=== PATIENT | female | born 1930 | race Caucasian/White ===

== ENCOUNTER 2017-02-19 15:28 | Inpatient (IN) | payer MEDICARE, BC ==
[2017-02-19 16:45] LABS: Bilirubin Negative (Negative); Blood, Urine Negative (Negative); Glucose, Urine (Dipstick) Negative (Negative); Ketone, Urine Negative (Negative); Nitrite Negative (Negative); Protein, Urine (Dipstick) Negative (Neg-Trace)
[2017-02-19 16:48] LABS: Bacteria/HPF None Seen HPF (None Seen); Hyaline Casts/LPF 0-3 HYALINE CAST LPF (0-3 Hyaline); RBC/HPF 0-3 HPF (0-3); Squamous Epithelial 0-3 HPF (0-3)
[2017-02-19 17:53] LABS: #Basophils 0.1 thou/uL (0.0-0.2); #Eosinphils 0.1 thou/uL (0.0-0.7); #Monocytes 0.5 thou/uL (0.11-0.59); #Neutrophils 4.7 thou/uL (1.40-6.50); %Basophils 0.8 % (0.0-1.0); %Eosinophils 1.5 % (0.0-10.0); %Lymphocytes 26.7 % (21.0-51.0); %Monocytes 7.4 % (0.0-10.0); Hematocrit 37.5 % (36.0-47.0); Mean Platelet Volume 8.6 fL (7.4-10.4); Red Blood Cell (RBC) Count 3.96 mill/uL (4.20-5.40); White Blood Cell (WBC) Count 7.3 thou/uL (4.8-10.8)
--- NOTE | 2017-02-19 18:10 | RAD ---
CHEST ONE VIEW 02/19/17 HISTORY: Near syncopal episode and weakness. Atrial fibrillation. COMPARISON: None. FINDINGS: Portable upright chest: Atherosclerosis of the aorta. Calcified AP window lymph node. Normal cardiac silhouette. The pulmonar y vessels and hilum are normal. Costophrenic angles are clear. No consolidation or masses. Chronic ch anges are presumed to be throughout the lung parenchyma. Bilateral apical pleural thickening. No pneu mothorax. Hiatal hernia is noted. Dorsal column stimulator is identified. IMPRESSION: No acute cardiopulmonary process. POS: [facility]
[2017-02-19 18:16] LABS: ALT (SGPT) 10 U/L (8-55); AST (SGOT) 15 U/L (5-34); Alkaline Phosphatase 65 U/L (40-150); Anion Gap 11 mmol/L (10-20); BUN (Urea Nitrogen) 6 mg/dL (9.8-20.1); Bilirubin, Total 0.3 mg/dL (0.2-1.2); CK (CPK) 72 U/L (29-168); Calc. Creatinine Clearance 0 mL/min (70-130); Calcium 8.7 mg/dL (7.8-10.44); Carbon Dioxide 25 mmol/L (23-31); Chloride 100 mmol/L (98-107); Estimated GFR-MDRD 85; Globulin 2.5 g/dL (2.4-3.5); Magnesium 1.8 mg/dL (1.6-2.6)
[2017-02-19 18:20] LABS: Troponin I Less than 0.010 ng/mL (< 0.028)
--- NOTE | 2017-02-19 18:22 | CT ---
CT BRAIN 02/19/17 PROVIDED CLINICAL HISTORY: Syncope. FINDINGS: No comparisons. The ventricular system appears normal in size and morphology. There is no evidence for intracranial h emorrhage or mass effect. The extracranial soft tissues and osseous structures demonstrate no acute a bnormality. IMPRESSION: No evidence for intracranial hemorrhage or mass effect. POS: [facility]
[2017-02-19] MEDS ORDERED: HYDROcodone/Acetaminophen 10/325 mg Tablet ONE (19:42)
[2017-02-19] MEDS ORDERED: Morphine IR Tab 15 MG TAB PO SCH (20:00)
[2017-02-19] MEDS ORDERED: HYDROcodone/Acetaminophen 10/325 mg Tablet PO SCH (23:59)
[2017-02-20 00:17] VITALS: BMI 24.6
[2017-02-20] MEDS ORDERED: Ondansetron HCl/PF 4 MG/2 ML Vial IVP PRN (00:38)
[2017-02-20] MEDS ORDERED: Acetaminophen 325 MG TAB PO PRN (00:38)
[2017-02-20] MEDS: Sodium Chloride 0.9% 1,000 ML IV SCH ×2 (01:56→17:52)
--- NOTE | 2017-02-20 03:34 | HP ---
REASON FOR ADMISSION: Syncope, TIA, new onset atrial fibrillation. HISTORY OF PRESENT ILLNESS: The patient gives history of standing in kitchen on Saturday. She was trying to take her pills, but suddenly got pale and fell backwards. This was witnessed by her . From then on, she has been feeling dizzy and sick. She also says that she had a similar episode two months back. She also mentions that she has been getting short of breath on minimal exertion at home. No prior cardiac workup. On arrival here, the patient was found to be in new onset atrial fibrillation, but was rate controlled. She normally ambulates with a rolling walker at home. She has chronic pain and follows up with Dr. Brink. She has had nearly six back surgeries. The patient seems to twitch her right eye with almost ptosis like, but opens it wide and also has flattening of left nasolabial fold. PAST MEDICAL AND SURGICAL HISTORY: History of chronic back pain with nearly 6 surgeries done. She has had a right foot surgery, bilateral hand surgery, both ankle surgery, left shoulder surgery, tonsillectomy, hysterectomy, internal stimulator for chronic pain. CURRENT MEDICATIONS: Takes morphine 30 mg p.o. 3 times daily, [place] 10/325 mg q.6 hourly p.r.n., Robaxin p.r.n., Reglan p.r.n. Takes a PPI, which she cannot remember for GERD. The patient goes to [facility]. PERSONAL HISTORY: Does not abuse alcohol or drugs. No history of smoking. No known drug allergies. FAMILY HISTORY: Mother of CHF and its complications in her 80s. Her father also of CHF in his 80s. She lives with her who is had recent CO and also has history of Crohn's disease. REVIEW OF SYSTEMS: The following complete review of systems was negative, unless otherwise mentioned in the HPI or below: Constitutional: Weight loss or gain, ability to conduct usual activities. Skin: Rash, itching. Eyes: Double vision, pain. ENT/Mouth: Nose bleeding, neck stiffness, pain, tenderness. Cardiovascular: Palpitations, dyspnea on exertion, orthopnea. Respiratory: Shortness of breath, wheezing, cough, hemoptysis, fever or night sweats. Gastrointestinal: Poor appetite, abdominal pain, heartburn, nausea, vomiting, constipation, or diarrhea. Genitourinary: Urgency, frequency, dysuria, nocturia. Musculoskeletal: Pain, swelling. Neurologic/Psychiatric: Anxiety, depression. Allergy/Immunologic: Skin rash, bleeding tendency. PHYSICAL EXAMINATION: GENERAL: The patient is an 86-year-old female, who is currently not in any acute distress. VITAL SIGNS: Blood pressure 146/80, pulse 90 per minute, respiratory rate 16 per minute, temperature 98.5 degrees Fahrenheit, saturating 95% on room air. NECK: Supple, no elevated JVD. HEENT: Eyes: Extraocular muscles are intact. Pupils are reacting to light. Oral cavity: Mucous membranes are moist. No exudates or congestion. CARDIOVASCULAR SYSTEM: S1, S2 heard. Irregular rhythm. RESPIRATORY SYSTEM: Air entry 1+ bilateral. No rales or rhonchi. ABDOMEN: Soft, bowel sounds heard. No tenderness, rigidity or guarding. EXTREMITIES: No peripheral edema or calf tenderness. VASCULAR SYSTEM: Peripheral pulses 1+ bilateral. No ischemic ulcerations or gangrene. CENTRAL NERVOUS SYSTEM: No gross focal deficits seen. The patient is alert, awake, oriented x3. PSYCHIATRIC: The patient's mood is euthymic. No hallucinations or delusions. LABORATORY AND X-RAY FINDINGS: Chest x-ray done shows no acute cardiopulmonary process. CT brain without contrast done showed no intracranial hemorrhage or mass effect. Sodium 132, potassium 4.0, BUN 6, creatinine 0.6, glucose 109. Liver enzymes within normal limits. One set of cardiac enzymes are negative. Albumin is 3.5. White count of 7, H&H are 12 and 37, platelet count is 184, MCV is 94 with 63% neutrophils. EKG done shows atrial fibrillation at 91 beats per minute. 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 We will continue her morphine as before to prevent withdrawal. She will be on full dose of aspirin along with a small dose of Lipitor and normal saline at 80 mL per hour. We will obtain orthostatic blood pressures along with MRI and complete stroke workup including ultrasound carotids and echo with 2D Doppler to rule out thrombus. We will also consult Neurology electronic transaction implementer, Dr. Bc Paul and Cardiology electronic transaction implementer, Dr. Kline. The patient is 86 years old and has had nearly 2 falls in the last 2 months and not sure if she would be a candidate for anticoagulation with new onset atrial fibrillation. It is pretty much rate controlled and we will place her on a small dose of Lopressor at 25 mg twice daily for now. Please note I have seen and examined patient on 02/19/2017. MTDD
[2017-02-20] MEDS: Morphine IR Tab 15 MG TAB PO SCH ×2 (04:04→15:34)
[2017-02-20 06:38] LABS: #Eosinphils 0.2 thou/uL (0.0-0.7); #Lymphocytes 1.9 thou/uL (1.20-3.40); #Monocytes 0.5 thou/uL (0.11-0.59); #Neutrophils 3.7 thou/uL (1.40-6.50); %Basophils 0.4 % (0.0-1.0); %Eosinophils 2.9 % (0.0-10.0); %Lymphocytes 30.5 % (21.0-51.0); %Monocytes 7.9 % (0.0-10.0); Hematocrit 36.1 % (36.0-47.0); Mean Platelet Volume 8.6 fL (7.4-10.4); Red Blood Cell (RBC) Count 3.86 mill/uL (4.20-5.40); White Blood Cell (WBC) Count 6.4 thou/uL (4.8-10.8)
[2017-02-20 06:58] LABS: Anion Gap 11 mmol/L (10-20); BUN (Urea Nitrogen) 5 mg/dL (9.8-20.1); Calc. Creatinine Clearance 79 mL/min (70-130); Calcium 8.8 mg/dL (7.8-10.44); Carbon Dioxide 27 mmol/L (23-31); Chloride 104 mmol/L (98-107); Cholesterol 210 mg/dl (< 200 Desired); Estimated GFR-MDRD Greater than 90; LDL Cholesterol, Calculated 141 mg/dL
[2017-02-20] MEDS: HYDROcodone/Acetaminophen 10/325 mg Tablet PO PRN ×3 (08:09→17:54)
[2017-02-20] MEDS: Metoprolol Tartrate 25 MG TAB PO SCH ×2 (08:11→20:53)
[2017-02-20] MEDS: Docusate 100 MG CAP PO SCH ×2 (08:11→20:52)
[2017-02-20] MEDS: Famotidine 20 MG TAB PO SCH ×2 (08:11→20:52)
--- NOTE | 2017-02-20 08:20 | ULT ---
BILATERAL CAROTID DUPLEX ULTRASOUND: HISTORY: TIA. TECHNIQUE: [place] scale ultrasound with color flow and spectral Doppler imaging of the extracranial carotid artery systems was performed bilaterally. FINDINGS: There is plaque formation on either side. The peak systolic velocity in the right ICA measures 155 cm/s with an end-diastolic velocity of 47 cm /s and a systolic ratio of 1.85. The peak systolic velocity in the left ICA measures 82 cm/s with an end-diastolic velocity of 14 cm/s and a systolic ration of 0.95. Flow in both vertebral arteries remains antegrade. IMPRESSION: Moderate (50-69%) stenosis involving the right internal carotid artery. POS: OFF
[2017-02-20] MEDS ORDERED: Loratadine 10 MG TAB PO PRN (08:45)
[2017-02-20] MEDS ORDERED: Chloraseptic Spray 180 ml Bottle PO PRN (08:45)
[2017-02-20] MEDS ORDERED: HYDROcodone/Acetaminophen 5/325 mg Tablet PO PRN (08:45)
[2017-02-20] MEDS ORDERED: hydrALAZINE 20 MG/ML VIAL SLOW IVP PRN (08:45)
[2017-02-20] MEDS ORDERED: Diabetic Tussin 200 MG/10 ML UDCUP PO PRN (08:45)
[2017-02-20] MEDS ORDERED: Mag-Al 1200 mg/1200 mg/30 ML UDCUP PO PRN (08:45)
[2017-02-20] MEDS ORDERED: Sodium Chloride 0.65% Nasal 44 ML BOT EA NARE PRN (08:45)
[2017-02-20] MEDS ORDERED: Eucerin (Mineral Oil/Petrolatum,White) 30 gm Jar TOP PRN (08:45)
[2017-02-20] MEDS ORDERED: Milk Of Magnesia 30 ML UDCUP PO PRN (08:45)
[2017-02-20] MEDS ORDERED: Artificial Tears 18 DROP/0.9 ML EA EYE PRN (08:45)
[2017-02-20] MEDS ORDERED: Temazepam 15 MG CAP PO PRN (08:45)
[2017-02-20] MEDS ORDERED: Aspirin 325 mg Enteric Coated Tablet PO SCH (09:00)
[2017-02-20] MEDS ORDERED: Enoxaparin Sodium 40 MG/0.4 ML SYRINGE SC SCH (09:00)
[2017-02-20] MEDS: Metoclopramide HCl 10 MG TAB PO PRN (10:31)
[2017-02-20] MEDS ORDERED: Iopamidol 370 76% 100 ML VIAL ONE (11:58)
--- NOTE | 2017-02-20 12:32 | PDOC.PN ---
- Subjective Encounter Start Date: 02/20/17 Encounter Start Time: 10:10 -: old records requested/rev Patient seen and examined. No new complaints. No overnight events - Objective Resuscitation Status: Resuscitation Status FULL:Full Resuscitation MAR Reviewed: Yes Vital Signs & Weight: Vital Signs (12 hours) Temp Pulse Resp BP BP BP Pulse Ox 02/20/17 11:58 98.8 F 82 20 145/70 H 94 L 02/20/17 08:00 98.3 F 100 20 153/76 H 94 L 02/20/17 03:14 97.6 F 86 16 133/69 98 02/20/17 02:12 150/82 H 137/70 154/70 H Weight Weight 167 lb 4.8 oz I&O: 02/19/17 02/20/17 02/21/17 06:59 06:59 06:59 Intake Total 577 Balance 577 Result Diagrams: 02/20/17 05:53 02/20/17 05:53 Radiology Reviewed by me: Yes (Carotid US, CT brain) EKG Reviewed by me: Yes (afib) Phys Exam - Physical Examination Constitutional: NAD HEENT: PERRLA, moist MMs, sclera anicteric Neck: no JVD, supple Respiratory: no wheezing, no rales, no rhonchi Cardiovascular: no significant murmur, irregular Gastrointestinal: soft, non-tender, no distention, positive bowel sounds Musculoskeletal: no edema, pulses present Neurological: non-focal, normal sensation, moves all 4 limbs Psychiatric: normal affect, A&O x 3 Skin: no rash, normal turgor Dx/Plan (1) Carotid stenosis, right Code(s): I65.21 - OCCLUSION AND STENOSIS OF RIGHT CAROTID ARTERY Status: Acute (2) New onset atrial fibrillation Code(s): I48.91 - UNSPECIFIED ATRIAL FIBRILLATION Status: Acute (3) Syncope Code(s): R55 - SYNCOPE AND COLLAPSE Status: Acute (4) TIA (transient ischemic attack) Status: Acute (5) Chronic low back pain Code(s): M54.5 - LOW BACK PAIN; G89.29 - OTHER CHRONIC PAIN Status: Chronic (6) GERD (gastroesophageal reflux disease) Code(s): K21.9 - GASTRO-ESOPHAGEAL REFLUX DISEASE WITHOUT ESOPHAGITIS Status: Chronic - Plan cont current plan of care, plan discussed w/ family * pt does not want to go for MRI * will get CT angio head and neck for carotid stenosis and TIA * today Echo * cardiology and neurology consulted * discussed with pt and about plan of care * medication reviewed as below * symptomatic treatment * continue IVF * rate controlled. Review of Systems - Review of Systems ENT: negative: Ear Pain, Ear Discharge, Nose Pain, Nose Discharge, Nose Congestion, Mouth Pain, Mouth Swelling, Throat Pain, Throat Swelling, Other Respiratory: negative: Cough, Dry, Shortness of Breath, Hemoptysis, SOB with Excertion, Pleuritic Pain, Sputum, Wheezing Cardiovascular: negative: chest pain, palpitations, orthopnea, paroxysmal nocturnal dyspnea, edema, light headedness, other Gastrointestinal: negative: Nausea, Vomiting, Abdominal Pain, Diarrhea, Constipation, Melena, Hematochezia, Other Genitourinary: negative: Dysuria, Frequency, Incontinence, Hematuria, Retention , Other Musculoskeletal: negative: Neck Pain, Shoulder Pain, Arm Pain, Back Pain, Hand Pain, Leg Pain, Foot Pain, Other Skin: negative: Rash, Lesions, Yared, Bruising, Other - Medications/Allergies Allergies/Adverse Reactions: Allergies Allergy/AdvReac Type Severity Reaction Status Date / Time No Known Drug Allergies Allergy Verified 02/19/17 20:30 Medications: Current Medications Acetaminophen (Tylenol) 650 mg PO Q4H PRN PRN Reason: Headache/Fever or Pain Hydrocodone Bitart/Acetaminophen ([place] 10/325) 1 tab PO Q4H PRN PRN Reason: Moderate Pain (4-6) Last Admin: 02/20/17 08:09 Dose: 1 tab Al Hydroxide/Mg Hydroxide (Maalox) 15 ml PO Q4H PRN PRN Reason: Heartburn or Indigestion Artificial Tears (Tears Naturale) 0 drop EA EYE PRN PRN PRN Reason: Dry Eyes Aspirin (Ecotrin) 325 mg PO DAILY [facility] Last Admin: 02/20/17 08:11 Dose: 325 mg Atorvastatin Calcium (Lipitor) 10 mg PO HS [facility] Docusate Sodium (Colace) 100 mg PO BID [facility] Last Admin: 02/20/17 08:11 Dose: 100 mg Enoxaparin Sodium (Lovenox) 40 mg SC 0900 [facility] Last Admin: 02/20/17 08:12 Dose: 40 mg Famotidine (Pepcid) 20 mg PO BID [facility] Last Admin: 02/20/17 08:11 Dose: 20 mg Guaifenesin (Robitussin Sf) 200 mg PO Q4H PRN PRN Reason: Cough Hydralazine HCl (Apresoline) 10 mg SLOW IVP Q4H PRN PRN Reason: Systolic BP > 180 Sodium Chloride (Normal Saline 0.9%) 1,000 mls @ 80 mls/hr IV .[id number] [facility] Last Admin: 02/20/17 01:56 Dose: 1,000 mls Influenza Virus Vaccine (Fluzone High-Dose 2016- Syr) 0.5 ml IM .ONCE ONE Stop: 02/21/17 09:01 Last Admin: 02/20/17 10:31 Dose: 0.5 ml Loratadine (Claritin) 10 mg PO DAILYPRN PRN PRN Reason: Sinus Symptoms Magnesium Hydroxide (Milk Of Magnesium) 30 ml PO DAILYPRN PRN PRN Reason: Constipation Metoclopramide HCl (Reglan) 10 mg PO TID PRN PRN Reason: nausea Last Admin: 02/20/17 10:31 Dose: 10 mg Metoprolol Tartrate (Lopressor) 25 mg PO BID [facility] Last Admin: 02/20/17 08:11 Dose: 25 mg Mineral Oil/White Petrolatum (Eucerin Cream) 0 gm TOP BIDPRN PRN PRN Reason: Dry Skin Ondansetron HCl (Zofran) 4 mg IVP Q6H PRN PRN Reason: Nausea/Vomiting Phenol (Chloraseptic [place] 180 Ml Bot) 0 ml PO PRN PRN PRN Reason: Sore Throat Pneumococcal Polyvalent Vaccine (Pneumovax 23) 0.5 ml IM .ONCE ONE Stop: 02/21/17 09:01 Last Admin: 02/20/17 10:34 Dose: 0.5 ml Sodium Chloride (Flush - Normal Saline) 10 ml IVF Q12HR [facility] Last Admin: 02/20/17 08:12 Dose: Not Given Sodium Chloride (Flush - Normal Saline) 10 ml IVF PRN PRN PRN Reason: Saline Flush Sodium Chloride ([place] Nasal [place] 0.65%) 0 ml EA NARE QIDPRN PRN PRN Reason: Nasal Congestion Temazepam (Restoril) 15 mg PO HSPRN PRN PRN Reason: Insomnia
--- NOTE | 2017-02-20 15:15 | CT ---
CT ANGIO OF THE HEAD WITH AND WITHOUT CONTRAST: Technique: Multiple axial tomograms were obtained through the head both pre and post IV contrast. Pos t contrast images were obtained with dynamic arterial phase enhancement following an angio protocol w ith multiplanar reconstruction and 3D post processing. History: Carotid stenosis. FINDINGS: Noncontrast CT scan of head shows no evidence of mass, hemorrhage, or infarct. Mild mucosal thickenin g in the sphenoid air cells. Paranasal sinuses otherwise clear. CT angio of the head shows patent intracranial internal carotid arteries. Mild atherosclerotic calcif ications seen in the carotid portions of both internal carotid arteries, however, no stenosis. Anteri or cerebral arteries and middle cerebral arteries appear unremarkable. No evidence of stenosis or occ lusion. Basilar artery is patent. Posterior cerebrals appear unremarkable. Dural venous sinuses appea r patent. IMPRESSION: Unremarkable CT cerebral angio. CT ANGIO NECK Technique: Multiple axial tomograms were obtained through the neck with arterial phase enhancement fo llowin angio protocol with multiplanar reconstruction and 3D post processing. History: Carotid stenosis. FINDINGS: Carotid doppler study 02-20-17 described hemodynamically significant stenosis in the right internal c arotid artery. No evidence of stenosis at the origin of the arch vessels. The right common carotid artery is unremarkable. There is calcified plaque at the right carotid bulb and bifurcation extending into the proximal right internal carotid artery. There is focal stenosis above the bulb which does show evidence of approxim ately 50% diameter stenosis according to NASCET criteria. The right ICA above this stenosis is unrema rkable. Left common carotid is unremarkable although mildly tortuous. There is calcified plaque in the left bulb and proximal left ICA. This results in mild stenosis of th e proximal left ICA. The degree of stenosis is estimated in the 30-40% range by NASCET criteria. Vertebral arteries are patent and unremarkable. No soft tissue abnormality identified. IMPRESSION: 1. Moderate stenosis in the proximal right ICA and mild to moderate stenosis in the proximal left ICA . The right ICA stenosis is hemodynamically significant as described above. POS: [facility]
--- NOTE | 2017-02-20 15:31 | CON ---
DATE OF CONSULTATION: 02/20/2017 REASON FOR CONSULTATION: New onset A. fib and questionable TIA. HISTORY OF PRESENT ILLNESS: Ms. Rosas is a pleasant 86-year-old woman with no previous history o f underlying coronary disease. She recently presented with syncope. She has had 2 total episodes in the last couple of weeks. There were no predisposing symptoms. There was no warning. No chest omar n or pressure. No shortness of breath. No other ameliorating or exacerbating factors. She did have left-sided facial weakness and was concerned for CVA versus Herrera's palsy. PAST MEDICAL HISTORY: Chronic back pain and longer takes injections, right foot surgery, hand surger y, ankle surgery, shoulder surgery, tonsillectomy and hysterectomy. MEDICATIONS: Include [place], Robaxin, Reglan, PPI, morphine. SOCIAL HISTORY: No current alcohol or tobacco use. FAMILY HISTORY: Negative for CAD. REVIEW OF SYSTEMS: Ten point review of systems reviewed and as above, otherwise negative. PHYSICAL EXAMINATION: VITAL SIGNS: Blood pressure 145/70, pulse 82, temperature 98.8. GENERAL: Patient is a pleasant male/female who is in no acute distress. The patient appears his/her stated age. NEUROLOGIC: The patient is alert and oriented times 3 with no focal neurologic deficits. HEENT: Sclerae without icterus. Mouth has moist mucous membranes with normal pallor. NECK: No JVD. Carotid upstroke brisk. No bruits bilaterally. LUNGS: Clear to auscultation with unlabored respirations. BACK: No scoliosis or kyphosis. CARDIAC: Irregularly irregular with normal S1 and S2. No S3 or S4 noted. No significant rubs, murm urs, thrills, or gallops noted throughout the precordium. PMI is not displaced. There is no paraste rnal heave. ABDOMEN: Soft, nontender, nondistended. No peritoneal signs present. No hepatosplenomegaly. No ab normal striae. EXTREMITIES: 2+ femoral and 2+ dorsalis pedis pulses. No cyanosis, clubbing, or edema. SKIN: No gross abnormalities. PERTINENT LABORATORY DATA: Hemoglobin is 11.8, creatinine is 0.62. EKG shows atrial fibrillation with nonspecific ST-T wave changes. IMPRESSION: 1. Atrial fibrillation. 2. ? transient ischemic attack versus Herrera's palsy. RECOMMENDATIONS: Ms. Rosas does have new onset A. fib. She has syncopal episode. She may have paroxysmal atrial fibrillation and upon conversion had a bradycardic episode. At this point, her tel emetry monitoring has been stable. Her syncope may have also been due to recent TIA. At this point, given new onset A. fib and CHADS-VASc score greater than 2, would recommend novel oral anticoagulati on therapy. I did discuss this in full detail including the risks and benefits. She has agreed to p roceed with Eliquis 5 mg 1 p.o. b.i.d. Echo with Doppler will also be reviewed. Disposition from ne urology on TIA versus Herrera's palsy or CVA is also warranted.
[2017-02-20] MEDS: Morphine ER 30 MG TAB PO SCH ×2 (15:35→23:53)
[2017-02-20] MEDS ORDERED: Enoxaparin Sodium 80 MG/0.8 ML SYRINGE SC SCH (21:00)
[2017-02-20] MEDS ORDERED: Atorvastatin Calcium 10 MG TAB PO SCH (21:00)
--- NOTE | 2017-02-20 21:38 | CON ---
DATE OF CONSULTATION: 02/20/2017 REFERRING PROVIDER: Georgia Rodrigues M.D. REASON FOR CONSULTATION: Dizziness. HISTORY OF PRESENT ILLNESS: Ms. Rosas is a pleasant 86-year-old female who has been co nsidered for evaluation of dizziness. The patient reports that she was in the kitchen and was taking her medication after she took the medication she suddenly became very pale and passed out and fell t o the ground. Her witnessed the event who noticed that she was very pale and was unresponsiv e for less than one minute, there were no convulsions noted. No tongue biting or loss of bladder con trol noted. She had no postictal confusion. She reports that she had similar episode couple months ago while she was in bathroom, during that time as well she had became pale and passed out. She stat es that she has been having dizziness when she stands up out of the chair and feels like that she was going to pass out. She denies any headache, chest pain, palpitation, vision changes, numbness, ting ling or weakness. She denies any prior history of seizure disorder. PAST MEDICAL HISTORY: Significant for hypertension, new onset atrial fibrillation, chronic back pain . PAST SURGICAL HISTORY: Significant for lumbar spine surgery x6, right foot surgery, bilateral hand s urgery, bilateral ankle surgery, left shoulder surgery, tonsillectomy, hysterectomy, pain stimulator placement. CURRENT MEDICATIONS: Please review MAR. ALLERGIES: No known drug allergies. FAMILY HISTORY: Noncontributory. SOCIAL HISTORY: She denies smoking, alcohol use, or illicit drug use. REVIEW OF SYSTEMS: As mentioned in the HPI, otherwise negative. PHYSICAL EXAMINATION: VITAL SIGNS: Blood pressure of 142/67, pulse of 88, temperature of 98.3, respirations of 18, O2 sats of 93% on room air. GENERAL: Well-developed, well-nourished female in no apparent distress. RESPIRATORY: Clear to auscultation bilaterally. CARDIOVASCULAR: Irregular rate and rhythm. NEUROLOGIC: Mental status: The patient is awake, alert, oriented x3. Speech and language: Fluent speech. Cranial nerves: Pupils are 3 mm and reactive. Visual sanders are intact. Extraocular muscl es are intact. No nystagmus is noted. Face is symmetric. Tongue and uvula are midline. Motor exam showed normal tone and bulk with 5/5 strength in both upper and lower extremities. Sensory: Sensat ion is intact and symmetric. Deep tendon reflexes 2+ reflexes in both upper and lower extremities. Babinski: Plantar responses flexion bilaterally. Coordination intact to [id number] tapping bilaterally. LABORATORY DATA: Reviewed, which included CBC, CMP, lipid profile, and urinalysis, which is signific ant for hemoglobin of 11.8 and hematocrit of 36.1. Sodium of 132, total cholesterol of 210, LDL of 1 41, HDL of 56, and triglycerides of 63. Urinalysis showed 7-10 wbc and small leukocyte esterase. IMAGING STUDIES: CT scan of the head without contrast was reviewed, which showed no acute intracrani al abnormality. CT angiogram of the head and neck were reviewed, which showed 50% stenosis involving the right ICA. IMPRESSION: 1. Syncope. 2. New onset atrial fibrillation. 3. Right internal carotid artery stenosis. PLAN: Ms. Rosas is a pleasant 86-year-old female who presented with the episode of syn cope. She is found to have new onset atrial fibrillation, recent event is likely secondary to underl cherise cardiac cause. She had a CT angiogram of the neck done, which showed moderate hemodynamically s ignificant stenosis that on the right ICA, which is at 50%, this is best managed medically. At this time, I will recommend continuing her on aspirin 325 mg daily for secondary stroke prevention. Thank you for the consultation.
[2017-02-21] MEDS: Sodium Chloride 0.9% 1,000 ML IV SCH ×2 (01:57→05:55)
[2017-02-21 03:49] VITALS: TEMP 98.1
--- NOTE | 2017-02-21 06:36 | PRG ---
DATE OF SERVICE: 02/21/2017 Ms. Rosas is doing well, no current complaints of chest pain, pressure, dizziness, lightheadednes s, or syncope. PHYSICAL EXAMINATION: VITAL SIGNS: Blood pressure 125/75, pulse 75, temperature 98.1. LUNGS: Clear to auscultation. CARDIAC: Irregularly irregular. ABDOMEN: Soft, nontender, nondistended. EXTREMITIES: No edema. IMPRESSION: 1. Atrial fibrillation. 2.? Transient ischemic attack. RECOMMENDATIONS: I have added Eliquis 5 mg 1 p.o. t.i.d. I have also discontinue Enoxaparin. Would continue metoprolol 25 mg 1 p.o. b.i.d. Her rate appears to be well controlled. Plan is to follow up with Ms. Rosas in the next 1-2 weeks.
[2017-02-21 07:48] VITALS: BP 159/74
[2017-02-21] MEDS: Famotidine 20 MG TAB PO SCH (08:13)
[2017-02-21] MEDS: Docusate 100 MG CAP PO SCH (08:13)
[2017-02-21] MEDS: Morphine ER 30 MG TAB PO SCH (08:13)
[2017-02-21] MEDS: Metoprolol Tartrate 25 MG TAB PO SCH (08:13)
[2017-02-21] MEDS ORDERED: FLU VACC TS2017-18 (>65YR) 0.5 ML SYRINGE IM ONE (09:00)
[2017-02-21] MEDS ORDERED: Apixaban 5 MG TAB PO SCH (09:00)
[2017-02-21] MEDS: Metoclopramide HCl 10 MG TAB PO PRN (09:49)
--- NOTE | 2017-02-21 10:56 | DIS ---
DATE OF ADMISSION: 02/19/2017 DATE OF DISCHARGE: 02/21/2017 PRIMARY CARE PHYSICIAN: Dr. Alissa Murdock. DISCHARGE DISPOSITION: Home. PRIMARY DISCHARGE DIAGNOSES: 1. Syncope. 2. Transient ischemic attack. 3. New onset atrial fibrillation. 4. Moderate right carotid stenosis. 5. Moderate mitral and tricuspid regurgitation. SECONDARY DISCHARGE DIAGNOSES: Gastroesophageal reflux disease and chronic low back pain. PRIMARY PROCEDURE/OPERATION: None. RADIOLOGICAL INVESTIGATION: CT brain on admission showed no acute intracranial process. Chest x-ray showed no acute cardiopulmonary process. Echocardiography showed moderate mitral and tricuspid regurgitation. Carotid Doppler showed right-sided carotid stenosis. CT angiography, head and neck, consistent with moderate stenosis of right internal carotid artery as well as mild stenosis on the left internal carotid artery. SIGNIFICANT LABORATORY DATA: WBC 6.4, hemoglobin 11.8, platelets 181. Sodium 138, potassium 3.9, BUN 5, creatinine 0.62, calcium 8.8. LFTs normal. Cardiac enzymes negative. LDL 141. DISCHARGE MEDICATIONS: Eliquis 5 mg p.o. b.i.d., aspirin 81 mg p.o. daily, Lipitor 10 mg p.o. at bedtime, [place] one or two tablets q.4 hourly p.r.n., Reglan 10 mg t.i.d. p.r.n., metoprolol 50 mg p.o. b.i.d., MS Contin 30 mg p.o. q.8 hourly, omeprazole 20 mg p.o. daily. CONTRAINDICATIONS: None. CODE STATUS: FULL CODE. INPATIENT CONSULTANTS: Dr. Beverly Yancey was consulted and he recommended to treat carotid stenosis medically. Dr. Kline was consulted, who recommended to start anticoagulation and outpatient followup. TEST RESULTS PENDING ON DISCHARGE: None. ALLERGIES: No known drug allergy. DISCHARGE PLAN: Post hospital, the patient will follow up with primary care physician, Dr. Kline, and neurologist as instructed. HOSPITAL COURSE: An 86-year-old female, who was admitted by Dr. Rodrigues. Please see his H and P for further details. The patient had an episode of syncope as well as TIA and that is why she was admitted on the stroke floor. Initial CT brain was negative. Chest x-ray was normal. After admission, we did a neuro check and stroke workup. Echocardiography showed moderate mitral and tricuspid regurgitation. This patient also had new onset atrial fibrillation and her rate was under control with metoprolol. Cardiology was consulted and they recommended anticoagulation. We started and Eliquis therapy. We discussed the risk and benefit of Eliquis therapy and patient agreed to continue on Eliquis therapy. As a part of stroke workup, we did carotid Doppler study, which showed carotid stenosis and subsequently we found that the CT angiography also showed moderate stenosis on the right and [id number] stenosis on the left. Neurology recommended to continue medical therapy for her carotid stenosis. Patient medically remained stable. All consultants cleared her for discharge. PHYSICAL EXAMINATION: The patient is seen and examined at bedside today. VITAL SIGNS: Currently, temperature 98.1, pulse 87 and irregular, respiratory rate 20, saturation 92%, blood pressure 159/74, weight 167 pounds. GENERAL: The patient is currently alert, awake, in no acute distress. HEAD: Normocephalic, atraumatic. LUNGS: Clear to auscultation without any rhonchi. CARDIAC: S1, S2 irregular, soft systolic murmur noted, no gallop, no rub. ABDOMEN: Soft and benign without any tenderness. EXTREMITIES: No edema. NEUROLOGIC: Nonfocal examination. While in hospital, physical therapy recommended SNF referral, but when I spoke with the patient today, she did not wanted to go to nursing home home rather she wanted to go home. At this point, the patient is medically stable for discharge. While in hospital, her urine culture also came back negative. All new medication prescriptions sent to her pharmacy. Total time spent on discharge day more than 30 minutes MTDD
--- NOTE | 2017-02-21 12:21 | PDOC.PN ---
- Subjective Encounter Start Date: 02/21/17 Encounter Start Time: 07:05 Patient seen and examined. No new complaints. No overnight events - Objective Resuscitation Status: Resuscitation Status FULL:Full Resuscitation MAR Reviewed: Yes Vital Signs & Weight: Vital Signs (12 hours) Temp Pulse Resp BP BP Pulse Ox 02/21/17 07:48 98.1 F 87 20 159/74 H 92 L 02/21/17 03:43 98.1 F 79 20 125/75 96 Weight Weight 167 lb 4.8 oz I&O: 02/20/17 02/21/17 02/22/17 06:59 06:59 06:59 Intake Total 577 1653 Balance 577 1653 Result Diagrams: 02/20/17 05:53 02/20/17 05:53 EKG Reviewed by me: Yes (afib) Phys Exam - Physical Examination Constitutional: NAD HEENT: moist MMs, sclera anicteric Neck: no JVD, supple Respiratory: no wheezing, no rales, no rhonchi Cardiovascular: no significant murmur, irregular Gastrointestinal: soft, non-tender, no distention, positive bowel sounds Musculoskeletal: no edema, pulses present Neurological: non-focal, normal sensation, moves all 4 limbs Psychiatric: normal affect, A&O x 3 Skin: no rash, normal turgor Dx/Plan (1) Carotid stenosis, right Code(s): I65.21 - OCCLUSION AND STENOSIS OF RIGHT CAROTID ARTERY Status: Acute (2) New onset atrial fibrillation Code(s): I48.91 - UNSPECIFIED ATRIAL FIBRILLATION Status: Acute (3) Syncope Code(s): R55 - SYNCOPE AND COLLAPSE Status: Acute (4) TIA (transient ischemic attack) Status: Acute (5) Chronic low back pain Code(s): M54.5 - LOW BACK PAIN; G89.29 - OTHER CHRONIC PAIN Status: Chronic (6) GERD (gastroesophageal reflux disease) Code(s): K21.9 - GASTRO-ESOPHAGEAL REFLUX DISEASE WITHOUT ESOPHAGITIS Status: Chronic - Plan cont current plan of care * medication reviewed as below * symptomatic treatment * see discharge summery * medically stable for discharge.. Review of Systems - Review of Systems ENT: negative: Ear Pain, Ear Discharge, Nose Pain, Nose Discharge, Nose Congestion, Mouth Pain, Mouth Swelling, Throat Pain, Throat Swelling, Other Respiratory: negative: Cough, Dry, Shortness of Breath, Hemoptysis, SOB with Excertion, Pleuritic Pain, Sputum, Wheezing Cardiovascular: negative: chest pain, palpitations, orthopnea, paroxysmal nocturnal dyspnea, edema, light headedness, other Gastrointestinal: negative: Nausea, Vomiting, Abdominal Pain, Diarrhea, Constipation, Melena, Hematochezia, Other Genitourinary: negative: Dysuria, Frequency, Incontinence, Hematuria, Retention , Other Musculoskeletal: negative: Neck Pain, Shoulder Pain, Arm Pain, Back Pain, Hand Pain, Leg Pain, Foot Pain, Other - Medications/Allergies Allergies/Adverse Reactions: Allergies Allergy/AdvReac Type Severity Reaction Status Date / Time No Known Drug Allergies Allergy Verified 02/19/17 20:30
[2017-02-21] MEDS ORDERED: Metoprolol Tartrate 50 MG TAB PO SCH (21:00)
== END 2017-02-21 11:39 | disposition home or self-care (01) | DRG 69 ==
LOC: ERS 15:28 → 2SE 17:25
PROVIDERS: ADMIT Internal Medicine; ATTEND Internal Medicine
DX: G45.9 Transient cerebral ischemic attack, unspecified (principal); I08.1 Rheumatic disorders of both mitral and tricuspid valves; I48.91 Unspecified atrial fibrillation; G51.0 Bell's palsy; I10 Essential (primary) hypertension; F32.9 Major depressive disorder, single episode, unspecified; I65.23 Occlusion and stenosis of bilateral carotid arteries; G89.29 Other chronic pain; K21.9 Gastro-esophageal reflux disease without esophagitis; Z91.81 History of falling; Z79.891 Long term (current) use of opiate analgesic
CPT/HCPCS: 36415; 70450; 70496; 70498; 71010; 80048; 80053; 80061; 81003; 81015; 82553; 83735; 84484; 85025; 86850; 86900; 86901; 87086; 90471; 90682; 90732; 93005; 93306; 93880; A4216; G0008; G0009; G8978-GP-CJ; G8979-GP-CH; G8987-GO-CL; G8988-GO-CJ; G8996-GN-CI; G8997-GN-CI; J1650; J2405; Q2036

== ENCOUNTER 2017-03-06 13:03 | Emergency (ER) | payer MEDICARE, BC ==
[2017-03-06 14:24] LABS: Bilirubin Negative (Negative); Blood, Urine Negative (Negative); Clarity CLEAR (Clear); Glucose, Urine (Dipstick) Negative (Negative); Leukocyte Negative (Negative); Nitrite Negative (Negative); Protein, Urine (Dipstick) Negative (Neg-Trace); Specific Gravity, Urine 1.008 (1.002-1.036); pH, Urine 6.5 (5.0-9.0)
[2017-03-06 14:46] LABS: #Eosinphils 0.1 thou/uL (0.0-0.7); #Lymphocytes 1.8 thou/uL (1.20-3.40); #Monocytes 0.5 thou/uL (0.11-0.59); %Basophils 0.6 % (0.0-1.0); %Lymphocytes 21.4 % (21.0-51.0); %Neutrophils 71.1 % (42.0-75.0); Hemoglobin 12.7 g/dL (12.0-16.0); Mean Corpuscular HGB CONC 31.5 g/dL (32.0-36.0); Mean Corpuscular Hemoglobin 30.3 pg (27.0-31.0); Mean Corpuscular Volume 96.2 fl (81.0-99.0); Mean Platelet Volume 8.5 fL (7.4-10.4); Platelet Count 207 thou/uL (130-400); RBC Distribution Width 12.3 % (11.5-14.5); Red Blood Cell (RBC) Count 4.19 mill/uL (4.20-5.40); White Blood Cell (WBC) Count 8.4 thou/uL (4.8-10.8)
[2017-03-06 14:53] LABS: INR-International Normal Ratio 1.4; PTT 34.8 SEC (22.9-36.1)
--- NOTE | 2017-03-06 15:05 | RAD ---
PORTABLE CHEST ONE VIEW: Date: 03-06-17 Time: 2:55 p.m. History: Dyspnea. Dizziness. Weakness. FINDINGS: Comparison is made with exam of 02-19-17. The heart size is borderline. The aorta is tortuous. There is evidence of old granulomatous disease. The lungs are expanded without confluent areas of consolidation, pneumothorax, celestina pulmonary edema or pleural effusions. Dorsal column stimulator leads are again seen. A hiatal hernia is present. IMPRESSION: Stable exam. No acute process. POS: [facility]
[2017-03-06 15:09] LABS: ALT (SGPT) 7 U/L (8-55); AST (SGOT) 14 U/L (5-34); Albumin 3.6 g/dL (3.4-4.8); Alkaline Phosphatase 107 U/L (40-150); Anion Gap 15 mmol/L (10-20); BUN (Urea Nitrogen) 11 mg/dL (9.8-20.1); Bilirubin, Total 0.4 mg/dL (0.2-1.2); Calc. Creatinine Clearance 0 mL/min (70-130); Calcium 8.8 mg/dL (7.8-10.44); Carbon Dioxide 21 mmol/L (23-31); Chloride 105 mmol/L (98-107); Estimated GFR-MDRD 90; Globulin 2.3 g/dL (2.4-3.5); Glucose 110 mg/dL (83-110); Potassium 4.6 mmol/L (3.5-5.1); Protein, Total 5.9 g/dL (6.0-8.3); Sodium 136 mmol/L (136-145)
[2017-03-06 15:13] LABS: CKMB 0.8 ng/mL (0-6.6); Troponin I Less than 0.010 ng/mL (< 0.028)
--- NOTE | 2017-03-06 17:24 | CT ---
CT OF BRAIN PERFORMED WITHOUT CONTRAST ENHANCEMENT: 03/06/17 HISTORY: Altered mental status. COMPARISON: 02/19/17 study. Ventricular and cisternal system is within normal limits. There is no signs of intracerebral hemorrha ge or extra-axial fluid collections. The mastoid air cells and visualized sinuses are clear. IMPRESSION: No acute intracranial abnormalities. POS: [facility]
[2017-03-06] MEDS ORDERED: Morphine ER 30 MG TAB PO SCH (18:15)
--- NOTE | 2017-03-30 21:50 | EKG ---
Test Reason : DIZZINESS WEAKNESS Blood Pressure : / mmHG Vent. Rate : 073 BPM Atrial Rate : 357 BPM P-R Int : 000 ms QRS Dur : 074 ms QT Int : 376 ms P-R-T Axes : 000 015 041 degrees QTc Int : 414 ms Atrial fibrillation Abnormal ECG Confirmed by TYSON JIMENEZ ([id number]), acquisition editor CARRIE MARKS ([id number]) on 03/30/2017 9:49:51 PM Referred By: Confirmed By:TYSON JIMENEZ
== END 2017-03-06 19:58 | disposition home or self-care (01) ==
LOC: ERS 13:03
DX: R53.1 Weakness (principal); F32.9 Major depressive disorder, single episode, unspecified; Z79.899 Other long term (current) drug therapy; Z79.82 Long term (current) use of aspirin
CPT/HCPCS: 36415; 70450; 71045; 80053; 81003; 82553; 84484; 85025; 85610; 85730; 87804; 93005; J7620

== ENCOUNTER 2017-05-16 14:42 | Emergency (ER) | payer MEDICARE, BC ==
[2017-05-16 15:12] LABS: #Basophils 0.1 thou/uL (0.0-0.2); #Lymphocytes 1.6 thou/uL (1.20-3.40); #Monocytes 0.5 thou/uL (0.11-0.59); %Basophils 0.9 % (0.0-1.0); %Eosinophils 0.6 % (0.0-10.0); %Lymphocytes 19.2 % (21.0-51.0); %Monocytes 5.8 % (0.0-10.0); %Neutrophils 73.5 % (42.0-75.0); Hemoglobin 13.3 g/dL (12.0-16.0); Mean Corpuscular HGB CONC 32.8 g/dL (32.0-36.0); Mean Corpuscular Hemoglobin 30.3 pg (27.0-31.0); Mean Corpuscular Volume 92.4 fl (81.0-99.0); Mean Platelet Volume 9.2 fL (7.4-10.4); Platelet Count 231 thou/uL (130-400); RBC Distribution Width 12.7 % (11.5-14.5); Red Blood Cell (RBC) Count 4.39 mill/uL (4.20-5.40); White Blood Cell (WBC) Count 8.2 thou/uL (4.8-10.8)
[2017-05-16 15:24] LABS: Actual Bicarbonate (HCO3a) 21.1 mEq/L (22-26); Base Excess (BEa) -1.6 mEq/L (0 (+/-) 2.5); CO2 Tension 29.8 mmHg (35.0-45.0); Hematocrit-ABG 39.2 % (36.0-47.0); Hemoglobin (Hb) 12.6 g/dL (12.0-16.0); O2 Tension (PaO2) 78.8 mmHg (80.0-100.0); pH, Arterial 7.47 (7.35-7.45)
[2017-05-16 15:25] LABS: Analyzer IN Cardio ER; Calcium, Ionized 1.2 mmol/L (1.12-1.30); Puncture Site RRA
[2017-05-16 15:33] LABS: ALT (SGPT) Less than 7 U/L (8-55); AST (SGOT) 16 U/L (5-34); Albumin 4.1 g/dL (3.4-4.8); Alkaline Phosphatase 73 U/L (40-150); Anion Gap 16 mmol/L (10-20); BUN (Urea Nitrogen) 11 mg/dL (9.8-20.1); Bilirubin, Total 0.5 mg/dL (0.2-1.2); CK (CPK) 31 U/L (29-168); Calc. Creatinine Clearance 0 mL/min (70-130); Calcium 9.5 mg/dL (7.8-10.44); Carbon Dioxide 21 mmol/L (23-31); Chloride 104 mmol/L (98-107); Estimated GFR-MDRD 85; Globulin 2.6 g/dL (2.4-3.5); Glucose 125 mg/dL (83-110); Potassium 4.6 mmol/L (3.5-5.1); Protein, Total 6.7 g/dL (6.0-8.3); Sodium 136 mmol/L (136-145)
[2017-05-16 15:38] LABS: CKMB 1.2 ng/mL (0-6.6); Troponin I Less than 0.010 ng/mL (< 0.028)
[2017-05-16 15:49] LABS: Bilirubin Negative (Negative); Blood, Urine Negative (Negative); Clarity CLEAR (Clear); Glucose, Urine (Dipstick) Negative (Negative); Leukocyte Small (Negative); Nitrite Negative (Negative); Protein, Urine (Dipstick) Negative (Neg-Trace); Specific Gravity, Urine 1.007 (1.002-1.036); pH, Urine 7.5 (5.0-9.0)
[2017-05-16 15:50] LABS: Bacteria/HPF None Seen HPF (None Seen); Hyaline Casts/LPF 0-3 HYALINE CAST LPF (0-3 Hyaline); RBC/HPF 0-3 HPF (0-3); Squamous Epithelial 0-3 HPF (0-3); WBC/HPF 0-3 HPF (0-3)
--- NOTE | 2017-05-16 16:10 | RAD ---
UPRIGHT PORTABLE CHEST ONE VIEW 05/16/17 HISTORY: 86-year-old female with history of dyspnea and shortness of breath. COMPARISON: 03/06/17. Atherosclerosis and old granulomatous disease. Dorsal column stimulator leads overlie the lower thora cic spine. Small hiatal hernia. Minimal biapical pleural thickening. No confluent pneumonia, pleural effusion or other acute process. IMPRESSION: Old granulomatous disease. Minimal stable chronic changes. Hiatal hernia. No significant new process. POS: [facility]
[2017-05-16] MEDS ORDERED: Furosemide 20 MG/2 ML VIAL ONE (18:35)
--- NOTE | 2017-06-08 20:41 | EKG ---
Test Reason : SHORTNESS OF BREATH Blood Pressure : / mmHG Vent. Rate : 102 BPM Atrial Rate : 044 BPM P-R Int : 000 ms QRS Dur : 064 ms QT Int : 356 ms P-R-T Axes : 000 001 -50 degrees QTc Int : 463 ms Atrial fibrillation with rapid ventricular response Septal infarct , age undetermined Abnormal ECG Confirmed by DREAD RAE ([id number]), health editor CARRIE MARKS ([id number]) on 06/08/2017 8:41:06 PM Referred By: Confirmed By:DREAD RAE
== END 2017-05-16 18:14 | disposition home or self-care (01) ==
LOC: ERS 14:42
DX: R06.00 Dyspnea, unspecified (principal); F32.9 Major depressive disorder, single episode, unspecified; Z79.82 Long term (current) use of aspirin; Z79.899 Other long term (current) drug therapy; Z79.01 Long term (current) use of anticoagulants
CPT/HCPCS: 71045; 80053; 81003; 81015; 82553; 82805; 83880; 84484; 85025; 93005; 94760; 96374; J1940

== ENCOUNTER 2017-06-12 14:00 | Outpatient (CLI) | payer MEDICARE, BC ==
[~2017-06-12 14:00] MED LIST: ISOVUE-370 76%-LOCM 1 ML ONE
[2017-06-12 15:13] LABS: Estimated GFR-MDRD - POC Greater than 90
--- NOTE | 2017-06-12 15:52 | CT ---
CTA CHEST WITH CONTRAST: Date: 06/12/17 COMPARISON: CT abdomen/pelvis 08/05/09. HISTORY: Shortness of breath for weeks and atrial fibrillation. TECHNIQUE: Multiple contiguous axial images were obtained in a CTA of the chest with contrast per pulmonary embo lism protocol. 3D oblique MIP reformats and direct coronal reformats were performed. FINDINGS: The pulmonary arteries are well opacified without filling defects to suggest pulmonary emboli. The he art is normal in size without focal cardiac abnormality. No hilar or mediastinal lymphadenopathy seen . There are calcified hilar and mediastinal lymph nodes. There is a moderate hiatal hernia. A calcified granuloma is seen in the lingula. No suspicious pulmonary nodule is seen. No pneumothorax or pleural effusions are seen. There is a 5.5 cm cyst in the left kidney. There are calcifications in the left kidney which were not seen on the prior CT and may represent either vascular calcifications or nonobstructing renal calcif ications measuring up to 4 mm in size. The other visualized subdiaphragmatic structures are unremark able. The chest wall soft tissues are unremarkable. IMPRESSION: 1. No evidence of pulmonary thromboembolism. 2. Hiatal hernia. 3. Left renal cyst. 4. Calcifications in the left kidney may represent vascular calcifications or nonobstructing lef t renal calcifications. POS: [facility]
== END 2017-06-12 14:01 | disposition home or self-care (01) ==
LOC: CT 14:00
PROVIDERS: ATTEND Internal Medicine Pulmonary Disease
DX: I26.99 Other pulmonary embolism without acute cor pulmonale (principal); K44.9 Diaphragmatic hernia without obstruction or gangrene; N28.1 Cyst of kidney, acquired; N28.89 Other specified disorders of kidney and ureter
CPT/HCPCS: 71275; 82565

== ENCOUNTER 2017-10-31 10:42 | Observation (INO) | payer MEDICARE, BC ==
[2017-10-31 12:32] LABS: Bilirubin Negative (Negative); Blood, Urine Trace (Negative); Clarity CLEAR (Clear); Glucose, Urine (Dipstick) Negative (Negative); Leukocyte Negative (Negative); Nitrite Negative (Negative); Protein, Urine (Dipstick) Negative (Neg-Trace); Specific Gravity, Urine 1.004 (1.002-1.036); Urobilinogen 0.2 mg/dL (0.2-1.0)
[2017-10-31 12:34] LABS: Bacteria/HPF None Seen HPF (None Seen); Hyaline Casts/LPF 0-3 HYALINE CAST LPF (0-3 Hyaline); RBC/HPF 0-3 HPF (0-3); Squamous Epithelial 0-3 HPF (0-3); WBC/HPF 0-3 HPF (0-3)
[2017-10-31 12:44] LABS: ALT (SGPT) 7 U/L (8-55); AST (SGOT) 23 U/L (5-34); Albumin 3.5 g/dL (3.4-4.8); Alkaline Phosphatase 95 U/L (40-150); Anion Gap 13 mmol/L (10-20); BUN (Urea Nitrogen) 8 mg/dL (9.8-20.1); Bilirubin, Total 0.6 mg/dL (0.2-1.2); Calc. Creatinine Clearance 0 mL/min (70-130); Calcium 8.7 mg/dL (7.8-10.44); Carbon Dioxide 19 mmol/L (23-31); Chloride 103 mmol/L (98-107); Estimated GFR-MDRD 77; Globulin 3.4 g/dL (2.4-3.5); Glucose 120 mg/dL (83-110); Lipase Less than 4 U/L (8-78); Potassium 5.3 mmol/L (3.5-5.1); Protein, Total 6.9 g/dL (6.0-8.3); Sodium 130 mmol/L (136-145)
--- NOTE | 2017-10-31 12:52 | RAD ---
PORTABLE CHEST ONE VIEW: Date: 10-30-17 Time: 12:29 p.m. History: Weakness. Dyspnea. FINDINGS: Comparison is made with exam of 05-16-17. The heart size is normal. The aorta is tortuous. There is evidence of old granulomatous disease. The lungs are well expanded without focal areas of consolidation, pneumothoraces, or pleural effusions. IMPRESSION: No acute process. POS: [facility]
[2017-10-31] MEDS ORDERED: Acetaminophen 500 MG TAB ONE (13:22)
[2017-10-31 13:49] LABS: Troponin I Less than 0.010 ng/mL (< 0.028)
--- NOTE | 2017-10-31 15:06 | HP ---
DATE OF ADMISSION: 10/31/2017 PRIMARY CARE PHYSICIAN: Dr. Alissa Murdock. REASON FOR ADMISSION: Chest discomfort, generalized weakness, hyponatremia. HISTORY OF PRESENT ILLNESS: An 87-year-old female who is a very poor historian who came to emergency room with multiple complaints. She was reporting to emergency room physician about chest discomfort , but she denied chest discomfort to me. She was reporting to me that she was having epigastric disc omfort as well as chronic low back pain. The patient took her morphine and methocarbamol before comi ng to the emergency room. The patient was also having weakness and she denies any fall. She denies any palpitations. She denies any shortness of breath. She denies any constipation, diarrhea, melena or hematochezia. The patient is taking all her previous medication. The patient reports that she i s supposed to see Dr. John and they are going to order an echocardiography, but today she was not feeling good and that is why family member brought her to emergency room for evaluation. The patien t reports that her appetite is reduced and she is feeling on and off shortness of breath. She denies any every day basis orthopnea, PND or pedal edema. She denies any fever or chills. She denies any UTI symptoms. She denies any constipation, diarrhea, melena or hematochezia. She has a history of a trial fibrillation and she is on chronic anticoagulation with Xarelto. When I saw this patient in the emergency room, she reported that she is ready to go home, but her fam sanjuanita member wanted to keep her in hospital to rule out cardiac etiology. ALLERGIES: No known drug allergy. CURRENT HOME MEDICATIONS: Morphine sulfate 30 mg q.8 hourly p.r.n., aspirin 325 mg p.o. daily, Lasix 40 mg daily, methocarbamol 750 mg daily, omeprazole 20 mg daily, Reglan 5 mg daily, gabapentin 300 m g p.o. daily, Xarelto 20 mg p.o. daily. REVIEW OF SYSTEMS: The following complete review of systems was negative, unless otherwise mentioned in the HPI or below: Constitutional: Weight loss or gain, ability to conduct usual activities. Sk in: Rash, itching. Eyes: Double vision, pain. ENT/Mouth: Nose bleeding, neck stiffness, pain, te nderness. Cardiovascular: Palpitations, dyspnea on exertion, orthopnea. Respiratory: Shortness of breath, wheezing, cough, hemoptysis, fever or night sweats. Gastrointestinal: Poor appetite, abdom inal pain, heartburn, nausea, vomiting, constipation, or diarrhea. Genitourinary: Urgency, frequenc y, dysuria, nocturia. Musculoskeletal: Pain, swelling. Neurologic/Psychiatric: Anxiety, depressio n. Allergy/Immunologic: Skin rash, bleeding tendency. Please see my HPI for pertinent positive and negative. All other review of systems reviewed and negative except as mentioned in the HPI. PAST MEDICAL HISTORY: Chronic low back pain, paroxysmal atrial fibrillation, gastroesophageal reflux disease, moderate mitral regurgitation, moderate tricuspid regurgitation, history of carotid stenosi s on the right side. PAST SURGICAL HISTORY: Back surgery x6, right foot surgery, bilateral hand surgery due to rheumatoid arthritis, left and right ankle surgery, left shoulder surgery x2, the patient has screws and plate to the right ankle, appendicectomy, hysterectomy, tonsillectomy, internal spinal cord stimulator. PAST PSYCHIATRIC HISTORY: Anxiety and depression. SOCIAL HISTORY: The patient lives at home. She is able to walk with a walker. No history of tobacc o, alcohol or illicit drug abuse. FAMILY HISTORY: Mother of congestive heart failure in her 80s. Father of congestive heart failure in his 80s. Her had PA and Crohn's disease. EMERGENCY ROOM COURSE: The patient is given aspirin 162 mg, Tylenol 1 g and IV fluid. PHYSICAL EXAMINATION: VITAL SIGNS: On arrival, blood pressure 177/95, pulse 92, irregular, respiratory rate 18, temperatur e 98.0, saturation 99% on room air, weight 68 kilograms. GENERAL: The patient is currently alert, awake, in no obvious acute distress. HEAD: Normocephalic, atraumatic. EYES: Pupils round, reactive to light. Extraocular muscle intact. ENT: Poor dentition. Oropharynx within normal limits. Moist mucous membranes. No oral lesion, no pharyngeal erythema, no exudate. NECK: Supple, no JVD, no thyromegaly, no carotid bruit. LUNGS: Air entry reduced both basally. No wheeze, no rhonchi. CARDIAC: S1, S2 irregular. Systolic murmur present at lower left sternal border as well as at apex. ABDOMEN: Soft, bowel sounds present, nontender, nondistended. No organomegaly, no mass, no suprapub ic tenderness. BACK: Unremarkable. No CVA tenderness. EXTREMITIES: Upper extremities, passive movement of all joints are normal. Lower extremities, no ed kathleen. Good distal pulsation. No calf tenderness. SKIN: No skin rash. HEMATOLOGICAL: No lymphadenopathy. PSYCHIATRIC: Normal affect. NEUROLOGIC: The patient is currently alert, awake, in no obvious acute distress. SIGNIFICANT LABORATORY DATA: EKG showing atrial fibrillation with controlled ventricular response, n onspecific ST-T changes. Chest x-ray based on my review, no acute cardiopulmonary process. BMP, sod ium 130, potassium 5.3, chloride 103, carbon dioxide 19, anion gap 13, BUN 8, creatinine 0.72, glucos e 120, calcium 8.7, lactic acid 1.4. LFT, AST 23, ALT 7, alkaline phosphatase 95, albumin 3.5. BNP 141.9. CK-MB 2.0. Troponin I less than 0.010. TSH 1.47. IMAGING: CBC is not ordered. We are going to order CBC and review later. ASSESSMENT AND PLAN: 1. Chest discomfort, rule out acute coronary syndrome. We will do serial cardiac enzymes x3. We wi ll obtain echocardiography. Currently, the patient does not have any chest pain, probably related wi th underlying atrial fibrillation. 2. Atrial fibrillation with controlled ventricular response. The patient's rate is under control. We will continue with metoprolol tartrate 50 mg p.o. b.i.d. and anticoagulation with Xarelto 20 mg p. o. daily. 3. Hyponatremia and hyperkalemia. The patient is given IV fluid in the emergency room, most likely related with her reduced protein intake. We will repeat BMP tomorrow. The patient is already given IV fluid in the emergency room. 4. History of moderate mitral regurgitation and moderate tricuspid regurgitation. We will obtain ec hocardiography and verify current status. The patient currently appears euvolemic without any eviden ce of congestive heart failure. 5. Right carotid stenosis based on 2016 study. The patient does have moderate carotid sten osis on the right side. She needs to follow up with the cardiovascular surgeon as an outpatient rica osman. 6. Gastroesophageal reflux disease. We will continue Protonix 40 mg p.o. daily. 7. Chronic low back pain. We will continue morphine sulfate 30 mg q.8 hourly. 8. Chronic anticoagulation. We will continue Xarelto 20 mg p.o. daily. 9. Deep venous thrombosis prophylaxis not needed because we are expecting discharge in 24 hours. 10. Gastrointestinal prophylaxis, Protonix 40 mg p.o. daily. 11. Generalized weakness. We will evaluate with physical therapy while in hospital. Disposition plan based on clinical course, likely within 24 hours. Plan of care discussed with the p yas's family member at bedside in the emergency room. CODE STATUS: This patient is full code. The patient's is surrogate decision maker.
[2017-10-31 15:10] LABS: #Eosinphils 0.1 thou/uL (0.0-0.7); #Lymphocytes 1.9 thou/uL (1.20-3.40); #Monocytes 0.5 thou/uL (0.11-0.59); #Neutrophils 6.2 thou/uL (1.40-6.50); %Basophils 0.5 % (0.0-1.0); %Eosinophils 0.6 % (0.0-10.0); %Lymphocytes 22.2 % (21.0-51.0); %Monocytes 5.2 % (0.0-10.0); %Neutrophils 71.5 % (42.0-75.0); Hemoglobin 13.3 g/dL (12.0-16.0); Mean Corpuscular HGB CONC 33.3 g/dL (32.0-36.0); Mean Corpuscular Hemoglobin 29.1 pg (27.0-31.0); Mean Corpuscular Volume 87.4 fL (78.0-98.0); Mean Platelet Volume 9.6 fL (7.4-10.4); Platelet Count 226 thou/uL (130-400); RBC Distribution Width 12.7 % (11.5-14.5); Red Blood Cell (RBC) Count 4.56 mill/uL (4.20-5.40); White Blood Cell (WBC) Count 8.6 thou/uL (4.8-10.8)
[2017-10-31] MEDS ORDERED: Loperamide HCl 2 MG CAP PO PRN (15:48)
[2017-10-31] MEDS ORDERED: Chloraseptic Spray 180 ml Bottle PO PRN (15:48)
[2017-10-31] MEDS ORDERED: Eucerin (Mineral Oil/Petrolatum,White) 30 gm Jar TOP PRN (15:48)
[2017-10-31] MEDS ORDERED: Ondansetron ODT 4 MG TAB PO PRN (15:48)
[2017-10-31] MEDS ORDERED: HYDROcodone/Acetaminophen 10/325 mg Tablet PO PRN (15:48)
[2017-10-31] MEDS ORDERED: Acetaminophen 325 MG TAB PO PRN (15:48)
[2017-10-31] MEDS ORDERED: Milk Of Magnesia 30 ML UDCUP PO PRN (15:48)
[2017-10-31] MEDS ORDERED: Sodium Chloride 0.65% Nasal 44 ML BOT EA NARE PRN (15:48)
[2017-10-31] MEDS ORDERED: Loratadine 10 MG TAB PO PRN (15:48)
[2017-10-31] MEDS ORDERED: Zolpidem Tartrate 5 MG TAB PO PRN (15:48)
[2017-10-31] MEDS ORDERED: Artificial Tear Sol 15 ML BOT EA EYE PRN (15:48)
[2017-10-31] MEDS ORDERED: Senokot 8.6 MG TAB PO PRN (15:48)
[2017-10-31] MEDS ORDERED: Ondansetron HCl/PF 4 MG/2 ML Vial IVP PRN (15:48)
[2017-10-31] MEDS ORDERED: Bisacodyl 10 MG SUPP PR PRN (15:48)
[2017-10-31] MEDS ORDERED: hydrALAZINE 20 MG/ML VIAL SLOW IVP PRN (15:48)
[2017-10-31] MEDS ORDERED: Nitroglycerin 0.4 MG TAB (25 Tab Bottle) SL PRN (15:48)
[2017-10-31] MEDS ORDERED: Diabetic Tussin 200 MG/10 ML UDCUP PO PRN (15:48)
[2017-10-31] MEDS ORDERED: Mag-Al 1200 mg/1200 mg/30 ML UDCUP PO PRN (15:48)
[2017-10-31 16:20] VITALS: BMI 23.5
[2017-10-31 17:42] LABS: Troponin I Less than 0.010 ng/mL (< 0.028)
[2017-10-31] MEDS ORDERED: Lorazepam 1 MG TAB PO SCH (17:45)
[2017-10-31 19:59] LABS: Troponin I Less than 0.010 ng/mL (< 0.028)
[2017-10-31] MEDS: Morphine ER 30 MG TAB PO SCH (20:53)
[2017-10-31] MEDS ORDERED: Gabapentin 300 MG CAP PO SCH (23:45)
[2017-11-01 01:52] LABS: Platelet Count 211 thou/uL (130-400)
[2017-11-01 02:03] LABS: Calc. Creatinine Clearance 70 mL/min (70-130); Estimated GFR-MDRD 88
[2017-11-01] MEDS ORDERED: Rivaroxaban 10 MG TAB PO SCH (06:00)
[2017-11-01 06:08] LABS: #Basophils 0.1 thou/uL (0.0-0.2); #Eosinphils 0.1 thou/uL (0.0-0.7); #Lymphocytes 2.3 thou/uL (1.20-3.40); #Monocytes 0.6 thou/uL (0.11-0.59); #Neutrophils 3.7 thou/uL (1.40-6.50); %Basophils 0.8 % (0.0-1.0); %Eosinophils 1.8 % (0.0-10.0); %Lymphocytes 34.2 % (21.0-51.0); %Monocytes 8.6 % (0.0-10.0); %Neutrophils 54.7 % (42.0-75.0); Mean Corpuscular HGB CONC 34.6 g/dL (32.0-36.0); Mean Corpuscular Volume 86.7 fL (78.0-98.0); Mean Platelet Volume 8.4 fL (7.4-10.4); RBC Distribution Width 12.7 % (11.5-14.5); Red Blood Cell (RBC) Count 3.98 mill/uL (4.20-5.40); White Blood Cell (WBC) Count 6.9 thou/uL (4.8-10.8)
[2017-11-01 06:27] LABS: Anion Gap 11 mmol/L (10-20); BUN (Urea Nitrogen) 6 mg/dL (9.8-20.1); Calcium 8.5 mg/dL (7.8-10.44); Carbon Dioxide 21 mmol/L (23-31); Chloride 107 mmol/L (98-107); Cholesterol 229 mg/dl (< 200 Desired); Glucose 98 mg/dL (83-110); HDL Cholesterol 57 mg/dL (>60 Neg Risk); LDL Cholesterol, Calculated 159 mg/dL; Potassium 3.2 mmol/L (3.5-5.1); Sodium 136 mmol/L (136-145); Triglycerides 67 mg/dL (Less than 150)
[2017-11-01] MEDS ORDERED: Furosemide 40 MG TAB PO SCH (07:30)
[2017-11-01] MEDS: Morphine ER 30 MG TAB PO SCH (08:45)
[2017-11-01] MEDS ORDERED: Methocarbamol 500 MG TAB PO SCH (09:00)
[2017-11-01 09:55] VITALS: TEMP 97.9
--- NOTE | 2017-11-01 10:31 | DIS ---
DATE OF ADMISSION: 10/31/2017 DATE OF DISCHARGE: 11/01/2017 PRIMARY CARE PHYSICIAN: Dr. Alissa Murdock. DISCHARGE DISPOSITION: Home. PRIMARY DISCHARGE DIAGNOSES: Chest pain, ruled out acute coronary syndrome; hyperkalemia, resolved; dyslipidemia; hyponatremia, corrected; generalized weakness, resolved. SECONDARY DISCHARGE DIAGNOSES: Right carotid stenosis, chronic low back pain, gastroesophageal reflu x disease, moderate mitral regurgitation and moderate tricuspid regurgitation. PRIMARY PROCEDURE/OPERATION: None. RADIOLOGICAL INVESTIGATION: Chest x-ray was normal. SIGNIFICANT LABORATORY DATA: WBC is 6.9, hemoglobin 12.0, platelet 211. Sodium 136, potassium 3.2, BUN 6, creatinine 0.64, calcium 8.5. Cardiac enzymes negative x3. Lactic acid 1.4, TSH 1.47, LDL 15 9. Urinalysis unremarkable. DISCHARGE MEDICATIONS: Morphine sulfate extended release 30 mg q.8 hourly p.r.n., aspirin 325 mg p.o . daily, Lasix 40 mg p.o. daily, gabapentin 300 mg p.o. at bedtime, Reglan 5 mg p.o. daily p.r.n., om eprazole 20 mg p.o. daily, Xarelto 20 mg p.o. daily, metoprolol 50 mg twice daily, Lipitor 20 mg p.o. at bedtime. CONTRAINDICATIONS: None. CODE STATUS: FULL CODE. INPATIENT CONSULTANTS: None. ALLERGIES: No known drug allergy. DISCHARGE PLAN: Post hospital, patient will follow up with primary care physician. Patient already has appointment with Dr. John as an outpatient basis. HOSPITAL COURSE: An 87-year-old female who was admitted by me. Please see my HPI for further detail s. The patient expressed complaint of chest pain to ER physician, but she declined that complaint to me when we took history from her. She was feeling generalized weak. She was having multiple vague complaints. She was evaluated in the emergency room and her EKG showed atrial fibrillation. She has history of atrial fibrillation and she was on metoprolol as well as with Xarelto for chronic anticoa gulation, which we continued while in hospital. During this admission, routine blood tests showed in itially hyponatremia, hyperkalemia which was resolved the next day. Patient was observed on telemetr y floor and she remained in atrial fibrillation, but rate was under control. Her LDL was significant ly elevated and that is why we started Lipitor therapy. Rest of medications will continue as per pre vious. She will follow up with primary care physician as well as primary demonstrator [employer]. During this admission, we did echocardiography, but official report is pending. The patient is seen and examined at bedside today. PHYSICAL EXAMINATION: VITAL SIGNS: Currently, temperature 97.9, pulse 84 irregular, respiratory rate 16, saturation 98% on room air, blood pressure 136/69, weight 154 pounds. GENERAL: The patient is currently alert, awake, no obvious acute distress. HEAD: Normocephalic, atraumatic. EYES: Pupils round, reactive to light. Extraocular muscle intact. ENT: Oropharynx within normal limits. LUNGS: Clear to auscultation without any rhonchi or rales. CARDIAC: S1, S2 irregular. No systolic murmur noted at apex and left parasternal border. No gallop , no rub. ABDOMEN: Soft and benign without any tenderness. EXTREMITIES: No edema. NEUROLOGIC: Nonfocal examination. Overall, patient is medically stable for discharge today.
--- NOTE | 2017-11-01 11:10 | PDOC.PN ---
- Subjective Encounter Start Date: 11/01/17 Encounter Start Time: 09:00 -: old records requested/rev Patient seen and examined. No new complaints. No overnight events - Objective Resuscitation Status: Resuscitation Status FULL:Full Resuscitation MAR Reviewed: Yes Vital Signs & Weight: Vital Signs (12 hours) Temp Pulse Resp BP BP Pulse Ox 11/01/17 07:30 97.9 F 84 16 136/69 98 11/01/17 04:51 97.7 F 81 14 118/67 98 11/01/17 00:08 103 H 14 140/83 97 Weight Weight 154 lb 14.4 oz I&O: 10/31/17 11/01/17 11/02/17 06:59 06:59 06:59 Intake Total 50 Output Total 400 Balance -350 Result Diagrams: 11/01/17 01:38 11/01/17 01:38 Radiology Reviewed by me: Yes EKG Reviewed by me: Yes Phys Exam - Physical Examination Constitutional: NAD HEENT: PERRLA, moist MMs, sclera anicteric Neck: no JVD, supple Respiratory: no wheezing, no rales, no rhonchi Cardiovascular: irregular sm+ Gastrointestinal: soft, non-tender, no distention, positive bowel sounds Musculoskeletal: no edema, pulses present Neurological: non-focal, normal sensation, moves all 4 limbs Psychiatric: normal affect, A&O x 3 Skin: no rash, normal turgor Dx/Plan (1) Chest pain Code(s): R07.9 - CHEST PAIN, UNSPECIFIED Status: Resolved (2) Hyperkalemia Code(s): E87.5 - HYPERKALEMIA Status: Resolved (3) Hyponatremia Code(s): E87.1 - HYPO-OSMOLALITY AND HYPONATREMIA Status: Resolved (4) Weakness generalized Code(s): R53.1 - WEAKNESS Status: Resolved (5) Carotid stenosis, right Code(s): I65.21 - OCCLUSION AND STENOSIS OF RIGHT CAROTID ARTERY Status: Chronic (6) Chronic low back pain Code(s): M54.5 - LOW BACK PAIN; G89.29 - OTHER CHRONIC PAIN Status: Chronic (7) GERD (gastroesophageal reflux disease) Code(s): K21.9 - GASTRO-ESOPHAGEAL REFLUX DISEASE WITHOUT ESOPHAGITIS Status: Chronic (8) Moderate mitral regurgitation Code(s): I34.0 - NONRHEUMATIC MITRAL (VALVE) INSUFFICIENCY Status: Chronic (9) Moderate tricuspid regurgitation Code(s): I07.1 - RHEUMATIC TRICUSPID INSUFFICIENCY Status: Chronic (10) Atrial fibrillation Code(s): I48.91 - UNSPECIFIED ATRIAL FIBRILLATION Status: Acute Qualifiers: Atrial fibrillation type: chronic Qualified Code(s): I48.2 - Chronic atrial fibrillation - Plan cont current plan of care * continue metoprolol and xarelto * outpt follow up with cardiology * add lipitor for dyslipidemia * medication reviewed as below * symptomatic treatment. * echo pending * acs ruled out Review of Systems - Review of Systems Eyes: negative: Pain, Vision Change, Conjunctivae Inflammation, Eyelid Inflammation, Redness, Other ENT: negative: Ear Pain, Ear Discharge, Nose Pain, Nose Discharge, Nose Congestion, Mouth Pain, Mouth Swelling, Throat Pain, Throat Swelling, Other Respiratory: negative: Cough, Dry, Shortness of Breath, Hemoptysis, SOB with Excertion, Pleuritic Pain, Sputum, Wheezing Cardiovascular: negative: chest pain, palpitations, orthopnea, paroxysmal nocturnal dyspnea, edema, light headedness, other Gastrointestinal: negative: Nausea, Vomiting, Abdominal Pain, Diarrhea, Constipation, Melena, Hematochezia, Other Genitourinary: negative: Dysuria, Frequency, Incontinence, Hematuria, Retention , Other Musculoskeletal: negative: Neck Pain, Shoulder Pain, Arm Pain, Back Pain, Hand Pain, Leg Pain, Foot Pain, Other Skin: negative: Rash, Lesions, Yared, Bruising, Other - Medications/Allergies Allergies/Adverse Reactions: Allergies Allergy/AdvReac Type Severity Reaction Status Date / Time No Known Drug Allergies Allergy Verified 10/31/17 16:00 Medications: Current Medications Acetaminophen (Tylenol) 650 mg PO Q4H PRN PRN Reason: Headache/Fever or Pain Hydrocodone Bitart/Acetaminophen ([place] 10/325) 1 tab PO Q4H PRN PRN Reason: Moderate Pain (4-6) Last Admin: 11/01/17 03:09 Dose: 1 tab Al Hydroxide/Mg Hydroxide (Maalox) 30 ml PO Q6H PRN PRN Reason: Heartburn or Indigestion Artificial Tears (Tears Renewed 15ml Bottle) 0 drop EA EYE PRN PRN PRN Reason: Dry Eyes Aspirin (Aspirin Chewable) 81 mg PO DAILY [facility] Last Admin: 11/01/17 08:43 Dose: 81 mg Atorvastatin Calcium (Lipitor) 20 mg PO HS [facility] Bisacodyl (Dulcolax) 10 mg LA Q24H PRN PRN Reason: Constipation Furosemide (Lasix) 40 mg PO DAILY[facility] Last Admin: 11/01/17 08:43 Dose: 40 mg Gabapentin (Neurontin) 300 mg PO HS [facility] Guaifenesin (Robitussin Sf) 200 mg PO Q4H PRN PRN Reason: Cough Hydralazine HCl (Apresoline) 10 mg SLOW IVP Q4H PRN PRN Reason: Systolic BP > 180 Loperamide HCl (Imodium) 2 mg PO PRN PRN PRN Reason: Diarrhea/Loose Stools Loratadine (Claritin) 10 mg PO DAILYPRN PRN PRN Reason: Sinus Symptoms Magnesium Hydroxide (Milk Of Magnesium) 30 ml PO DAILYPRN PRN PRN Reason: Constipation Methocarbamol (Robaxin) 750 mg PO DAILY [facility] Last Admin: 11/01/17 08:44 Dose: 750 mg Mineral Oil/White Petrolatum (Eucerin Cream) 0 gm TOP BIDPRN PRN PRN Reason: Dry Skin Morphine Sulfate (Ms Contin) 30 mg PO Q12HR [facility] Last Admin: 11/01/17 08:45 Dose: 30 mg Nitroglycerin (Nitrostat) 0.4 mg SL Q5MIN PRN PRN Reason: Chest Pain Ondansetron HCl (Zofran Odt) 4 mg PO Q6H PRN PRN Reason: Nausea/Vomiting Ondansetron HCl (Zofran) 4 mg IVP Q6H PRN PRN Reason: Nausea/Vomiting Pantoprazole Sodium (Protonix) 40 mg PO DAILY [facility] Last Admin: 11/01/17 08:45 Dose: 40 mg Phenol (Chloraseptic [place] 180 Ml Bot) 0 ml PO PRN PRN PRN Reason: Sore Throat Rivaroxaban (Xarelto) 20 mg PO 0600 [facility] Last Admin: 11/01/17 05:52 Dose: 20 mg Senna (Senokot) 2 tab PO HSPRN PRN PRN Reason: Constipation Sodium Chloride ([place] Nasal [place] 0.65%) 0 ml EA NARE QIDPRN PRN PRN Reason: Nasal Congestion Sodium Chloride (Flush - Normal Saline) 10 ml IVF Q12HR [facility] Last Admin: 11/01/17 08:46 Dose: 10 ml Sodium Chloride (Flush - Normal Saline) 10 ml IVF PRN PRN PRN Reason: Saline Flush Zolpidem Tartrate (Ambien) 5 mg PO HSPRN PRN PRN Reason: Insomnia
[2017-11-01 12:09] VITALS: BP 138/69
[2017-11-01] MEDS ORDERED: Gabapentin 300 MG CAP PO SCH (21:00)
[2017-11-01] MEDS ORDERED: Atorvastatin Calcium 20 MG TAB PO SCH (21:00)
--- NOTE | 2017-11-02 20:22 | EKG ---
Test Reason : ER Blood Pressure : / mmHG Vent. Rate : 095 BPM Atrial Rate : 090 BPM P-R Int : 000 ms QRS Dur : 076 ms QT Int : 340 ms P-R-T Axes : 000 -03 257 degrees QTc Int : 427 ms Atrial fibrillation with premature ventricular or aberrantly conducted complexes Low voltage QRS Nonspecific ST and T wave abnormality Abnormal ECG Confirmed by SALOME RIDLEY M.D. ([id number]), video editor CARRIE MARKS ([id number]) on 11/02/2017 8:21:50 PM Referred By: Confirmed By:SALOME RIDLEY M.D.
== END 2017-11-01 12:59 | disposition home or self-care (01) ==
LOC: ERS 10:42 → 2NO 13:31
PROVIDERS: ADMIT Internal Medicine; ATTEND Internal Medicine
DX: R07.89 Other chest pain (principal); G89.29 Other chronic pain; M54.5 Low back pain; K21.9 Gastro-esophageal reflux disease without esophagitis; F41.8 Other specified anxiety disorders; E87.1 Hypo-osmolality and hyponatremia; E87.5 Hyperkalemia; I65.21 Occlusion and stenosis of right carotid artery; I34.0 Nonrheumatic mitral (valve) insufficiency; I07.1 Rheumatic tricuspid insufficiency; I48.2 Chronic atrial fibrillation; Z79.01 Long term (current) use of anticoagulants; Z79.82 Long term (current) use of aspirin; Z79.891 Long term (current) use of opiate analgesic; Z79.899 Other long term (current) drug therapy
CPT/HCPCS: 51701; 71045; 80048; 80061; 82553; 83605; 83690; 83880; 84484 ×2; 85025; 93005; 93306; 96360; 97139; 99285; G0378 ×2; G8978; G8979; G8980; 36415; 36416; 80053; 81003; 81015; 84443; A4216; A4353

== ENCOUNTER 2018-01-24 07:32 | Emergency (ER) | payer MEDICARE, BC ==
[2018-01-24 08:39] LABS: #Lymphocytes 0.9 thou/uL (1.20-3.40); #Monocytes 1.7 thou/uL (0.11-0.59); #Neutrophils 11.8 thou/uL (1.40-6.50); %Basophils 0.3 % (0.0-1.0); %Eosinophils 0.2 % (0.0-10.0); %Lymphocytes 5.9 % (21.0-51.0); %Neutrophils 81.6 % (42.0-75.0); Hemoglobin 11.9 g/dL (12.0-16.0); Mean Corpuscular HGB CONC 32.2 g/dL (32.0-36.0); Mean Corpuscular Hemoglobin 28.2 pg (27.0-31.0); Mean Corpuscular Volume 87.4 fL (78.0-98.0); Mean Platelet Volume 9.2 fL (7.4-10.4); Platelet Count 232 thou/uL (130-400); RBC Distribution Width 12.8 % (11.5-14.5); Red Blood Cell (RBC) Count 4.24 mill/uL (4.20-5.40); White Blood Cell (WBC) Count 14.5 thou/uL (4.8-10.8)
[2018-01-24 09:00] LABS: ALT (SGPT) 8 U/L (8-55); AST (SGOT) 14 U/L (5-34); Albumin 3.3 g/dL (3.4-4.8); Alkaline Phosphatase 113 U/L (40-150); Anion Gap 13 mmol/L (10-20); BUN (Urea Nitrogen) 9 mg/dL (9.8-20.1); Bilirubin, Total 1.3 mg/dL (0.2-1.2); Calc. Creatinine Clearance 0 mL/min (70-130); Calcium 8.6 mg/dL (7.8-10.44); Carbon Dioxide 26 mmol/L (23-31); Chloride 97 mmol/L (98-107); Estimated GFR-MDRD 79; Globulin 2.7 g/dL (2.4-3.5); Glucose 156 mg/dL (83-110); Potassium 3.9 mmol/L (3.5-5.1); Sodium 132 mmol/L (136-145)
[2018-01-24 09:06] LABS: Bilirubin Negative (Negative); Blood, Urine Negative (Negative); Clarity CLOUDY (Clear); Glucose, Urine (Dipstick) Negative (Negative); Leukocyte Negative (Negative); Nitrite Negative (Negative); Protein, Urine (Dipstick) Negative (Neg-Trace); Specific Gravity, Urine 1.012 (1.002-1.036)
--- NOTE | 2018-01-24 09:52 | RAD ---
FRONTAL VIEW CHEST: COMPARISON: 10/31/2017. INDICATION: Fall. FINDINGS: There is accentuation of the cardiomediastinal silhouette. Minimal patchy densities are seen at each lung base without lobar consolidation, significant effusion, or discrete pneumothorax. Stable calci fic density overlies the mediastinum. Subtle contour deformity is seen posterolaterally involving th e left 7th rib, age indeterminate. IMPRESSION: Subtle contour deformity of the left 7th rib posterolaterally, age indeterminate. Recommend clinical correlation. Minimal bibasilar patchy densities could be on the basis of volume loss. POS: [facility]
== END 2018-01-24 15:38 ==
LOC: ERS 07:32
DX: T14.8XXA Other injury of unspecified body region, initial encounter (principal); R53.81 Other malaise; Z74.2 Need for assistance at home and no other household member able to render care; Z79.899 Other long term (current) drug therapy; Z79.01 Long term (current) use of anticoagulants; Z79.82 Long term (current) use of aspirin; W19.XXXA Unspecified fall, initial encounter
CPT/HCPCS: 36415; 51701; 71045; 80053; 81003; 85025; 93005; A4353

== ENCOUNTER 2018-02-10 10:10 | Inpatient (IN) | payer MEDICARE, BC ==
[2018-02-10 10:59] LABS: Bilirubin Negative (Negative); Blood, Urine Negative (Negative); Glucose, Urine (Dipstick) Negative (Negative); Leukocyte Negative (Negative); Nitrite Negative (Negative); Protein, Urine (Dipstick) Negative (Neg-Trace); Specific Gravity, Urine 1.015 (1.005-1.030)
[2018-02-10 11:04] LABS: Clarity CLEAR (Clear)
[2018-02-10 11:35] LABS: #Neutrophils 9.4 thou/uL (1.40-6.50); %Basophils 0.2 % (0.0-1.0); %Eosinophils 0.4 % (0.0-10.0); %Lymphocytes 8.5 % (21.0-51.0); %Monocytes 8.6 % (0.0-10.0); %Neutrophils 82.3 % (42.0-75.0); Hemoglobin 9.5 g/dL (12.0-16.0); Mean Corpuscular HGB CONC 31.2 g/dL (32.0-36.0); Mean Corpuscular Hemoglobin 27.3 pg (27.0-31.0); Mean Corpuscular Volume 87.7 fL (78.0-98.0); Mean Platelet Volume 7.6 fL (7.4-10.4); Platelet Count 554 thou/uL (130-400); RBC Distribution Width 12.7 % (11.5-14.5); Red Blood Cell (RBC) Count 3.49 mill/uL (4.20-5.40); White Blood Cell (WBC) Count 11.4 thou/uL (4.8-10.8)
[2018-02-10] MEDS ORDERED: Diltiazem HCl 125 MG, Admixture Fee 1 EACH in Sodium Chloride 0.9% 100 ML IVPB SCH (11:45)
[2018-02-10 12:03] LABS: ALT (SGPT) Less than 7 U/L (8-55); AST (SGOT) 10 U/L (5-34); Albumin 2.9 g/dL (3.4-4.8); Alkaline Phosphatase 98 U/L (40-150); Anion Gap 14 mmol/L (10-20); BUN (Urea Nitrogen) 7 mg/dL (9.8-20.1); Bilirubin, Total 0.5 mg/dL (0.2-1.2); Calc. Creatinine Clearance 0 mL/min (70-130); Calcium 8.8 mg/dL (7.8-10.44); Carbon Dioxide 27 mmol/L (23-31); Chloride 95 mmol/L (98-107); Estimated GFR-MDRD Greater than 90; Glucose 144 mg/dL (83-110); Potassium 4.7 mmol/L (3.5-5.1); Protein, Total 5.9 g/dL (6.0-8.3); Sodium 131 mmol/L (136-145)
--- NOTE | 2018-02-10 12:04 | CT ---
NONCONTRAST HEAD CT: Date: 02/10/18 HISTORY: Weakness. Left facial droop. Symptoms x1 week. COMPARISON: 03/06/17. FINDINGS: No parenchymal hemorrhage. No extra-axial hematoma. No midline shift. Basilar cisterns are patent. Br ain volume, age-appropriate. Cortical kim-white matter differentiation preserved. Ventricles and sul ci are patent and symmetric. Subtle hypodensity involving the right posterior frontal cortex subcortical white matter. Better inte rrogation with MRI may be beneficial. Calvarium is intact. Adequate aeration of the sinuses and mastoid air cells. Cavernous carotid athero sclerosis. IMPRESSION: 1. No evidence of intraparenchymal hemorrhage. 2. Hypodensity in the right frontal subcortical white matter. Better interrogation with MRI is recom mended. POS: [facility]
--- NOTE | 2018-02-10 12:11 | RAD ---
FRONTAL RADIOGRAPH CHEST PORTABLE UPRIGHT: DATE: 02/10/2018. COMPARISON: 10/31/2017. HISTORY: Generalized weakness for over 1 week. FINDINGS: No pneumothorax seen. There is new hazy increased density in the left lung base suggesting partial c onsolidation/collapse of the left lower lobe and probable small left pleural effusion. There are dorsal column stimulating leads overlying the lower thoracic spine. Calcified nodes are noted in the left hilar region. IMPRESSION: New hazy pleural and parenchymal opacity in the left lung base. This may signify infectious pneumoni tis/aspiration. Followup imaging following treatment to document resolution advised. POS: [facility]
[2018-02-10 13:58] LABS: Troponin I Less than 0.010 ng/mL (< 0.028)
[2018-02-10] MEDS ORDERED: Diltiazem 125 MG in Sodium Chloride 0.9% 100 ML IVPB SCH (15:11)
[2018-02-10] MEDS ORDERED: Calcium Carbonate 500 MG ChewTAB PO PRN (15:11)
[2018-02-10] MEDS ORDERED: Bisacodyl 10 MG SUPP PR PRN (15:11)
[2018-02-10] MEDS ORDERED: Eucerin (Mineral Oil/Petrolatum,White) 30 gm Jar TOP PRN (15:11)
[2018-02-10] MEDS ORDERED: Loperamide HCl 2 MG CAP PO PRN (15:11)
[2018-02-10] MEDS ORDERED: Ondansetron ODT 4 MG TAB PO PRN (15:11)
[2018-02-10] MEDS ORDERED: Artificial Tear Sol 15 ML BOT EA EYE PRN (15:11)
[2018-02-10] MEDS ORDERED: Diabetic Tussin 200 MG/10 ML UDCUP PO PRN (15:11)
[2018-02-10] MEDS ORDERED: Senokot S 8.6-50 MG TAB PO PRN (15:11)
[2018-02-10] MEDS ORDERED: Cepastat Lozenges 1 LOZ PO PRN (15:11)
[2018-02-10] MEDS ORDERED: Acetaminophen 325 MG TAB PO PRN (15:11)
[2018-02-10] MEDS ORDERED: Zolpidem Tartrate 5 MG TAB PO PRN (15:11)
[2018-02-10] MEDS ORDERED: Sodium Chloride 0.65% Nasal 44 ML BOT EA NARE PRN (15:11)
[2018-02-10] MEDS ORDERED: Ondansetron PF 4 MG/2 ML Vial IVP PRN (15:11)
[2018-02-10] MEDS ORDERED: Labetalol HCl 100 MG/20 ML VIAL SLOW IVP PRN (15:11)
[2018-02-10 15:14] VITALS: BMI 23.6
--- NOTE | 2018-02-10 15:20 | HP ---
PRIMARY CARE PHYSICIAN: Alissa Murdock MD REASON FOR ADMISSION: Atrial fibrillation with RVR. HISTORY OF PRESENT ILLNESS: An 87-year-old female who recently came to emergency room on January 28, 2018 with generalized weakness. From the emergency room, the patient was discharged to inpatient rehab facility. Subsequently, the patient was discharged to home about a week ago. She stayed to rehab for one week. At home , she was feeling weak. She was feeling palpitation, mild dizziness and that is why the family member brought her to emergency room for evaluation. As per report, family member gives history that Dr. De La Fuente at rehab suspected stroke as the patient was having confusion and word-finding difficulty. The patient also had one episode of hematochezia, which she attributes due to hemorrhoid. She has underlying history of atrial fibrillation and she is on chronic anticoagulation with Xarelto. In the emergency room today, the patient had CT of brain, which showed hypodensity in right frontal subcortical white matter. Her chest x-ray was showing new hazy pleural parenchymal opacity at left lung base, though the patient denies any cough, nausea, vomiting, chest pain, shortness of breath. In the emergency room, routine blood test showed mild leukocytosis and mild hyponatremia. This patient already has chronic pain stimulator. At this point, we are going to keep this patient in hospital for atrial fibrillation with RVR and her generalized weakness. REVIEW OF SYSTEMS: CONSTITUTIONAL: Negative for weight loss or gain, ability to conduct usual activities. SKIN: Negative for rash, itching. EYES: Negative for double vision, pain. ENT/MOUTH: Negative for nose bleeding, neck stiffness, pain, tenderness. CARDIOVASCULAR: Negative for palpitations, dyspnea on exertion, orthopnea. RESPIRATORY: Negative for shortness of breath, wheezing, cough, hemoptysis, fever or night sweats. GASTROINTESTINAL: Negative for poor appetite, abdominal pain, heartburn, nausea , vomiting, constipation, or diarrhea. GENITOURINARY: Negative for urgency, frequency, dysuria, nocturia. MUSCULOSKELETAL: Negative for pain, swelling. NEUROLOGIC/PSYCHIATRIC: Negative for anxiety, depression. ALLERGY/IMMUNOLOGIC: Negative for skin rash, bleeding tendency. Please see my HPI for pertinent positives and negative. All other review of systems reviewed and negative except as mentioned in HPI. ALLERGIES: NO KNOWN DRUG ALLERGY. CURRENT HOME MEDICATIONS: 1. Morphine sulfate 30 mg q.8 hourly p.r.n. 2. Aspirin 81 mg daily. 3. Lasix 40 mg daily. 4. Methocarbamol 750 mg daily. 5. Reglan 5 mg daily. 6. Gabapentin 300 mg daily. 7. Xarelto 20 mg daily. 8. [place] 10 one tablet q.6 hourly p.r.n. PAST MEDICAL HISTORY: 1. Chronic atrial fibrillation. 2. Chronic low back pain. 3. Gastroesophageal reflux disease. 4. Moderate mitral and tricuspid regurgitation. 5. History of carotid stenosis on the right side. PAST SURGICAL HISTORY: Back surgery x6, right foot surgery, bilateral hand surgery due to rheumatoid arthritis, left and right ankle surgery, left shoulder surgery x2. The patient also has screws and plates in her right ankle, appendicectomy, hysterectomy, tonsillectomy, and internal spinal cord pain stimulator. PAST PSYCHIATRIC HISTORY: Anxiety and depression. SOCIAL HISTORY: The patient lives at home currently. She recently released from rehab. She is able to walk with a walker. No history of tobacco, alcohol, or illicit drug abuse. FAMILY HISTORY: Mother from congestive heart failure in her 80s. Father from congestive heart failure in his 80s. Her had SD and Crohn disease. EMERGENCY ROOM COURSE: The patient is started on Cardizem drip. PHYSICAL EXAMINATION: VITAL SIGNS: On arrival, blood pressure 133/87, pulse 113 and irregular, respiratory rate 20, temperature 98.7, saturation 99% on room air. Weight 65.7 kg. GENERAL: The patient is currently alert and awake. No obvious acute distress. Hard of hearing. HEENT: Head; normocephalic. The patient does have left-sided facial droop. Eyes; pupils round, reactive to light. Extraocular muscle intact. Conjunctivae are pale. ENT; pale mucous membranes. No oral lesion. No pharyngeal erythema. No exudate. NECK: Supple. No JVD. No thyromegaly. No carotid bruit. LUNGS: Clear to auscultation without any rhonchi or rales, though air entry reduced at bases. CARDIAC: S1 and S2. Irregularly irregular. Systolic murmur present parasternally and apex. No gallop. No rub. ABDOMEN: Soft. Bowel sounds present. Nontender. Nondistended. No organomegaly. No mass. No suprapubic tenderness. RECTAL: Done in the emergency room showing hemorrhoids with brown stool. BACK: Unremarkable. No CVA tenderness. EXTREMITIES: Upper extremities; passive movement of all joints are normal. Lower extremities; trace lower extremity edema noted. Good distal pulsation. SKIN: No skin rash. Pale. HEMATOLOGIC: No lymphadenopathy. PSYCHIATRIC: Normal affect. NEUROLOGIC: The patient is alert, oriented x3. No focal sensory deficit. The patient does have left-sided facial droop. SIGNIFICANT LABORATORY DATA: EKG showing atrial fibrillation with RVR, nonspecific ST-T changes. CT of brain showing hypodensity in the right frontal subcortical white matter. Chest x-ray based on my review, no acute cardiopulmonary process other than haziness on the left lung base. CBC; WBC 11.4, hemoglobin 9.5, platelets 554. BMP; sodium 131, potassium 4.7, chloride 95, carbon dioxide 27, anion gap 14, BUN 7, creatinine 0.61, glucose 144, calcium 8.8. LFTs; AST 10, ALT less than 7, alkaline phosphatase 98, albumin 2.9. BNP 353.1. Urinalysis normal. ASSESSMENT AND PLAN: Impression: 1. Generalized weakness, multifactorial. 2. Atrial fibrillation with rapid ventricular response in view of chronic atrial fibrillation. CONTINUE CARDIZEM DRIP, CARDIOLOGY CONSULT 3. Anemia, normocytic, normochromic. We will check ferritin level and if ferritin low, then we will transfuse iron. 4. Chronic diastolic heart failure. The patient had most recent echocardiography in October 2017. The patient will be given Lasix 20 mg IV b.i.d. 5. Chronic pain disorder with chronic low back pain. The patient is taking morphine sulfate p.r.n. basis. She has a dorsal spine pain stimulator. Continue gabapentin 300 mg p.o. at bedtime. 6. Chronic anticoagulation. Continue Xarelto 20 mg p.o. daily. 7. Suspected subacute stroke. We will consult Neurology for evaluation. This patient cannot have MRI because of pain stimulator. 8. Dyslipidemia. We will continue Lipitor 20 mg p.o. at bedtime. 9. History of moderate mitral regurgitation and tricuspid regurgitation, stable. 10. Anxiety and depression, stable without any medicine. 11. Deep venous thrombosis prophylaxis. The patient is already on Xarelto therapy. 12. Gastrointestinal prophylaxis, Pepcid 20 mg p.o. b.i.d. CODE STATUS: The patient is full code. DISPOSITION PLAN: Based on clinical course, plan of care discussed with the patient and family member at bedside. Job ID: [id number] MTDD
[2018-02-10] MEDS ORDERED: Furosemide 20 MG/2 ML VIAL SLOW IVP SCH (15:30)
[2018-02-10 16:48] LABS: Troponin I Less than 0.010 ng/mL (< 0.028)
[2018-02-10] MEDS: HYDROcodone/Acetaminophen 5/325 mg Tablet PO PRN (17:34)
[2018-02-10] MEDS ORDERED: Metoprolol Tartrate 50 MG TAB PO SCH (18:45)
--- NOTE | 2018-02-10 18:56 | CON ---
DATE OF CONSULTATION: REASON FOR CONSULTATION: Confusion and atrial fibrillation. HISTORY OF PRESENT ILLNESS: Ms. Marimar Rosas is a pleasant 87-year-old woman, who is a patient of Dr. Nolberto John. She was last seen and evaluated in June of 2017. She has a previous history of persistent atrial fibrillation. She has been on Eliquis 5 mg p.o. b.i.d., although compliance has been a concern. She re-presented with mental status changes. There is concern for recurrent stroke. She has no current complaints except for weakness. No chest pain or pressure noted. She is currently rate controlled. She is on IV Cardizem at 5 mg/hour. PAST MEDICAL HISTORY: Atrial fibrillation, acid reflux, carotid stenosis. HOME MEDICATIONS: Include; 1. Xarelto. 2. Gabapentin. 3. Methocarbamol. 4. Reglan. 5. Aspirin. 6. Lasix. 7. Morphine. 8. [place]. ALLERGIES: NONE. PAST SURGICAL HISTORY: Back surgery, foot surgery, hand surgery, shoulder surgery, and ankle surgery. SOCIAL HISTORY: No current tobacco, tobacco, or alcohol use. She is recently released from rehab. REVIEW OF SYSTEMS: Ten-point review of systems is reviewed and is negative. PHYSICAL EXAMINATION: GENERAL: The patient is a pleasant female who is in no acute distress. The patient appears their stated age. VITAL SIGNS: Blood pressure 133/74, pulse 105, temperature 98.1. NEUROLOGIC: The patient is alert and oriented x3 with no focal neurologic deficits. HEENT: Sclerae without icterus. Mouth has moist mucous membranes with normal pallor. NECK: No JVD. Carotid upstroke brisk. No bruits bilaterally. LUNGS: Clear to auscultation with unlabored respirations. BACK: No scoliosis or kyphosis. CARDIAC: Irregularly irregular. ABDOMEN: Soft, nontender, nondistended. No peritoneal signs present. No hepatosplenomegaly. No abnormal striae. EXTREMITIES: 2+ femoral and 2+ dorsalis pedis pulses. No cyanosis, clubbing, or edema. SKIN: No gross abnormalities. PERTINENT LABORATORY DATA: Hemoglobin 9.5, creatinine 0.61, BNP 353. Last echo dated 02/20/2017 with LVEF 50% to 55%. IMPRESSION: 1. Atrial fibrillation. 2. Mental status changes. 3. ? stroke. RECOMMENDATIONS: At this point, we will continue IV Cardizem at 5 mg/hour. We will try supplemental p.o. Cardizem. She has not been on medication for rate control in the office. We will add Cardizem at 30 mg one p.o. q.6 hours. There is a question of compliance as far as anticoagulation therapy versus confusion on properly taking the medication. CT scan of the brain dated 02/10/2018 did suggest hypodensity in the right frontal subcortical white matter and MRI recommended. Job ID: [id number]
[2018-02-10 19:55] LABS: Troponin I Less than 0.010 ng/mL (< 0.028)
[2018-02-10] MEDS: Famotidine 20 MG TAB PO SCH (20:31)
[2018-02-10] MEDS: Gabapentin 300 MG CAP PO SCH (20:31)
[2018-02-10] MEDS: Atorvastatin Calcium 20 MG TAB PO SCH (20:31)
[2018-02-10] MEDS: Morphine ER 30 MG TAB PO PRN (20:32)
[2018-02-11 05:42] LABS: #Eosinphils 0.1 thou/uL (0.0-0.7); #Lymphocytes 1.6 thou/uL (1.20-3.40); #Neutrophils 7.7 thou/uL (1.40-6.50); %Basophils 0.3 % (0.0-1.0); %Eosinophils 0.7 % (0.0-10.0); %Lymphocytes 15.1 % (21.0-51.0); %Monocytes 9.5 % (0.0-10.0); %Neutrophils 74.4 % (42.0-75.0); Mean Corpuscular HGB CONC 32.6 g/dL (32.0-36.0); Mean Corpuscular Hemoglobin 28.3 pg (27.0-31.0); Mean Corpuscular Volume 86.7 fL (78.0-98.0); Mean Platelet Volume 7.9 fL (7.4-10.4); Platelet Count 617 thou/uL (130-400); RBC Distribution Width 12.9 % (11.5-14.5); Red Blood Cell (RBC) Count 3.18 mill/uL (4.20-5.40); White Blood Cell (WBC) Count 10.3 thou/uL (4.8-10.8)
[2018-02-11 06:09] LABS: Anion Gap 13 mmol/L (10-20); BUN (Urea Nitrogen) 8 mg/dL (9.8-20.1); Calc. Creatinine Clearance 74 mL/min (70-130); Calcium 8.4 mg/dL (7.8-10.44); Carbon Dioxide 27 mmol/L (23-31); Cardiac Risk 3.4 (Less than 4.5); Chloride 95 mmol/L (98-107); Cholesterol 130 mg/dl (< 200 Desired); Estimated GFR-MDRD Greater than 90; Glucose 113 mg/dL (83-110); HDL Cholesterol 38 mg/dL (>60 Neg Risk); LDL Cholesterol, Calculated 81 mg/dL; Potassium 3.9 mmol/L (3.5-5.1); Sodium 131 mmol/L (136-145); Triglycerides 55 mg/dL (Less than 150)
[2018-02-11] MEDS: Furosemide 20 MG/2 ML VIAL SLOW IVP SCH ×2 (06:19→14:18)
[2018-02-11 06:21] LABS: Ferritin 612.83 ng/mL (10-291); Thyroid Stimulating Hormone 1.7782 uIU/mL (0.35-4.94)
[2018-02-11] MEDS: Rivaroxaban 10 MG TAB PO SCH (09:41)
[2018-02-11] MEDS: Famotidine 20 MG TAB PO SCH ×2 (09:41→21:17)
[2018-02-11] MEDS: Metoprolol Tartrate 50 MG TAB PO SCH ×2 (09:41→21:17)
[2018-02-11] MEDS ORDERED: Metoclopramide HCl 10 MG TAB PO SCH (10:00)
--- NOTE | 2018-02-11 11:21 | PDOC.PN ---
- Subjective Encounter Start Date: 02/11/18 Encounter Start Time: 07:20 -: old records requested/rev rate controlled with cardizem drip no new problem Patient seen and examined. No new complaints. No overnight events - Objective Resuscitation Status - Order Detail: 02/10/18 13:20 Resuscitation Status Routine Resuscitation Status: FULL: Full Resuscitation MAR Reviewed: Yes Vital Signs & Weight: Vital Signs (12 hours) Temp Pulse Resp BP Pulse Ox 02/11/18 07:55 98.0 F 68 16 115/63 92 L 02/11/18 03:56 98.6 F 73 20 107/61 96 02/11/18 00:00 97.8 F 82 20 118/57 L 97 Weight Weight 155 lb 4 oz I&O: 02/10/18 02/11/18 02/12/18 06:59 06:59 06:59 Output Total 1200 Balance -1200 Result Diagrams: 02/11/18 04:28 02/11/18 04:28 EKG Reviewed by me: Yes (afib) Phys Exam - Physical Examination Constitutional: NAD HEENT: PERRLA, moist MMs, sclera anicteric Neck: no JVD, supple Respiratory: no wheezing, no rales, no rhonchi Cardiovascular: irregular SM+ Gastrointestinal: soft, non-tender, no distention, positive bowel sounds Musculoskeletal: no edema, pulses present Neurological: non-focal, moves all 4 limbs Lymphatic: no nodes Psychiatric: normal affect Skin: no rash, normal turgor Dx/Plan (1) Weakness generalized Code(s): R53.1 - WEAKNESS Status: Acute (2) Atrial fibrillation Code(s): I48.91 - UNSPECIFIED ATRIAL FIBRILLATION Status: Acute Qualifiers: Atrial fibrillation type: paroxysmal Qualified Code(s): I48.0 - Paroxysmal atrial fibrillation Comment: with RVR, controlled rate (3) Carotid stenosis, right Code(s): I65.21 - OCCLUSION AND STENOSIS OF RIGHT CAROTID ARTERY Status: Chronic (4) Chronic low back pain Code(s): M54.5 - LOW BACK PAIN; G89.29 - OTHER CHRONIC PAIN Status: Chronic (5) GERD (gastroesophageal reflux disease) Code(s): K21.9 - GASTRO-ESOPHAGEAL REFLUX DISEASE WITHOUT ESOPHAGITIS Status: Chronic Qualifiers: Esophagitis presence: without esophagitis Qualified Code(s): K21.9 - Gastro -esophageal reflux disease without esophagitis (6) Moderate mitral regurgitation Code(s): I34.0 - NONRHEUMATIC MITRAL (VALVE) INSUFFICIENCY Status: Chronic (7) Moderate tricuspid regurgitation Code(s): I07.1 - RHEUMATIC TRICUSPID INSUFFICIENCY Status: Chronic - Plan cont current plan of care * continue cardizem cd * continue metoprolol * medication reviewed as below * symptomatic treatment * cardiology and neurology on case. * continue lasix Review of Systems - Review of Systems ENT: negative: Ear Pain, Ear Discharge, Nose Pain, Nose Discharge, Nose Congestion, Mouth Pain, Mouth Swelling, Throat Pain, Throat Swelling, Other Respiratory: negative: Cough, Dry, Shortness of Breath, Hemoptysis, SOB with Excertion, Pleuritic Pain, Sputum, Wheezing Cardiovascular: negative: chest pain, palpitations, orthopnea, paroxysmal nocturnal dyspnea, edema, light headedness, other Gastrointestinal: negative: Nausea, Vomiting, Abdominal Pain, Diarrhea, Constipation, Melena, Hematochezia, Other Genitourinary: negative: Dysuria, Frequency, Incontinence, Hematuria, Retention , Other Musculoskeletal: negative: Neck Pain, Shoulder Pain, Arm Pain, Back Pain, Hand Pain, Leg Pain, Foot Pain, Other Skin: negative: Rash, Lesions, Yared, Bruising, Other - Medications/Allergies Allergies/Adverse Reactions: Allergies Allergy/AdvReac Type Severity Reaction Status Date / Time No Known Drug Allergies Allergy Verified 10/31/17 16:00 Medications: Current Medications Acetaminophen (Tylenol) 650 mg PO Q4H PRN PRN Reason: Headache/Fever/Mild Pain (1-3) Hydrocodone Bitart/Acetaminophen ([place] 5/325) 1 tab PO Q4H PRN PRN Reason: Moderate Pain (4-6) Last Admin: 02/10/18 17:34 Dose: 1 tab Artificial Tears (Tears Renewed 15ml Bottle) 2 drop EA EYE PRN PRN PRN Reason: Dry Eyes Aspirin (Aspirin Chewable) 81 mg PO 1000 [facility] Stop: 02/11/18 12:00 Aspirin (Aspirin Chewable) 81 mg PO DAILY [facility] Atorvastatin Calcium (Lipitor) 20 mg PO HS [facility] Last Admin: 02/10/18 20:31 Dose: 20 mg Bisacodyl (Dulcolax) 10 mg [place] DAILYPRN PRN PRN Reason: Constipation Calcium Carbonate (Tums) 1,000 mg PO Q4H PRN PRN Reason: Heartburn or Indigestion Diltiazem HCl (Cardizem Cd) 180 mg PO DAILY [facility] Diltiazem HCl (Cardizem Cd) 180 mg PO 1000 [facility] Stop: 02/11/18 12:00 Last Admin: 02/11/18 10:53 Dose: 180 mg Famotidine (Pepcid) 20 mg PO BID [facility] Last Admin: 02/11/18 09:41 Dose: 20 mg Furosemide (Lasix) 20 mg SLOW IVP 0600,1400 [facility] Last Admin: 02/11/18 06:19 Dose: 20 mg Gabapentin (Neurontin) 300 mg PO HS [facility] Last Admin: 02/10/18 20:31 Dose: 300 mg Guaifenesin (Robitussin Sf) 200 mg PO Q4H PRN PRN Reason: Cough Labetalol HCl (Normodyne) 10 mg SLOW IVP Q4H PRN PRN Reason: SBP > 180 and HR >/= 70 Loperamide HCl (Imodium) 2 mg PO PRN PRN PRN Reason: Diarrhea/Loose Stools Methocarbamol (Robaxin) 500 mg PO Q8HR [facility] Metoclopramide HCl (Reglan) 5 mg PO DAILY [facility] Metoclopramide HCl (Reglan) 5 mg PO 1000 [facility] Stop: 02/11/18 12:00 Last Admin: 02/11/18 10:53 Dose: 5 mg Metoprolol Tartrate (Lopressor) 50 mg PO BID [facility] Last Admin: 02/11/18 09:41 Dose: 50 mg Mineral Oil/White Petrolatum (Eucerin Cream) 0 gm TOP BIDPRN PRN PRN Reason: Dry Skin Morphine Sulfate (Ms Contin) 30 mg PO Q8H PRN PRN Reason: Severe Pain (7-10) Last Admin: 02/10/18 20:32 Dose: 30 mg Ondansetron HCl (Zofran Odt) 4 mg PO Q6H PRN PRN Reason: Nausea/Vomiting Ondansetron HCl (Zofran) 4 mg IVP Q6H PRN PRN Reason: Nausea/Vomiting Potassium Chloride (Klor-Con 10) 10 meq PO DAILY [facility] Rivaroxaban (Xarelto) 20 mg PO DAILY [facility] Last Admin: 02/11/18 09:41 Dose: 20 mg Senna/Docusate Sodium (Senokot S) 2 tab PO BID PRN PRN Reason: Constipation Sodium Chloride ([place] Nasal [place] 0.65%) 0 ml EA NARE QIDPRN PRN PRN Reason: Nasal Congestion Sodium Chloride (Flush - Normal Saline) 10 ml IVF Q12HR [facility] Last Admin: 02/11/18 09:44 Dose: Not Given Sodium Chloride (Flush - Normal Saline) 10 ml IVF PRN PRN PRN Reason: Saline Flush Throat Lozenges (Cepastat Lozenges) 1 jose a PO Q2H PRN PRN Reason: Sore Throat Zolpidem Tartrate (Ambien) 5 mg PO HSPRN PRN PRN Reason: Insomnia
[2018-02-11] MEDS: Methocarbamol 500 MG TAB PO SCH ×2 (14:18→21:17)
[2018-02-11] MEDS: Morphine ER 30 MG TAB PO PRN (15:22)
[2018-02-11] MEDS: Atorvastatin Calcium 20 MG TAB PO SCH (21:17)
[2018-02-11] MEDS: Gabapentin 300 MG CAP PO SCH (21:17)
[2018-02-11] MEDS: Morphine ER 30 MG TAB PO SCH (23:06)
[2018-02-12] MEDS: Methocarbamol 500 MG TAB PO SCH (06:30)
[2018-02-12] MEDS: Morphine ER 30 MG TAB PO SCH ×3 (06:30→20:47)
[2018-02-12] MEDS: Furosemide 20 MG/2 ML VIAL SLOW IVP SCH ×2 (06:30→14:39)
[2018-02-12] MEDS ORDERED: Methocarbamol 500 MG TAB PO PRN (08:43)
[2018-02-12] MEDS: Metoprolol Tartrate 50 MG TAB PO SCH (09:02)
[2018-02-12] MEDS: Famotidine 20 MG TAB PO SCH ×2 (09:02→20:48)
[2018-02-12] MEDS: Metoclopramide HCl 10 MG TAB PO SCH (09:02)
[2018-02-12] MEDS: Rivaroxaban 10 MG TAB PO SCH (09:02)
[2018-02-12] MEDS: Potassium Chloride 10 MEQ TAB PO SCH (09:02)
--- NOTE | 2018-02-12 09:17 | DIS ---
DATE OF ADMISSION: 02/10/2018 DATE OF DISCHARGE: 02/12/2018 PRIMARY CARE PHYSICIAN: Alissa Murdock MD. DISCHARGE DISPOSITION: Home. PRIMARY DISCHARGE DIAGNOSES: 1. Atrial fibrillation with rapid ventricular response, resolved. 2. Generalized weakness, improved. SECONDARY DISCHARGE DIAGNOSES: 1. Paroxysmal atrial fibrillation. 2. Right carotid stenosis. 3. Chronic low back pain. 4. Chronic pain disorder. 5. Gastroesophageal reflux disease. 6. Anemia, normocytic normochromic. 7. Chronic diastolic heart failure stage C. PRIMARY PROCEDURE/OPERATION: None. RADIOLOGICAL INVESTIGATION: CT brain showed hypodensity in right frontal subcortical white matter. Chest x-ray showed no acute cardiopulmonary process. LABORATORY DATA: Significant labs; WBC 10.3, hemoglobin 9.0, platelets 617. Sodium 131, potassium 3.9, chloride 95, BUN 8, creatinine 0.61, calcium 8.4. Cardiac enzymes negative x3. BNP 353.1, LDL 81. Urinalysis unremarkable. DISCHARGE MEDICATIONS: 1. Aspirin 81 mg p.o. daily. 2. Lipitor 20 mg p.o. at bedtime. 3. Cardizem CD 180 mg p.o. daily. 4. Metoprolol 50 mg p.o. b.i.d. 5. Xarelto 20 mg daily. 6. Potassium chloride 10 mEq p.o. daily. 7. Omeprazole 20 mg p.o. daily. 8. Reglan 5 mg p.o. daily p.r.n. 9. Gabapentin 300 mg p.o. at bedtime. 10. Lasix 40 mg p.o. daily. 11. Morphine sulfate extended release 30 mg p.o. q.8 hourly. CONTRAINDICATION: None. CODE STATUS: Full code. INPATIENT FORWARDER OPERATOR: Dr. Kline and Dr. John were following while in hospital. TEST RESULTS PENDING ON DISCHARGE: None. DISCHARGE PLAN: Posthospital, the patient will follow up with primary care physician in one week. HOSPITAL COURSE: An 87-year-old female, who has underlying history of paroxysmal atrial fibrillation. She was recently released from rehab as she was at home, and she was experiencing generalized weakness, palpitation. She was found with atrial fibrillation with RVR in the emergency room. She was treated with Cardizem drip. Cardiology was consulted. She was not taking any metoprolol medication, and during this admission, we started metoprolol and Cardizem CD p.o. 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 This patient was started on aspirin, and we also started Lipitor therapy. She is up to her baseline. She is on chronic pain medication. At this point, today her heart rate is under control. She is hemodynamically stable. The patient is back to her baseline level. She will be able to go home today. I have seen and examined the patient bedside today. REVIEW OF SYSTEMS: All review of systems reviewed with her is negative. PHYSICAL EXAMINATION: VITAL SIGNS: Currently, temperature 98.1, pulse 66, respiratory rate 22, saturation 94% on room air, blood pressure 118/58, weight 155 pounds. GENERAL: The patient is currently alert, awake. No obvious acute distress. HEENT: Head; normocephalic, atraumatic. Eyes; pupils round and reactive to light. Extraocular muscles intact. ENT, oropharynx within normal limits. Moist mucous membranes. No oral lesion. No pharyngeal erythema. No exudate. NECK: Supple. No JVD. No thyromegaly. No carotid bruit. LUNGS: Clear to auscultation without any rhonchi or rales. CARDIAC: S1, S2 irregular. No murmur. No gallop. No rub. ABDOMEN: Soft, benign. EXTREMITIES: No edema. NEUROLOGIC: Nonfocal examination. Overall, the patient is medically stable for discharge today. Job ID: [id number] MTDD
--- NOTE | 2018-02-12 10:38 | PDOC.PN ---
- Subjective Encounter Start Date: 02/12/18 Encounter Start Time: 10:36 Patient seen and examined. No new complaints. No overnight events pt is medically stable, family not comfortable to take care at home - Objective Resuscitation Status - Order Detail: 02/10/18 13:20 Resuscitation Status Routine Resuscitation Status: FULL: Full Resuscitation MAR Reviewed: Yes Vital Signs & Weight: Vital Signs (12 hours) Temp Pulse Pulse Resp BP BP Pulse Ox 02/12/18 08:10 76 102/56 L 02/12/18 08:00 97.7 F 72 18 118/64 02/12/18 04:00 98.1 F 66 22 H 118/58 L 94 L 02/12/18 00:00 97.7 F 67 18 106/56 L 93 L Weight Weight 155 lb 4 oz I&O: 02/11/18 02/12/18 02/13/18 06:59 06:59 06:59 Intake Total 360 Output Total 1200 Balance -1200 360 Result Diagrams: 02/11/18 04:28 02/11/18 04:28 EKG Reviewed by me: Yes Phys Exam - Physical Examination Constitutional: NAD HEENT: PERRLA, moist MMs, sclera anicteric Neck: no JVD, supple Respiratory: no wheezing, no rales, no rhonchi Cardiovascular: no significant murmur, irregular Gastrointestinal: soft, non-tender, no distention, positive bowel sounds Musculoskeletal: no edema, pulses present Neurological: non-focal, normal sensation, moves all 4 limbs Psychiatric: normal affect, A&O x 3 Skin: no rash, normal turgor Dx/Plan (1) Weakness generalized Code(s): R53.1 - WEAKNESS Status: Acute (2) Atrial fibrillation Code(s): I48.91 - UNSPECIFIED ATRIAL FIBRILLATION Status: Acute Qualifiers: Atrial fibrillation type: paroxysmal Qualified Code(s): I48.0 - Paroxysmal atrial fibrillation Comment: with RVR, controlled rate (3) Carotid stenosis, right Code(s): I65.21 - OCCLUSION AND STENOSIS OF RIGHT CAROTID ARTERY Status: Chronic (4) Chronic low back pain Code(s): M54.5 - LOW BACK PAIN; G89.29 - OTHER CHRONIC PAIN Status: Chronic (5) GERD (gastroesophageal reflux disease) Code(s): K21.9 - GASTRO-ESOPHAGEAL REFLUX DISEASE WITHOUT ESOPHAGITIS Status: Chronic Qualifiers: Esophagitis presence: without esophagitis Qualified Code(s): K21.9 - Gastro -esophageal reflux disease without esophagitis (6) Moderate mitral regurgitation Code(s): I34.0 - NONRHEUMATIC MITRAL (VALVE) INSUFFICIENCY Status: Chronic (7) Moderate tricuspid regurgitation Code(s): I07.1 - RHEUMATIC TRICUSPID INSUFFICIENCY Status: Chronic - Plan cont current plan of care, social services director * medication reviewed as below * symptomatic treatment * will dc metoprolol * rn case management for discharge plan. Review of Systems - Review of Systems ENT: negative: Ear Pain, Ear Discharge, Nose Pain, Nose Discharge, Nose Congestion, Mouth Pain, Mouth Swelling, Throat Pain, Throat Swelling, Other Respiratory: negative: Cough, Dry, Shortness of Breath, Hemoptysis, SOB with Excertion, Pleuritic Pain, Sputum, Wheezing Cardiovascular: negative: chest pain, palpitations, orthopnea, paroxysmal nocturnal dyspnea, edema, light headedness, other Gastrointestinal: negative: Nausea, Vomiting, Abdominal Pain, Diarrhea, Constipation, Melena, Hematochezia, Other Genitourinary: negative: Dysuria, Frequency, Incontinence, Hematuria, Retention , Other Musculoskeletal: negative: Neck Pain, Shoulder Pain, Arm Pain, Back Pain, Hand Pain, Leg Pain, Foot Pain, Other - Medications/Allergies Allergies/Adverse Reactions: Allergies Allergy/AdvReac Type Severity Reaction Status Date / Time No Known Drug Allergies Allergy Verified 10/31/17 16:00 Medications: Current Medications Acetaminophen (Tylenol) 650 mg PO Q4H PRN PRN Reason: Headache/Fever/Mild Pain (1-3) Hydrocodone Bitart/Acetaminophen ([employer] 5/325) 1 tab PO Q4H PRN PRN Reason: Moderate Pain (4-6) Last Admin: 02/10/18 17:34 Dose: 1 tab Artificial Tears (Tears Renewed 15ml Bottle) 2 drop EA EYE PRN PRN PRN Reason: Dry Eyes Aspirin (Aspirin Chewable) 81 mg PO DAILY [facility] Last Admin: 02/12/18 09:01 Dose: 81 mg Atorvastatin Calcium (Lipitor) 20 mg PO HS [facility] Last Admin: 02/11/18 21:17 Dose: 20 mg Bisacodyl (Dulcolax) 10 mg [place] DAILYPRN PRN PRN Reason: Constipation Calcium Carbonate (Tums) 1,000 mg PO Q4H PRN PRN Reason: Heartburn or Indigestion Diltiazem HCl (Cardizem Cd) 180 mg PO DAILY [facility] Last Admin: 02/12/18 09:02 Dose: 180 mg Famotidine (Pepcid) 20 mg PO BID [facility] Last Admin: 02/12/18 09:02 Dose: 20 mg Furosemide (Lasix) 20 mg SLOW IVP 0600,1400 [facility] Last Admin: 02/12/18 06:30 Dose: 20 mg Gabapentin (Neurontin) 300 mg PO HS [facility] Last Admin: 02/11/18 21:17 Dose: 300 mg Guaifenesin (Robitussin Sf) 200 mg PO Q4H PRN PRN Reason: Cough Labetalol HCl (Normodyne) 10 mg SLOW IVP Q4H PRN PRN Reason: SBP > 180 and HR >/= 70 Loperamide HCl (Imodium) 2 mg PO PRN PRN PRN Reason: Diarrhea/Loose Stools Methocarbamol (Robaxin) 500 mg PO Q8H PRN PRN Reason: Muscle Spasm Metoclopramide HCl (Reglan) 5 mg PO DAILY [facility] Last Admin: 02/12/18 09:02 Dose: 5 mg Mineral Oil/White Petrolatum (Eucerin Cream) 0 gm TOP BIDPRN PRN PRN Reason: Dry Skin Morphine Sulfate (Ms Contin) 30 mg PO Q8HR [facility] Last Admin: 02/12/18 06:30 Dose: 30 mg Ondansetron HCl (Zofran Odt) 4 mg PO Q6H PRN PRN Reason: Nausea/Vomiting Ondansetron HCl (Zofran) 4 mg IVP Q6H PRN PRN Reason: Nausea/Vomiting Potassium Chloride (Klor-Con 10) 10 meq PO DAILY [facility] Last Admin: 02/12/18 09:02 Dose: 10 meq Rivaroxaban (Xarelto) 20 mg PO DAILY [facility] Last Admin: 02/12/18 09:02 Dose: 20 mg Senna/Docusate Sodium (Senokot S) 2 tab PO BID PRN PRN Reason: Constipation Sodium Chloride ([place] Nasal [place] 0.65%) 0 ml EA NARE QIDPRN PRN PRN Reason: Nasal Congestion Sodium Chloride (Flush - Normal Saline) 10 ml IVF Q12HR [facility] Last Admin: 12/12/18 09:03 Dose: 10 ml Sodium Chloride (Flush - Normal Saline) 10 ml IVF PRN PRN PRN Reason: Saline Flush Throat Lozenges (Cepastat Lozenges) 1 jose a PO Q2H PRN PRN Reason: Sore Throat Zolpidem Tartrate (Ambien) 5 mg PO HSPRN PRN PRN Reason: Insomnia
--- NOTE | 2018-02-12 15:28 | EKG ---
Test Reason : Blood Pressure : / mmHG Vent. Rate : 114 BPM Atrial Rate : 153 BPM P-R Int : 000 ms QRS Dur : 068 ms QT Int : 278 ms P-R-T Axes : 000 050 206 degrees QTc Int : 383 ms Atrial fibrillation with rapid ventricular response with premature ventricular or aberrantly conducte d complexes Low voltage QRS Nonspecific ST and T wave abnormality , probably digitalis effect Abnormal ECG Confirmed by ANGELITA CANTU, DENTON ([id number]), writer editor CARRIE MARKS ([id number]) on 02/12/2018 3:28:34 PM Referred By: Confirmed By:DENTON GOLDSTEIN MD
[2018-02-12] MEDS: Atorvastatin Calcium 20 MG TAB PO SCH (20:48)
[2018-02-12] MEDS: Gabapentin 300 MG CAP PO SCH (20:48)
[2018-02-13] MEDS: Morphine ER 30 MG TAB PO SCH (05:41)
[2018-02-13 07:46] VITALS: BP 119/75; TEMP 97.4
[2018-02-13] MEDS: HYDROcodone/Acetaminophen 5/325 mg Tablet PO PRN (08:20)
[2018-02-13] MEDS: Metoclopramide HCl 10 MG TAB PO SCH (08:21)
[2018-02-13] MEDS: Rivaroxaban 10 MG TAB PO SCH (08:22)
[2018-02-13] MEDS: Potassium Chloride 10 MEQ TAB PO SCH (08:22)
[2018-02-13] MEDS: Famotidine 20 MG TAB PO SCH (08:22)
[2018-02-13] MEDS ORDERED: Furosemide 40 MG TAB PO SCH (09:00)
--- NOTE | 2018-02-13 10:55 | PDOC.PN ---
- Subjective Encounter Start Date: 02/13/18 Encounter Start Time: 07:00 -: old records requested/rev Patient seen and examined. No new complaints. No overnight events - Objective Resuscitation Status - Order Detail: 02/10/18 13:20 Resuscitation Status Routine Resuscitation Status: FULL: Full Resuscitation MAR Reviewed: Yes Vital Signs & Weight: Vital Signs (12 hours) Temp Pulse Resp BP Pulse Ox 02/13/18 08:20 92 L 02/13/18 07:45 97.4 F L 80 20 119/75 92 L 02/13/18 03:13 97.5 F L 66 18 117/61 92 L 02/12/18 23:35 97.6 F 65 16 119/63 92 L Weight Weight 155 lb 4 oz I&O: 02/12/18 02/13/18 02/14/18 06:59 06:59 06:59 Intake Total 860 Balance 860 Result Diagrams: 02/11/18 04:28 02/11/18 04:28 EKG Reviewed by me: Yes (afib) Phys Exam - Physical Examination Constitutional: NAD HEENT: PERRLA, moist MMs, sclera anicteric Neck: no JVD, supple Respiratory: no wheezing, no rales, no rhonchi Cardiovascular: no significant murmur, irregular Gastrointestinal: soft, non-tender, no distention, positive bowel sounds Musculoskeletal: no edema, pulses present Neurological: non-focal, normal sensation Lymphatic: no nodes Psychiatric: normal affect, A&O x 3 Skin: no rash, normal turgor Dx/Plan (1) Weakness generalized Code(s): R53.1 - WEAKNESS Status: Acute (2) Atrial fibrillation Code(s): I48.91 - UNSPECIFIED ATRIAL FIBRILLATION Status: Acute Qualifiers: Atrial fibrillation type: paroxysmal Qualified Code(s): I48.0 - Paroxysmal atrial fibrillation Comment: with RVR, controlled rate (3) Carotid stenosis, right Code(s): I65.21 - OCCLUSION AND STENOSIS OF RIGHT CAROTID ARTERY Status: Chronic (4) Chronic low back pain Code(s): M54.5 - LOW BACK PAIN; G89.29 - OTHER CHRONIC PAIN Status: Chronic (5) GERD (gastroesophageal reflux disease) Code(s): K21.9 - GASTRO-ESOPHAGEAL REFLUX DISEASE WITHOUT ESOPHAGITIS Status: Chronic Qualifiers: Esophagitis presence: without esophagitis Qualified Code(s): K21.9 - Gastro -esophageal reflux disease without esophagitis (6) Moderate mitral regurgitation Code(s): I34.0 - NONRHEUMATIC MITRAL (VALVE) INSUFFICIENCY Status: Chronic (7) Moderate tricuspid regurgitation Code(s): I07.1 - RHEUMATIC TRICUSPID INSUFFICIENCY Status: Chronic - Plan cont current plan of care, renal social worker * medication reviewed as below * symptomatic treatment * see my discharge summery from yesterday. Review of Systems - Review of Systems ENT: negative: Ear Pain, Ear Discharge, Nose Pain, Nose Discharge, Nose Congestion, Mouth Pain, Mouth Swelling, Throat Pain, Throat Swelling, Other Respiratory: negative: Cough, Dry, Shortness of Breath, Hemoptysis, SOB with Excertion, Pleuritic Pain, Sputum, Wheezing Cardiovascular: negative: chest pain, palpitations, orthopnea, paroxysmal nocturnal dyspnea, edema, light headedness, other Gastrointestinal: negative: Nausea, Vomiting, Abdominal Pain, Diarrhea, Constipation, Melena, Hematochezia, Other Genitourinary: negative: Dysuria, Frequency, Incontinence, Hematuria, Retention , Other Musculoskeletal: negative: Neck Pain, Shoulder Pain, Arm Pain, Back Pain, Hand Pain, Leg Pain, Foot Pain, Other - Medications/Allergies Allergies/Adverse Reactions: Allergies Allergy/AdvReac Type Severity Reaction Status Date / Time No Known Drug Allergies Allergy Verified 10/31/17 16:00
--- NOTE | 2018-02-13 13:51 | DIS ---
DATE OF ADMISSION: 02/10/2018 DATE OF DISCHARGE: 02/13/2018 ADDENDUM: PRIMARY CARE PHYSICIAN: Dr. Alissa Murdock. Please see my discharge summary dictated on February 12, 2018. The patient's family member was not comfortable to take care of her at home and that is why they requested placement with help of caseworker, [facility] [place]. Paperwork for discharge done. Discharge medication reconciliation done. The patient is medically stable for discharge. The patient is seen and examined at bedside today. Please see my progress note from today for further details. Job ID: [id number]
== END 2018-02-13 10:43 | DRG 309 ==
LOC: ERS 10:10 → 2SE 14:42
PROVIDERS: ADMIT Internal Medicine; ATTEND Internal Medicine
DX: I48.0 Paroxysmal atrial fibrillation (principal); E87.1 Hypo-osmolality and hyponatremia; I50.32 Chronic diastolic (congestive) heart failure; D72.829 Elevated white blood cell count, unspecified; M54.5 Low back pain; G89.29 Other chronic pain; K21.9 Gastro-esophageal reflux disease without esophagitis; I08.1 Rheumatic disorders of both mitral and tricuspid valves; F41.9 Anxiety disorder, unspecified; F32.9 Major depressive disorder, single episode, unspecified; D64.9 Anemia, unspecified; E78.5 Hyperlipidemia, unspecified; I65.21 Occlusion and stenosis of right carotid artery; Z79.82 Long term (current) use of aspirin; Z79.01 Long term (current) use of anticoagulants; Z86.73 Personal history of transient ischemic attack (TIA), and cerebral infarction without residual deficits; Z82.49 Family history of ischemic heart disease and other diseases of the circulatory system
CPT/HCPCS: 36415; 51701; 70450; 71045; 80048; 80053; 80061; 81003; 82274; 82728; 83880; 84443; 84484; 85025; 93005; 94760; 96365; 96366; G8978-GP-CM; G8979-GP-CK; G8996-GN-CJ; G8997-GN-CI; J1940; J7050

== ENCOUNTER 2018-02-21 09:57 | Outpatient (CLI) | payer MEDICARE, BC ==
--- NOTE | 2018-02-21 12:15 | RAD ---
PA AND LATERAL VIEWS CHEST: Date: 02/21/18 HISTORY: Dyspnea. FINDINGS/IMPRESSION: Comparison made with exam of 02/10/18. The heart is enlarged. The aorta is tortuous. Calcified nodes in the left hilar region are again seen . There is a small right and moderate left pleural effusion with left basilar consolidation. No pneum othoraces are seen. There are dorsal column stimulator leads in the lower thoracic spine. POS: OFF
== END 2018-02-21 09:58 | disposition home or self-care (01) ==
LOC: RAD 09:57
PROVIDERS: ATTEND Internal Medicine Pulmonary Disease
DX: R06.00 Dyspnea, unspecified (principal); I51.7 Cardiomegaly; Q25.46 Tortuous aortic arch; J90 Pleural effusion, not elsewhere classified; R91.8 Other nonspecific abnormal finding of lung field
CPT/HCPCS: 71046

== ENCOUNTER 2018-03-06 11:25 | Inpatient (IN) | payer MEDICARE, BC ==
[2018-03-06 12:00] LABS: #Lymphocytes 0.9 thou/uL (1.20-3.40); #Monocytes 1.4 thou/uL (0.11-0.59); #Neutrophils 12.9 thou/uL (1.40-6.50); %Basophils 0.2 % (0.0-1.0); %Eosinophils 0.1 % (0.0-10.0); %Lymphocytes 5.6 % (21.0-51.0); %Monocytes 9.2 % (0.0-10.0); %Neutrophils 84.9 % (42.0-75.0); Hemoglobin 9.7 g/dL (12.0-16.0); Mean Corpuscular HGB CONC 31.2 g/dL (32.0-36.0); Mean Corpuscular Volume 83.1 fL (78.0-98.0); Mean Platelet Volume 8.1 fL (7.4-10.4); Platelet Count 345 thou/uL (130-400); RBC Distribution Width 14.2 % (11.5-14.5); Red Blood Cell (RBC) Count 3.75 mill/uL (4.20-5.40); White Blood Cell (WBC) Count 15.1 thou/uL (4.8-10.8)
--- NOTE | 2018-03-06 12:09 | RAD ---
FRONTAL VIEW CHEST: Date: 03/06/18 COMPARISON: 2 view chest dated 02/21/18. INDICATION: Dyspnea. FINDINGS: There is a moderate left effusion with adjacent parenchymal density of the mid to inferior left lung. Right lung is grossly clear. Cardiac silhouette and pulmonary vasculature are prominent. Added densi ty of the mediastinum likely relates to calcified lymph nodes. IMPRESSION: 1. Moderate left effusion with adjacent atelectasis and/or pneumonia. 2. CHF. POS: [facility]
[2018-03-06 12:21] LABS: ALT (SGPT) Less than 7 U/L (8-55); AST (SGOT) 11 U/L (5-34); Alkaline Phosphatase 108 U/L (40-150); Anion Gap 15 mmol/L (10-20); BUN (Urea Nitrogen) 19 mg/dL (9.8-20.1); Bilirubin, Total 0.6 mg/dL (0.2-1.2); Calc. Creatinine Clearance 0 mL/min (70-130); Calcium 8.9 mg/dL (7.8-10.44); Carbon Dioxide 26 mmol/L (23-31); Chloride 92 mmol/L (98-107); Estimated GFR-MDRD 63; Globulin 3.4 g/dL (2.4-3.5); Glucose 154 mg/dL (83-110); Potassium 4.6 mmol/L (3.5-5.1); Protein, Total 6.4 g/dL (6.0-8.3); Sodium 128 mmol/L (136-145)
[2018-03-06 12:34] LABS: Actual Bicarbonate (HCO3a) 22.4 mEq/L (22-28); Base Excess (BEa) -1.3 mEq/L (-2.0 to +3.0); Calcium, Ionized 1.09 mmol/L (1.12-1.30); Carboxyhemoglobin (COHb) 1.3 gm% (0.0-3.0); Hemoglobin (Hb) 10.3 g/dL (12.0-16.0); pH, Arterial 7.44 (7.35-7.45)
[2018-03-06 12:36] LABS: Puncture Site L.B.
[2018-03-06] MEDS ORDERED: methylPREDNISolone Sod Succ/PF 125 MG/2 ML VIAL ONE (13:14)
[2018-03-06] MEDS ORDERED: Piperacillin/Tazobactam 4.5 GM VIAL ONE (13:14)
[2018-03-06] MEDS ORDERED: Water For Inject, Bacteriostat 30 ML ONE (13:14)
[2018-03-06] MEDS ORDERED: Acetaminophen 650 MG Suppository PR PRN (14:32)
[2018-03-06] MEDS ORDERED: Senokot S 8.6-50 MG TAB PO PRN (14:32)
[2018-03-06] MEDS ORDERED: Vancomycin HCl 1 GM in Premix Bag 1 BAG IVPB SCH (14:45)
--- NOTE | 2018-03-06 16:08 | HP ---
PRIMARY CARE PHYSICIAN: Harper Otero MD. CHIEF COMPLAINT: Respiratory distress. HISTORY OF PRESENT ILLNESS: Ms. Rosas is a pleasant 87-year-old lady who was seen at [facility] on March 06, 2018, following transfer from [facility]. The patient is unable to provide any significant history. The patient's was in the room as well, and he was unable to provide any significant history either. I tried calling the patient's daughter, but the call was not answered. Collateral history was obtained from review of medical records and discussion with emergency room physician. Ms. Rosas was hospitalized at [facility] from February 10 to of last year for atrial fibrillation with rapid ventricular response. She was subsequently transferred for chcf at [facility]. The patient's reports that about 2 or 3 days ago, there was concern about hematuria and blood in the stool. He reports that a test may have been sent from the [facility]. He does not know the result of the test. EMS was called earlier today to [facility] because the patient had cough and respiratory distress. Her oxygen saturation was reported in the 70s and 80s on a non-rebreather mask. The patient denied any chest pain. She tells me that she has pneumonia, but is unable to elaborate regarding complaints. REVIEW OF SYSTEMS: All other systems reviewed and found to be negative. PAST MEDICAL HISTORY: Chronic atrial fibrillation, chronic low back pain, gastroesophageal reflux disease, moderate mitral and tricuspid regurgitation, right carotid stenosis. PAST SURGICAL HISTORY: Back surgery x6, right foot surgery, bilateral hand surgery, left and right ankle surgery, left shoulder surgery x2, appendectomy, hysterectomy, tonsillectomy, and spinal cord pain stimulator. PSYCHIATRIC HISTORY: Anxiety and depression. SOCIAL HISTORY: The patient is currently at [facility] for chcf. She denies any history of tobacco use, alcohol use, or recreational drug use. FAMILY HISTORY: Mother from congestive heart failure in her 80s. Father from congestive heart failure in his 80s as well. ALLERGIES: NO KNOWN DRUG ALLERGIES. CURRENT MEDICATIONS: 1. Morphine 30 mg every 8 hours as needed. 2. Aspirin 325 mg daily. 3. Lasix 40 mg daily. 4. Methocarbamol 750 mg daily. 5. Metoclopramide 5 mg daily. 6. Gabapentin 300 mg daily. 7. Rivaroxaban 20 mg daily. 8. [place] p.r.n. CODE STATUS: I discussed her code status. She is full code. PHYSICAL EXAMINATION: GENERAL: On examination, Ms. Rosas is sleepy, but arousable, not in acute distress. VITAL SIGNS: Blood pressure is 101/52, pulse 69, respiratory rate 18, and oxygen saturation 98% on 2 L of oxygen. She is afebrile. EYES: No scleral icterus. No conjunctival pallor. ENT: Moist mucosal membranes. No oropharyngeal erythema or exudates. NECK: Supple, nontender, trachea is midline. RESPIRATORY: Accessory muscles of breathing are not active. Chest wall movements are symmetric bilaterally. Lung examination reveals left basal crackles. CARDIOVASCULAR: S1 and S2 are heard, irregular. Peripheral pulses palpable. No pericardial rub. ABDOMEN: Soft, nontender, no hepatomegaly, no splenomegaly. NEUROLOGIC: Cranial nerves 2 through 12 intact. Deep tendon reflexes 2+. SKIN: No rashes or subcutaneous nodules. MUSCULOSKELETAL: Power is 5/5 in all 4 extremities. LYMPHATIC: No cervical lymphadenopathy. PSYCHIATRIC: The patient appears tired, oriented to person only, not to place or time. LABORATORY DATA: Ms. Rosas's labs and investigations were reviewed. I reviewed her electrocardiogram, which shows atrial fibrillation. Electrocardiogram does have electrical artifact. I also reviewed her chest x-ray, which shows left pleural effusion as well as left lower lobe infiltrate. She has elevated white count of 15,100 of which 84.9% are neutrophils, normocytic anemia with hemoglobin of 9.7, last known hemoglobin 9.0 on February 11, 2018, normal platelet count. Decreased sodium of 128, normal potassium, normal creatinine. Decreased albumin of 3.0, otherwise unremarkable liver profile and normal lactic acid level of 1.7. Arterial blood gases show pH 7.44, pCO2 of 34, and pO2 of 76 on 2 L of oxygen. ASSESSMENT AND PLAN: Ms. Rosas is a pleasant 87-year-old lady, who was seen at [facility] on March 06, 2018. Her problem list includes: 1. Sepsis: Ms. Rosas has leukocytosis. She also had respiratory rate of 22 when she presented to the emergency room. She meets the criteria for sepsis, suspected source of infection in the lung. She will be admitted to the hospital for further management. She has already received antibiotics, which I will continue. 2. Pneumonia: She has left lower lobe pneumonia. She has received vancomycin and Zosyn, which I will continue. Her oxygenation has improved since coming to the emergency room. We will continue to monitor. 3. Atrial fibrillation: We will resume Xarelto once confirmed. We will also request stool occult blood test as well as urinalysis, given family's concern about probable recent hematuria or gastrointestinal bleed. 4. Chronic pain: We will continue the patient's home medications once clarified. 5. Gastroesophageal reflux disease: Appears to be stable. Many thanks for allowing me to participate in your patient's care. Please feel free to contact me with any questions or concerns. LEVEL OF RISK: High. LEVEL OF COMPLEXITY: High. Job ID: [id number]
[2018-03-06] MEDS: Piperacillin/Tazobactam 4.5 GM in Sodium Chloride 0.9% 100 ML IVPB SCH (21:22)
[2018-03-06 21:55] LABS: Bilirubin Negative (Negative); Blood, Urine Large (Negative); Clarity TURBID (Clear); Glucose, Urine (Dipstick) Negative (Negative); Leukocyte Small (Negative); Nitrite Negative (Negative); Protein, Urine (Dipstick) 30 mg/dL (Neg-Trace); Specific Gravity, Urine 1.009 (1.002-1.036); Urobilinogen 0.2 mg/dL (0.2-1.0)
[2018-03-06 21:57] LABS: Bacteria/HPF None Seen HPF (None Seen); Hyaline Casts/LPF 0-3 HYALINE CAST LPF (0-3 Hyaline); Pathc Cast-AUWi Flag 0.29 (0-2.49); Squamous Epithelial 0-3 HPF (0-3); WBC/HPF 0-3 HPF (0-3)
[2018-03-06 22:08] LABS: Crystals/HPF 2+ AMORPH URATES HPF (Negative)
[2018-03-07] MEDS: Piperacillin/Tazobactam 4.5 GM in Sodium Chloride 0.9% 100 ML IVPB SCH ×3 (05:27→22:16)
[2018-03-07 06:16] LABS: #Lymphocytes 0.5 thou/uL (1.20-3.40); #Monocytes 0.1 thou/uL (0.11-0.59); #Neutrophils 6.4 thou/uL (1.40-6.50); %Basophils 0.4 % (0.0-1.0); %Lymphocytes 6.8 % (21.0-51.0); %Monocytes 1.9 % (0.0-10.0); %Neutrophils 90.9 % (42.0-75.0); Hemoglobin 9.4 g/dL (12.0-16.0); Mean Corpuscular HGB CONC 31.8 g/dL (32.0-36.0); Mean Corpuscular Hemoglobin 26.4 pg (27.0-31.0); Mean Corpuscular Volume 82.9 fL (78.0-98.0); Mean Platelet Volume 8.1 fL (7.4-10.4); Platelet Count 329 thou/uL (130-400); RBC Distribution Width 14.2 % (11.5-14.5); Red Blood Cell (RBC) Count 3.54 mill/uL (4.20-5.40); White Blood Cell (WBC) Count 7.1 thou/uL (4.8-10.8)
[2018-03-07 06:35] LABS: Anion Gap 15 mmol/L (10-20); BUN (Urea Nitrogen) 16 mg/dL (9.8-20.1); Calc. Creatinine Clearance 71 mL/min (70-130); Calcium 8.6 mg/dL (7.8-10.44); Carbon Dioxide 22 mmol/L (23-31); Chloride 94 mmol/L (98-107); Estimated GFR-MDRD 78; Glucose 177 mg/dL (83-110); Potassium 4.1 mmol/L (3.5-5.1); Sodium 127 mmol/L (136-145)
[2018-03-07] MEDS: Acetaminophen 325 MG TAB PO PRN (07:43)
[2018-03-07] MEDS ORDERED: Senokot 8.6 MG TAB PO PRN (10:37)
[2018-03-07] MEDS: Ondansetron PF 4 MG/2 ML Vial SLOW IVP PRN ×2 (11:31→19:53)
--- NOTE | 2018-03-07 11:35 | PRG ---
DATE OF SERVICE: 03/07/2018 SUBJECTIVE: The patient is seen and examined at the bedside. She complains about abdominal pain. She had some nausea. She did not vomit. She had bowel movements yesterday, but she cannot eat anything because of the abdominal pain, which is continuous. OBJECTIVE: VITAL SIGNS: Blood pressure is 116/55, pulse is 93, temperature 97.6, respiration is 18, and O2 saturation is 92% on 2 L by nasal cannula. HEENT: Her head is atraumatic and normocephalic. She has facial droop. Her oral mucosa is slightly dry. NECK: Supple. LUNGS: Breath sounds diminished at the left base. Few crackles at the left base. No wheezing. HEART: S1 and S2, normal. No S3. No S4. ABDOMEN: Mildly distended. Tender to palpation all over. No guarding. No masses. EXTREMITIES: No clubbing or cyanosis. There is 1+ peripheral edema similar bilaterally on [id number], both lower extremities. NEUROLOGICAL: She follows my commands. She is able to answer my questions properly. She moves her all four extremities. LABORATORY DATA: Labs showed white count of 7.1, hemoglobin 9.4, hematocrit 29.4, platelet count 329,000. Sodium of 127, potassium 4.1, chloride 94, CO2 of 22, glucose 177, calcium 8.6. Microbiology: Occult blood on her stool is negative. Blood cultures no growth. Influenza type A and B, direct EIA, final negative. IMPRESSION: 1. Sepsis. Her leukocytosis is down. Cultures on her blood came back negative, preliminary. 2. She is treated as HCAP with vancomycin and Zosyn. 3. Abdominal pain of unclear etiology. 4. Atrial fibrillation with controlled ventricular rate. 5. Hematuria. Xarelto is on hold. Aspirin is on hold. We will obtain Urology consultation with Dr. Valle, who is education administrative assistant today. 6. Chronic pain. We will continue her on her morphine. 7. Hyponatremia, hypochloremia. We will give her some normal saline today 100 mL/h and hold her diuretic, and we will obtain CT of the chest and abdomen with and without contrast for further diagnostic workup. We will continue both antibiotics. Job ID: [id number]
[2018-03-07] MEDS ORDERED: Vancomycin HCl 1.25 GM in Sodium Chloride 0.9% 250 ML 250 ML IVPB SCH (13:00)
--- NOTE | 2018-03-07 14:53 | PQF ---
CHULA SERNA ZBIGNIEW A MD [id number] [facility] [id number] CLINICAL DOCUMENTATION IMPROVEMENT CLARIFICATION FORM: ICD-10 Updated PLEASE DO AN ADDENDUM TO THE PROGRESS NOTE WITH ANY DOCUMENTATION UPDATES OR ADDITIONS AND CARRY THROUGH TO DC SUMMARY. THANK YOU. DATE: ATTN : DR. Shena MACKEY Please exercise your independent, professional judgment in responding to the clarification form. Clinical indicators are provided on the bottom of this form for your review. Please check appropriate box(s): I (concur) with the Nursing Admission Skin Assessment findings as stated below. [ ] Pressure Ulcer: (Stage I: Erythema; Stage II: Partial thickness; Stage III : Full thickness; Stage IV: Necrosis to muscle/bone) [ ] Location: POA: [ ] Yes [ ] No[ ] Unable to determine Stage (I to IV): ____II___ (Left Right Bilateral N/A ) [ ] Location: POA: [ ] Yes [ ] No[ ] Unable to determine Stage (I to IV): ____II___ (Left Right Bilateral N/A ) [ ] Location: [facility] POA: [ ] Yes [ ] No[ ] Unable to determine Stage (I to IV): (Left Right Bilateral N/A__II___) [ ] No pressure ulcer diagnosis [ ] Other diagnosis [ ] Unable to determine In addition, please specify: Present on Admission (POA): [ X] Yes [ ] No [ ] Unable to determine For continuity of documentation, please document condition throughout progress notes and discharge summary. Thank You. CLINICAL INDICATORS - SIGNS / SYMPTOMS / LABS NURSING ADM SKIN ASSMT: STAGE II PRESSURE ULCER L HEEL, STAGE II PRESSURE ULCER R HEEL, STAGE II PRESSURE ULCER SACROCOCCYGEAL RISK FACTORS: ADVANCED AGE (87) SEPSIS TREATMENTS: WAFFLE MATTRESS TURN Q2 HRS FLOAT HEELS THANK YOU! Ashleigh (This form is maintained as a part of the permanent medical record) 2015 [employer]. All Rights Reserved Ashleigh Post RN, BSN [email or web address] Office: [phone] [facility] CLINICDeejay
[2018-03-07] MEDS: 1/2 NS w/KCL 20 mEq 1,000 ML IV SCH (15:29)
--- NOTE | 2018-03-07 15:41 | CT ---
CHEST CT WITH CONTRAST ABDOMEN CT WITH CONTRAST PELVIC CT WITH CONTRAST 03/07/18 COMPARISON: CT abdomen and pelvis 10/15/12, CT angiogram of the chest 06/12/17. HISTORY: Sepsis. Weakness. Pain. FINDINGS: CHEST CT: There is no mediastinal mass, lymphadenopathy or hematoma. Heart is enlarged. There is a small amount of pericardial fluid. The thoracic aorta and abdominal aorta have a normal caliber. No periaortic fa t stranding. There are bilateral moderate pleural effusions with adjacent lung parenchymal consolidat ion likely due to atelectasis. Pneumonia or aspiration cannot be excluded. There is fluid along the l eft major fissure. Patchy ground glass opacities in the left and right lung apex. Chronic changes in the left lung apex are noted. Trachea and central bronchi are patent. Stable calcified lymph node in the prevascular space. Note is made of a moderate hiatal hernia. ABDOMEN AND PELVIS CT: Unremarkable gallbladder bladder. Portal vein is patent. The liver, spleen, pancreas, and adrenal gla nds have appropriate enhancement. Note, there is significant pancreatic atrophy. There is symmetric e nhancement of the kidneys. There is an exophytic cyst emanating from the lower pole of the left kidne y measuring 6.0 x 5.6 cm with attenuation coefficient of 12.4 Hounsfield units. No evidence of left s ided obstructive uropathy. There is moderate to severe right sided obstructive uropathy with dilatati on of the right intrarenal collecting system, right pelvis, and dilatation of proximal right ureter. There are no obstructing calculi or masses appreciated. Retrograde IVP may be beneficial. There is no gastrohepatic, retrocrural or periportal lymphadenopathy. There is no mesenteric mass, ly mphadenopathy, free air, or free fluid. Gastric mucosa is unremarkable. Multiple normal caliber small bowel loops. Ileocecal junction is normal. There is a copious amount of fecal material throughout th e entire colon. No evidence of a distal obstructing mass. Correlate clinically for constipation. CT PELVIS: No mass, lymphadenopathy, free air or free fluid. Unremarkable urinary bladder. There are postsurgica l changes in the lumbar spine. Dorsal column stimulator is noted. IMPRESSION: 1. Moderate bilateral effusion with adjacent consolidation due to atelectasis, pneumonia, or asp iration. 2. Severe right sided hydronephrosis and proximal hydroureter without associated obstructing ure teral calculus. Retrograde IVP is recommended. 3. Copious fecal material throughout the entire colon. Correlate clinically for constipation. Results of the study discussed with Sita, patient's nurse, 03/07/18 at 2:48 p.m. Code MATT POS: DENISE
[2018-03-07] MEDS: Morphine ER 15 MG TAB PO SCH ×2 (16:06→22:16)
[2018-03-07] MEDS: Methocarbamol 500 MG TAB PO SCH ×2 (16:06→22:16)
[2018-03-07] MEDS ORDERED: Iopamidol 370 76% 100 ML VIAL ONE (17:02)
[2018-03-07] MEDS ORDERED: PROSTAT PO SCH (21:00)
[2018-03-07] MEDS: Gabapentin 300 MG CAP PO SCH (22:16)
[2018-03-07] MEDS: Oxybutynin 5 MG TAB PO SCH (22:16)
[2018-03-07] MEDS: Metoprolol Tartrate 50 MG TAB PO SCH (22:17)
--- NOTE | 2018-03-08 00:23 | CON ---
DATE OF CONSULTATION: 03/07/2018 HISTORY OF PRESENT ILLNESS: This is an 87-year-old female, who was transferred here from [facility] yesterday with pneumonia. I was asked to see her because of hematuria. On talking with the nurses, they stated that the urine has been discolored and she has been voiding in a diaper. Looking at her urinalysis, she has a 11 to 20 red cells, 2+ crystals, 0 to 3 white cells, no bacteria. Culture was not done. She did have cultures done of her stool and her blood, which have come back negative. She was felt to have a pneumonia based on her chest x-ray. She did end up having a CAT scan done today because she was complaining of abdominal pain and this does show a CAT scan. A right hydronephrotic kidney and that is fairly significant, renal pelvis dilatation that was mild and some caliectasis. The renal cortex is well maintained and it was actually contrast. Getting into the renal cortex, it looks like it maybe in the proximal ureter/UPJ region. Her creatinine is normal at 0.7, or the kidney looks normal apart from the cyst. She had a mildly elevated white count of 15.1 when she came in. Yesterday and today, it is 7.1. She is piperacillin/tazobactam and vancomycin for pneumonia. She is also on oxybutynin and this I believe the medicine she came in with. She takes chronic morphine for back pain. While talking with the nurse today, she says that she is unsure if she has actually had gross hematuria. She has seen one diaper that showed discolored urine and she is not sure about her abdominal pain that may just be back pain that she has been having. The patient really cannot give any history and there is no one here to help with her history. Reviewed her history and physical by Dr. Smith and it looks like he got most of it from prior charts, but she does have chronic atrial fib, chronic low back pain, reflux disease, some mitral tricuspid regurgitation, carotid stenosis. She has had back surgery six times. She has had right foot surgery. She has had hand surgery. She has had ankle surgery on both sides and left shoulder surgery twice, appendectomy, hysterectomy, tonsillectomy. She had a spinal cord stimulator in. ALLERGIES: SHE HAS NO KNOWN DRUG ALLERGIES. MEDICATIONS: Current medications were morphine, aspirin, Lasix, gabapentin, and [place] p.r.n. PHYSICAL EXAMINATION: GENERAL: On examination, she does not have flank tenderness. ABDOMEN: Soft and nontender on exam right now. There is no rebound. There is no guarding. IMPRESSION: Possible hematuria, which is microscopic most although I am going to have the nurse to do in- and out catheterization and get a urinalysis from that and we will see what that shows. She does have this right hydro, which my guess is probably not an acute process, but probably a chronic process and is probably non obstructive. I will look possibly doing a Lasix renal scan on her maybe on Saturday or Saturday. I do not know that will pruitt in at her age and with her mental status to be doing a retrograde on her at this time short of something changing clinically. Job ID: [id number]
[2018-03-08] MEDS: Piperacillin/Tazobactam 4.5 GM in Sodium Chloride 0.9% 100 ML IVPB SCH (06:02)
[2018-03-08] MEDS: Morphine ER 15 MG TAB PO SCH ×3 (06:02→21:26)
[2018-03-08] MEDS: Methocarbamol 500 MG TAB PO SCH ×3 (06:03→21:26)
[2018-03-08] MEDS ORDERED: Furosemide 20 MG TAB PO SCH (09:00)
[2018-03-08] MEDS: Metoprolol Tartrate 50 MG TAB PO SCH ×2 (09:41→21:27)
[2018-03-08] MEDS: Potassium Chloride 10 MEQ TAB PO SCH (09:41)
[2018-03-08] MEDS: Zinc Sulfate 220 MG CAP PO SCH (09:41)
[2018-03-08] MEDS: Polyethylene Glycol 3350 17 GM Packet PO SCH (09:42)
[2018-03-08] MEDS: Ondansetron PF 4 MG/2 ML Vial SLOW IVP PRN (09:43)
[2018-03-08] MEDS: 1/2 NS w/KCL 20 mEq 1,000 ML IV SCH (09:52)
[2018-03-08] MEDS ORDERED: Pantoprazole 40 MG VIAL IVP SCH (12:30)
--- NOTE | 2018-03-08 12:54 | PRG ---
DATE OF SERVICE: 03/08/2018 SUBJECTIVE: The patient is seen and examined at bedside. The patient had two family members present in the room during my visit. She still has some abdominal pain and some nausea, on and off. She was able to eat some breakfast today, but she vomited last night. OBJECTIVE: VITAL SIGNS: Blood pressure is 107/56, pulse is 99, temperature 97.7, respiratory rate is 20, O2 saturation is 94% on 2 L by nasal cannula. HEENT: Head is atraumatic and normocephalic. Pupils are responding to light properly. Sclerae nonicteric. Conjunctivae palish. Oral mucosa is moist. NECK: Supple. LUNGS: Breath sounds diminished significantly at both bases. HEART: S1 and S2, irregularly irregular. No S3. No S4. ABDOMEN: Soft, although tender on deeper palpation in the epigastric area on both sides and in the center. Bowel sounds are present. No organomegaly. EXTREMITIES: No clubbing, cyanosis, or edema. NEUROLOGICAL: She follows my commands. She moves her all four extremities. There is no any motor deficit. LABORATORY DATA: Fecal occult blood test is negative. Blood cultures negative x2. IMPRESSION: 1. Sepsis with improved leukocytosis and negative blood cultures so far. We will switch her to levofloxacin. 2. HCAP switched to levofloxacin today. 3. Bilateral pleural effusion, most likely congestive heart failure. We will stop IV fluids. Start her on IV Lasix 40 every 12 hours. We will get cardiology consult and echocardiogram. 4. Atrial fibrillation with controlled ventricular rate. Her antiplatelets were stopped because of the bleeding. Urology saw the patient. We are going to obtain a cathed urine specimen and check for hematuria. 5. Right hydronephrosis, suspected to be chronic, because her kidney function is still quite good. 6. Abdominal pain with some nausea and vomiting. I suspect that maybe she has PUD. I am going to start her on Protonix 40 mg IV piggyback every 24 hours. 7. Hyponatremia and hypochloremia. We will check her BMP this morning. 8. Anorexia, most likely related to her abdominal pain and nausea. PLAN: Plan is to switch her to IV levofloxacin. Start her on Protonix. Obtain echo, Cardiology consultation. Start IV Lasix. Stop IV fluids. Obtain urine specimen by catheterization and check for hematuria. Job ID: [id number]
[2018-03-08] MEDS ORDERED: Rivaroxaban 10 MG TAB PO SCH (13:00)
[2018-03-08] MEDS: Furosemide 40 MG/4 ML VIAL SLOW IVP SCH (13:34)
[2018-03-08 15:25] LABS: Vancomycin, Trough 9.3 ug/mL
[2018-03-08] MEDS ORDERED: Vancomycin HCl 1.25 GM in Sodium Chloride 0.9% 250 ML 250 ML IVPB SCH (16:00)
[2018-03-08] MEDS: Oxybutynin 5 MG TAB PO SCH (21:27)
[2018-03-08] MEDS: Gabapentin 300 MG CAP PO SCH (21:27)
--- NOTE | 2018-03-09 03:46 | CON ---
DATE OF CONSULTATION: 03/08/2018 INDICATION FOR CONSULTATION: An 87-year-old female who was admitted with pneumonia, confusion, hematuria, and has a history of atrial fibrillation. We are asked to see her due to the atrial fibrillation. She has chronic atrial fibrillation. She has been followed by Dr. John in the past. She has had no complaints. However, the lady is demented and very little history can be obtained from the patient. At this time, she is relatively comfortable. Her EKGs from the chart and from the monitor show that she is in atrial fibrillation, but the rate has been well controlled. I do not see any significant tachycardia associated with the atrial fibrillation. She denies any other cardiac complaints such as chest pain or any other significant abnormalities. She had cardiac enzymes obtained. Troponin I was normal. There is no indication of any ischemia on the EKGs and no indication the patient has suffered any myocardial infarction. Her BNP was only mildly elevated at 326, somehow with only mild congestive heart failure symptoms, which would not be unusual in someone of 87 years old who most likely has diastolic dysfunction or associated with the atrial fibrillation. She has no complaints at this time. PAST MEDICAL HISTORY: Significant for atrial fibrillation, dementia. She had a history of carotid artery stenosis in the past and gastroesophageal reflux disease. PAST SURGICAL HISTORY: She has had back surgery, foot surgery, hand surgery, shoulder surgery, and ankle surgery. SOCIAL HISTORY: She has no history of alcohol or tobacco abuse. REVIEW OF SYSTEMS: Not obtainable to any accuracy. ALLERGIES: NONE. PRESENT MEDICATIONS: Her medications prior to admission included; 1. Omeprazole. 2. MS Contin. 3. Xarelto. 4. Lasix. 5. Gabapentin. 6. Metoclopramide. 7. Robaxin. 8. Potassium. 9. Aspirin 81 mg a day. 10. Lipitor. 11. Diltiazem. 12. Lopressor. 13. DuoNebs. 14. Zofran. 15. P.r.n. medications. 16. Also, Lasix 20 mg a day. ALLERGIES: NONE. FAMILY HISTORY: Noncontributory. PHYSICAL EXAMINATION: GENERAL: Reveals an elderly female, who is at least alert, was arousable easily from sleep, and knows her name. She is complaining of being cold at this time, otherwise is unremarkable. She knows where she is. When asked why she came to the hospital, she said she want to make sure whether or not she had pneumonia, but otherwise has denied any significant shortness of breath or chest pain. VITAL SIGNS: Blood pressure 108/58. She is afebrile. Respiratory rate is 18, heart rate is anywhere between 97 to 114 with atrial fibrillation. HEENT: Reveals head to be normocephalic and atraumatic. I did not hear any significant bruits. There is no obvious JVD. CHEST: Her chest has occasional rhonchi. She has decreased inspiratory effort. I did not hear any wheezing. CARDIOVASCULAR: Reveals an irregularly irregular rhythm. I do not hear any significant murmurs. ABDOMEN: Soft and nontender. Positive bowel sounds are present. EXTREMITIES: No clubbing, cyanosis, or edema. NEUROLOGIC: The patient appears to be confused at least, but most likely this is just due to dementia. SKIN: Warm and dry. LABORATORY DATA: Noted for the normal cardiac enzymes and also sodium was 127, bicarb is 22, blood sugar was 177. WBC is 7.1, hemoglobin is 9.4, platelet count was 329,000. BNP was 324. Her cholesterol level last was done in February 2018 which showed LDL of 81. IMPRESSION: 1. Elderly female with most likely pneumonia. She will be continued on her medications with the antibiotics. 2. History of chronic atrial fibrillation. The rate is under reasonable control majority of the time. We will continue these medications also for her atrial fibrillation and she is on metoprolol for rate control. We will continue also Xarelto unless she has any problems with bleeding. 3. Dementia versus mental status changes. I have not seen this lady in the past and this may be her baseline. This will be dealt with by the primary care service. 4. Some history of hematuria. I believe, she has been already seen by the urologist. At this time, overall cardiac status appears to be relatively stable. Job ID: [id number]
[2018-03-09] MEDS: Furosemide 40 MG/4 ML VIAL SLOW IVP SCH ×2 (06:26→14:27)
[2018-03-09] MEDS: Methocarbamol 500 MG TAB PO SCH ×3 (06:26→20:00)
[2018-03-09] MEDS: Morphine ER 15 MG TAB PO SCH ×3 (06:29→21:45)
[2018-03-09] MEDS: Metoprolol Tartrate 50 MG TAB PO SCH (08:19)
[2018-03-09] MEDS: Zinc Sulfate 220 MG CAP PO SCH (08:19)
[2018-03-09] MEDS: Rivaroxaban 10 MG TAB PO SCH (08:19)
[2018-03-09] MEDS: Potassium Chloride 10 MEQ TAB PO SCH (08:19)
[2018-03-09] MEDS: Polyethylene Glycol 3350 17 GM Packet PO SCH (08:33)
[2018-03-09] MEDS ORDERED: Pantoprazole 40 MG VIAL IVP SCH (09:00)
--- NOTE | 2018-03-09 12:21 | PRG ---
DATE OF SERVICE: 03/09/2018 SUBJECTIVE: The patient is seen and examined at the bedside. She is feeling better. She ate breakfast. Her abdominal pain improved. OBJECTIVE: VITAL SIGNS: Blood pressure is 109/71, pulse is 90, respirations 18, O2 saturation is 93% on 2 L by nasal cannula, temperature is 97.7. HEENT: Head is atraumatic and normocephalic. Eyes are PERRLA. Sclerae are nonicteric. Oral mucosa is somewhat dry. NECK: Supple. LUNGS: Breath sounds diminished at both bases with some evidence of pleural effusion bilaterally and dullness on percussion in the lower parts of both lungs. HEART: S1 and S2. Irregularly irregular. No S3. No S4. ABDOMEN: Soft, nontender. Bowel sounds are present. No organomegaly. EXTREMITIES: No clubbing, cyanosis, or edema. NEUROLOGIC: She answers my questions quite properly, although there is some mental disturbance. She moves her all 4 extremities. There is no any motor deficits. LABORATORY DATA: None today. IMPRESSION: 1. Pneumonia, which is treated as healthcare associated, on levofloxacin to continue. 2. Sepsis with improved leukocytosis. Negative blood cultures. 3. Bilateral pleural effusion. The patient was seen by reservation sales agent, Dr. Tolentino, who thinks that her bilateral pleural effusion is related to her pneumonia. 4. Atrial fibrillation with controlled ventricular rate. 5. Right hydronephrosis, suspected to be chronic since her kidney function is quite good. We are not planning to do any heroic measures with her. 6. Abdominal pain with nausea and vomiting, resolved on Protonix. We will switch her to p.o. daily dose of 40 mg of Protonix. 7. Hyponatremia and hypochloremia. We will check BMP today, but I think it is related to her fluid overload and possible congestive heart failure. 8. Anorexia, improved. PLAN: Plan is to switch her to p.o. Protonix. Continue levofloxacin. Continue PT. Continue Lasix. Job ID: [id number]
[2018-03-09 13:45] LABS: Anion Gap 13 mmol/L (10-20); BUN (Urea Nitrogen) 9 mg/dL (9.8-20.1); Calc. Creatinine Clearance 70 mL/min (70-130); Calcium 8.3 mg/dL (7.8-10.44); Carbon Dioxide 29 mmol/L (23-31); Chloride 93 mmol/L (98-107); Estimated GFR-MDRD 77; Glucose 121 mg/dL (83-110); Potassium 3.8 mmol/L (3.5-5.1); Sodium 131 mmol/L (136-145)
--- NOTE | 2018-03-09 16:45 | PDOC.CTH ---
Cardiology Progress Note - Subjective The pt seen and examined. No overnight events. No cardiac complaints. She complains of dry month. She was instructed to cut down fluid intakes and have ice instead. - Objective Vital Signs Temp Pulse Pulse Pulse Resp BP BP 03/09/18 15:20 87 107 H 108/57 L 101/56 L 03/09/18 14:35 80 20 03/09/18 12:00 97.6 F 88 18 03/09/18 10:53 88 24 H 03/09/18 08:30 03/09/18 07:21 97.7 F 90 18 03/09/18 06:34 03/09/18 06:29 95 20 BP Pulse Ox 03/09/18 15:20 03/09/18 14:35 03/09/18 12:00 105/58 L 98 03/09/18 10:53 03/09/18 08:30 94 L 03/09/18 07:21 109/71 93 L 03/09/18 06:34 95 03/09/18 06:29 99 Admit Weight 173 lb 6.4 oz Weight 173 lb 6.4 oz 03/08/18 03/09/18 03/10/18 06:59 06:59 06:59 Intake Total 1871 1340 Output Total 1320 900 Balance 551 440 - Physical Examination General/Neuro: other: (comfused) Neck: no JVD present Lungs: other: (diminished at bases, Lt>Rt) Heart: other: (irregular) Abdomen: soft Extremities: other: (mild anasarca) - Telemetry Telemetry Rhythm: Afib 80s - Labs Result Diagrams: 03/07/18 05:25 03/09/18 13:13 Troponin/CKMB Troponin I Less than 0.010 ng/mL (< 0.028) 03/06/18 11:35 - Assessment/Plan 1. PNA - on IV abx; managed by pcp 2. Acute on Diastolic HF with large lt pleural effusion - Stable with Lasix 40mg IV BID and Metoprolol 50mg BID, which decrease to 25mg BID and start Lisinopril 10mg qd. 3. Afib - well controlled HR with Diltiazem and bblocker. On Xarelto. 4. HTN - stable 5. Dementia 6. Severe MR/TR - MAR reviewed * Echo on 03/09/2018 showed EF 50-55%, grade III diastolic dysfunction, severe MR, severe TR and large Lt pleural effusion. * Dr John's pt Pt. seen and eval. by me. I agree with the A/P by the [employer]. Chest decr. bases. irreg., No edema. Review of Systems - Review of Systems Constitutional: reports: no symptoms reported EENTM: reports: no symptoms reported Respiratory: reports: no symptoms reported Cardiac (ROS): reports: no symptoms reported ABD/GI: reports: no symptoms reported : reports: no symptoms reported Musculoskeletal: reports: no symptoms reported
[2018-03-09] MEDS: Metoprolol Tartrate 25 MG TAB PO SCH (20:00)
[2018-03-09] MEDS: Oxybutynin 5 MG TAB PO SCH (20:00)
[2018-03-09] MEDS: Gabapentin 300 MG CAP PO SCH (20:00)
[2018-03-10] MEDS: Furosemide 40 MG/4 ML VIAL SLOW IVP SCH ×2 (05:58→13:31)
[2018-03-10] MEDS: Methocarbamol 500 MG TAB PO SCH ×3 (06:04→21:13)
[2018-03-10] MEDS: Morphine ER 15 MG TAB PO SCH ×2 (06:04→13:31)
[2018-03-10] MEDS ORDERED: Lisinopril 10 MG TAB PO SCH (09:00)
[2018-03-10] MEDS: Rivaroxaban 10 MG TAB PO SCH (09:00)
[2018-03-10] MEDS: Potassium Chloride 10 MEQ TAB PO SCH (09:01)
[2018-03-10] MEDS: Metoprolol Tartrate 25 MG TAB PO SCH (09:01)
[2018-03-10] MEDS: traMADol HCl 50 MG TAB PO PRN (09:01)
[2018-03-10] MEDS: Polyethylene Glycol 3350 17 GM Packet PO SCH (09:03)
[2018-03-10] MEDS: Zinc Sulfate 220 MG CAP PO SCH (09:09)
--- NOTE | 2018-03-10 13:28 | PRG ---
DATE OF SERVICE: 03/10/2018 SUBJECTIVE: The patient was seen and examined at bedside. The nurse noticed that she started having some rash kind of generalized all over her body, which is a non-itching. OBJECTIVE: VITAL SIGNS: Blood pressure is 113/53, pulse is 98, respiratory rate 20, O2 saturation is 100% on 3 L by nasal cannula, temperature is 97.7, maximal temperature is 98.1. HEENT: Her head is atraumatic and normocephalic. Sclerae are nonicteric. Oral mucosa is moist. NECK: Supple. LUNGS: Breath sounds somewhat diminished at both bases and few crackles bilaterally. HEART: S1 and S2, irregularly irregular. No S3. No S4. ABDOMEN: Soft, nontender, and nondistended. EXTREMITIES: No clubbing, cyanosis, or edema. NEUROLOGIC: She is alert and oriented x3. There is no any motor deficits. I do not see any cranial nerve problems. LABORATORY DATA: No labs today. IMPRESSION: 1. Pneumonia, treated as healthcare associated pneumonia, on levofloxacin, to continue. 2. Sepsis with improved leukocytosis. Negative blood cultures. 3. Bilateral pleural effusion secondary to congestive heart failure. The patient had echocardiogram done, which showed ejection fraction of the left ventricle estimated at 50% to 55%. Restrictive filling pattern. Mildly enlarged right ventricle cavity. Left atrium moderately dilated. Right atrium moderately enlarged. Severe mitral regurgitation. Severe tricuspid regurgitation, large left pleural effusion, atrial fibrillation with controlled ventricular rate. 4. Right hydronephrosis, most likely chronic. We are not planning to do anything about this. 5. Abdominal pain with nausea and vomiting, resolved on PPI. The patient is started eating much better. 6. Hyponatremia and hypochloremia, improved, most likely related to congestive heart failure. 7. Anorexia, improved. PLAN: Plan is to continue diuresis. Continue Protonix p.o. Continue levofloxacin. Continue PT. Obtain BMP. Job ID: [id number]
[2018-03-10] MEDS: Oxybutynin 5 MG TAB PO SCH (21:13)
[2018-03-10] MEDS: Acetaminophen 325 MG TAB PO PRN (21:13)
[2018-03-10] MEDS: Gabapentin 300 MG CAP PO SCH (21:13)
[2018-03-11 05:46] LABS: #Basophils 0.1 thou/uL (0.0-0.2); #Eosinphils 0.3 thou/uL (0.0-0.7); #Lymphocytes 1.1 thou/uL (1.20-3.40); #Monocytes 0.5 thou/uL (0.11-0.59); #Neutrophils 5.8 thou/uL (1.40-6.50); %Lymphocytes 13.9 % (21.0-51.0); %Neutrophils 75.1 % (42.0-75.0); Hemoglobin 9.4 g/dL (12.0-16.0); Mean Corpuscular HGB CONC 31.6 g/dL (32.0-36.0); Mean Corpuscular Volume 82.3 fL (78.0-98.0); Mean Platelet Volume 7.9 fL (7.4-10.4); Platelet Count 392 thou/uL (130-400); RBC Distribution Width 14.2 % (11.5-14.5); Red Blood Cell (RBC) Count 3.63 mill/uL (4.20-5.40); White Blood Cell (WBC) Count 7.8 thou/uL (4.8-10.8)
[2018-03-11 06:09] LABS: Anion Gap 11 mmol/L (10-20); BUN (Urea Nitrogen) 9 mg/dL (9.8-20.1); Calc. Creatinine Clearance 61 mL/min (70-130); Calcium 8.1 mg/dL (7.8-10.44); Carbon Dioxide 28 mmol/L (23-31); Chloride 92 mmol/L (98-107); Estimated GFR-MDRD 68; Glucose 123 mg/dL (83-110); Potassium 3.4 mmol/L (3.5-5.1); Sodium 128 mmol/L (136-145)
[2018-03-11] MEDS: Methocarbamol 500 MG TAB PO SCH ×3 (06:39→21:16)
[2018-03-11] MEDS ORDERED: Rivaroxaban 10 MG TAB ONE (08:27)
[2018-03-11] MEDS: Potassium Chloride 10 MEQ TAB PO SCH (09:13)
[2018-03-11] MEDS: Polyethylene Glycol 3350 17 GM Packet PO SCH (09:15)
[2018-03-11] MEDS: Rivaroxaban 10 MG TAB PO SCH (09:15)
[2018-03-11] MEDS: traMADol HCl 50 MG TAB PO PRN ×2 (09:19→21:23)
[2018-03-11] MEDS: Zinc Sulfate 220 MG CAP PO SCH (09:19)
[2018-03-11] MEDS ORDERED: HYDROcodone/Acetaminophen 10/325 mg Tablet PO SCH (16:30)
--- NOTE | 2018-03-11 21:12 | PDOC.PN ---
- Subjective Encounter Start Date: 03/11/18 Encounter Start Time: 18:00 Diffuse rash present overlying torso. First noted 03/10. Non pruritic. At the time of my evaluation, patient is confused and agitated, unable to provide history. - Objective Resuscitation Status - Order Detail: 03/06/18 14:32 Resuscitation Status Routine Resuscitation Status: FULL: Full Resuscitation Discussed with: patient and Vital Signs & Weight: Vital Signs (12 hours) Temp Pulse Resp BP Pulse Ox 03/11/18 18:58 104 H 22 H 03/11/18 15:24 97.6 F 19 95/50 L 97 03/11/18 14:27 110 H 18 03/11/18 11:33 97.9 F 98 14 96/52 L 100 03/11/18 10:54 100 18 Weight Admit Weight 173 lb 6.4 oz Weight 168 lb 6.4 oz I&O: 03/10/18 03/11/18 03/12/18 06:59 06:59 06:59 Intake Total 1560 680 820 Output Total 1200 850 550 Balance 360 -170 270 Result Diagrams: 03/11/18 05:09 03/11/18 05:09 Phys Exam - Physical Examination Elderly, frail, agitated HEENT: oral pharynx no lesions Neck: supple, full ROM Fair aeration Cardiovascular: irregular Gastrointestinal: soft, non-tender Musculoskeletal: no edema Neurological: moves all 4 limbs Deviation from normal: Not oriented to time or place Deviation from normal: Macular rash torso diffusely Dx/Plan (1) Pneumonia Code(s): J18.9 - PNEUMONIA, UNSPECIFIED ORGANISM Status: Acute Comment: Blood cultures negative. New rash, consistent with drug rash, worried about levaquin or protonix as potential new meds. Changed abx to doxycycline (2) Severe mitral regurgitation Code(s): I34.0 - NONRHEUMATIC MITRAL (VALVE) INSUFFICIENCY Status: Chronic Comment: Significant comorbidity (3) Severe tricuspid regurgitation Code(s): I07.1 - RHEUMATIC TRICUSPID INSUFFICIENCY Status: Chronic (4) Hydronephrosis, right Code(s): N13.30 - UNSPECIFIED HYDRONEPHROSIS Status: Acute Comment: Likely chronic, no additional evaluation planned (5) Acute on chronic diastolic CHF (congestive heart failure) Code(s): I50.33 - ACUTE ON CHRONIC DIASTOLIC (CONGESTIVE) HEART FAILURE Status : Acute Comment: EF 50-55%. Patient unable to tolerate lisinopril --> developed hypotension. Unknown if rash also possibly related. (6) Dementia Code(s): F03.90 - UNSPECIFIED DEMENTIA WITHOUT BEHAVIORAL DISTURBANCE Status: Chronic (7) Atrial fibrillation Code(s): I48.91 - UNSPECIFIED ATRIAL FIBRILLATION Status: Chronic Qualifiers: Atrial fibrillation type: paroxysmal Qualified Code(s): I48.0 - Paroxysmal atrial fibrillation Comment: Continue xarelto. She has been on diltiazen and metoprolol on home med list, but presently not receiving due to hypotension (8) Hyponatremia Code(s): E87.1 - HYPO-OSMOLALITY AND HYPONATREMIA Status: Chronic (9) Recurrent left pleural effusion Code(s): J90 - PLEURAL EFFUSION, NOT ELSEWHERE CLASSIFIED Status: Acute - Plan * Patient is eating poorly. Stopped protonix to simplify medication list in setting of drug rash. Multiple medical comorbidities with guarded prognosis. Reviewed SW note this evening, may return to [facility] when stable enough to do so. I did not have opportunity to speak with her family today, and am unsure of their expectations. Medical record indicates previous providers spoke with family and full code status communicated.
[2018-03-11] MEDS: Oxybutynin 5 MG TAB PO SCH (21:16)
[2018-03-11] MEDS: Gabapentin 300 MG CAP PO SCH (21:16)
[2018-03-12] MEDS: Methocarbamol 500 MG TAB PO SCH ×3 (05:45→20:27)
[2018-03-12] MEDS: Zinc Sulfate 220 MG CAP PO SCH (08:02)
[2018-03-12] MEDS: Rivaroxaban 10 MG TAB PO SCH (08:02)
[2018-03-12] MEDS: Potassium Chloride 10 MEQ TAB PO SCH (08:03)
[2018-03-12] MEDS: Polyethylene Glycol 3350 17 GM Packet PO SCH (08:03)
[2018-03-12] MEDS: Doxycycline 100 MG CAP PO SCH ×2 (08:03→20:21)
[2018-03-12] MEDS: traMADol HCl 50 MG TAB PO PRN ×2 (08:53→20:26)
[2018-03-12] MEDS: Ondansetron PF 4 MG/2 ML Vial SLOW IVP PRN ×2 (12:13→17:47)
[2018-03-12] MEDS: diphenhydrAMINE 2% CREAM 28.4 GM TUBE TOP SCH ×2 (14:31→20:29)
--- NOTE | 2018-03-12 15:10 | PDOC.EVN ---
Event Note - Event Note Event Note: ACP note- Chart noted and reviewed on detail.First visit with pt. Care discussed w Pt and at bedside. Pt awake and alert and seems to comprehend the care and disease.keeps c/o back pain I discussed with them that she indeed has multiple co morbidities and clinically is doing poorly.Discussed resuscitation status and what it entails.Pt and very hard of hearing and things explained multiple times. At this time they understand the gravity of situation nd pt does not want to be Intubated or undergo CPR,resuscitation efforts if need arises. Confirmed DNI/DNR. Ordered entered in [place].RN updated. will consult palliative care team as well . Total time spent in discussion 20 minutes.
--- NOTE | 2018-03-12 15:12 | PDOC.PN ---
- Subjective Encounter Start Date: 03/12/18 Encounter Start Time: 15:11 Subjective: c/o back pain .feels poorly w poor appetite and weakness and SOB -: worsening rash - Objective Resuscitation Status - Order Detail: 03/12/18 11:09 Resuscitation Status Routine Resuscitation Status: DNAR: NO Resuscitation Discussed with: discussed w pt and in detail.see ACP note MAR Reviewed: Yes Vital Signs & Weight: Vital Signs (12 hours) Temp Pulse Resp BP Pulse Ox 03/12/18 14:58 102 H 20 96 03/12/18 11:26 97.9 F 117 H 17 140/73 99 03/12/18 10:57 104 H 16 96 03/12/18 07:55 97.9 F 87 20 149/72 H 96 03/12/18 07:51 97 03/12/18 07:50 74 16 97 03/12/18 04:00 97.7 F 113 H 20 97/59 L 97 Weight Admit Weight 173 lb 6.4 oz Weight 168 lb 8 oz I&O: 03/11/18 03/12/18 03/13/18 06:59 06:59 06:59 Intake Total 680 1060 Output Total 850 1300 Balance -170 -240 Result Diagrams: 03/11/18 05:09 03/11/18 05:09 Additional Labs: Microbiology 03/07/18 Unknown Stool Stool Occult Blood (MARYCHUY) - Final 03/07/18 17:18 Urine Straight Catheter Urine Culture - Final NO GROWTH AT 48 HOURS 03/06/18 13:08 Venous blood - Right Hand Blood Culture - Final NO GROWTH IN 5 DAYS 03/06/18 12:05 Nasal swab Influenza Types A,B Direct EIA - Final 03/06/18 11:35 Venous blood - Left Hand Blood Culture - Final NO GROWTH IN 5 DAYS Laboratory Tests 02/10/18 03/06/18 11:13 11:35 B-Natriuretic Peptide 353.1 H 326.4 H Phys Exam - Physical Examination ill apperaing,awake and alert HEENT: PERRLA, sclera anicteric dry raw mucosa Neck: no nodes, no JVD, supple, full ROM Respiratory: no wheezing, no rales, no rhonchi, clear to auscultation bilateral Cardiovascular: irregular Gastrointestinal: soft, non-tender, no distention, positive bowel sounds Musculoskeletal: pulses present, edema present Neurological: non-focal, normal sensation, moves all 4 limbs Psychiatric: normal affect, A&O x 3 Deviation from normal: truckal MP rash Dx/Plan (1) Acute on chronic diastolic CHF (congestive heart failure) Code(s): I50.33 - ACUTE ON CHRONIC DIASTOLIC (CONGESTIVE) HEART FAILURE Status : Acute Comment: EF 50-55%. Patient unable to tolerate lisinopril --> developed hypotension. Unknown if rash also possibly related. (2) Atrial fibrillation with RVR Code(s): I48.91 - UNSPECIFIED ATRIAL FIBRILLATION Status: Acute Comment: BB and CCB on hold due to Hypotension.on Xarelto (3) Hydronephrosis, right Code(s): N13.30 - UNSPECIFIED HYDRONEPHROSIS Status: Acute Comment: Likely chronic, no additional evaluation planned (4) Pneumonia Code(s): J18.9 - PNEUMONIA, UNSPECIFIED ORGANISM Status: Acute Comment: Blood cultures negative. New rash, consistent with drug rash, worried about levaquin or protonix as potential new meds. Changed abx to doxycycline (5) Recurrent left pleural effusion Code(s): J90 - PLEURAL EFFUSION, NOT ELSEWHERE CLASSIFIED Status: Acute (6) Allergic drug rash Code(s): L27.0 - GEN SKIN ERUPTION DUE TO DRUGS AND MEDS TAKEN INTERNALLY Status: Acute (7) Dementia Code(s): F03.90 - UNSPECIFIED DEMENTIA WITHOUT BEHAVIORAL DISTURBANCE Status: Chronic (8) Severe mitral regurgitation Code(s): I34.0 - NONRHEUMATIC MITRAL (VALVE) INSUFFICIENCY Status: Chronic Comment: Significant comorbidity (9) Severe tricuspid regurgitation Code(s): I07.1 - RHEUMATIC TRICUSPID INSUFFICIENCY Status: Chronic (10) Weakness generalized Code(s): R53.1 - WEAKNESS Status: Acute (11) Carotid stenosis, right Code(s): I65.21 - OCCLUSION AND STENOSIS OF RIGHT CAROTID ARTERY Status: Chronic (12) Chronic low back pain Code(s): M54.5 - LOW BACK PAIN; G89.29 - OTHER CHRONIC PAIN Status: Chronic (13) GERD (gastroesophageal reflux disease) Code(s): K21.9 - GASTRO-ESOPHAGEAL REFLUX DISEASE WITHOUT ESOPHAGITIS Status: Chronic Qualifiers: Esophagitis presence: without esophagitis Qualified Code(s): K21.9 - Gastro -esophageal reflux disease without esophagitis - Plan plan discussed w/ family, continue antibiotics, PT/OT, respiratory therapy, incentive spirometry, out of bed/ambulate, DVT proph w/SCDs restart low dose CCB as HR high and BP imrpoved.monitor. -: add prn PO and Top benadryl. -: restart diureiss gently if BP stable tomorrow. -: increase ambulation if possible -: overall very poor prognosis W multiple co morbidities & acute illnesses. * . Review of Systems - Review of Systems Constitutional: weakness, malaise Respiratory: Dry, SOB with Excertion Cardiovascular: negative: chest pain, palpitations, orthopnea, paroxysmal nocturnal dyspnea, edema, light headedness, other Gastrointestinal: Nausea. negative: Vomiting, Abdominal Pain, Diarrhea, Constipation, Melena, Hematochezia, Other Genitourinary: negative: Dysuria, Frequency, Incontinence, Hematuria, Retention , Other Musculoskeletal: Back Pain. negative: Neck Pain, Shoulder Pain, Arm Pain, Hand Pain, Leg Pain, Foot Pain, Other Skin: Rash - Medications/Allergies Allergies/Adverse Reactions: Allergies Allergy/AdvReac Type Severity Reaction Status Date / Time No Known Drug Allergies Allergy Verified 10/31/17 16:00 Medications: Current Medications Acetaminophen (Tylenol) 650 mg PO Q4H PRN PRN Reason: Headache/Fever/Mild Pain (1-3) Last Admin: 03/10/18 21:13 Dose: 650 mg Acetaminophen (Tylenol) 650 mg [place] Q4H PRN PRN Reason: Headache/Fever/Mild Pain (1-3) Hydrocodone Bitart/Acetaminophen ([place] 5/325) 1 tab PO Q4H PRN PRN Reason: Severe Pain (7-10) Albuterol/Ipratropium (Duoneb) 3 ml NEB [id number] [facility] Last Admin: 03/12/18 14:58 Dose: 3 ml Diltiazem HCl (Cardizem Cd) 180 mg PO DAILY [facility] Diphenhydramine HCl (Benadryl) 25 mg PO Q6H PRN PRN Reason: Itching & Insomnia Doxycycline Hyclate (Vibramycin) 100 mg PO BID [facility] Last Admin: 03/12/18 08:03 Dose: 100 mg Gabapentin (Neurontin) 300 mg PO HS [facility] Last Admin: 03/11/18 21:16 Dose: 300 mg Methocarbamol (Robaxin) 500 mg PO Q8HR [facility] Last Admin: 03/12/18 14:31 Dose: 500 mg Miscellaneous Medication (Pharmacy To Dose) 1 each IVPB ONE PRN PRN Reason: Pharmacy to dose Stop: 03/16/18 14:32 Ondansetron HCl (Zofran) 4 mg SLOW IVP Q6H PRN PRN Reason: Nausea/Vomiting Last Admin: 03/12/18 12:13 Dose: 4 mg Oxybutynin Chloride (Ditropan) 5 mg PO HS [facility] Last Admin: 03/11/18 21:16 Dose: 5 mg Polyethylene Glycol (Miralax) 17 gm PO DAILY [facility] Last Admin: 03/12/18 08:03 Dose: 17 gm Potassium Chloride (Klor-Con 10) 10 meq PO DAILY [facility] Last Admin: 03/12/18 08:03 Dose: 10 meq Rivaroxaban (Xarelto) 20 mg PO DAILY [facility] Last Admin: 03/12/18 08:02 Dose: 20 mg Senna (Senokot) 1 tab PO BID PRN PRN Reason: Constipation Senna/Docusate Sodium (Senokot S) 2 tab PO BID PRN PRN Reason: Constipation Tramadol HCl (Ultram) 50 mg PO Q6H PRN PRN Reason: Moderate Pain (4-6) Last Admin: 03/12/18 08:53 Dose: 50 mg Zinc Acetate/Diphenhydramine (Benadryl 2% Cream) 0 gm TOP TID [facility] Last Admin: 03/12/18 14:31 Dose: 1 applic Zinc Sulfate (Zinc Sulfate) 220 mg PO DAILY [facility] Last Admin: 03/12/18 08:02 Dose: 220 mg
[2018-03-12] MEDS: HYDROcodone/Acetaminophen 5/325 mg Tablet PO PRN ×2 (17:50→22:44)
[2018-03-12] MEDS: Gabapentin 300 MG CAP PO SCH (20:21)
[2018-03-12] MEDS: Oxybutynin 5 MG TAB PO SCH (20:22)
[2018-03-12] MEDS: diphenhydrAMINE 25 MG CAP PO PRN (20:27)
[2018-03-13] MEDS: Methocarbamol 500 MG TAB PO SCH ×3 (05:23→20:00)
[2018-03-13 05:47] LABS: #Eosinphils 0.4 thou/uL (0.0-0.7); #Lymphocytes 1.2 thou/uL (1.20-3.40); #Monocytes 0.5 thou/uL (0.11-0.59); #Neutrophils 9.4 thou/uL (1.40-6.50); %Basophils 0.3 % (0.0-1.0); %Eosinophils 3.5 % (0.0-10.0); %Monocytes 4.4 % (0.0-10.0); %Neutrophils 81.8 % (42.0-75.0); Hemoglobin 9.9 g/dL (12.0-16.0); Mean Corpuscular HGB CONC 31.3 g/dL (32.0-36.0); Mean Corpuscular Hemoglobin 25.9 pg (27.0-31.0); Mean Corpuscular Volume 82.5 fL (78.0-98.0); Platelet Count 406 thou/uL (130-400); RBC Distribution Width 14.5 % (11.5-14.5); Red Blood Cell (RBC) Count 3.83 mill/uL (4.20-5.40); White Blood Cell (WBC) Count 11.5 thou/uL (4.8-10.8)
[2018-03-13] MEDS: Ondansetron PF 4 MG/2 ML Vial SLOW IVP PRN ×3 (05:55→19:56)
[2018-03-13 06:11] LABS: Anion Gap 14 mmol/L (10-20); BUN (Urea Nitrogen) 7 mg/dL (9.8-20.1); Calc. Creatinine Clearance 80 mL/min (70-130); Calcium 8.4 mg/dL (7.8-10.44); Carbon Dioxide 27 mmol/L (23-31); Chloride 91 mmol/L (98-107); Estimated GFR-MDRD Greater than 90; Glucose 100 mg/dL (83-110); Potassium 3.7 mmol/L (3.5-5.1); Sodium 128 mmol/L (136-145)
[2018-03-13] MEDS ORDERED: Furosemide 20 MG TAB PO SCH (09:15)
[2018-03-13] MEDS: Rivaroxaban 10 MG TAB PO SCH (09:25)
[2018-03-13] MEDS: Zinc Sulfate 220 MG CAP PO SCH (09:25)
[2018-03-13] MEDS: Doxycycline 100 MG CAP PO SCH ×2 (09:25→20:01)
[2018-03-13] MEDS: Potassium Chloride 10 MEQ TAB PO SCH (09:25)
[2018-03-13] MEDS: diphenhydrAMINE 2% CREAM 28.4 GM TUBE TOP SCH ×3 (09:26→20:01)
[2018-03-13] MEDS: Polyethylene Glycol 3350 17 GM Packet PO SCH (09:27)
[2018-03-13] MEDS: traMADol HCl 50 MG TAB PO PRN ×2 (09:28→19:59)
[2018-03-13] MEDS: HYDROcodone/Acetaminophen 5/325 mg Tablet PO PRN (14:18)
--- NOTE | 2018-03-13 15:09 | PDOC.PN ---
- Subjective Encounter Start Date: 03/13/18 Encounter Start Time: 15:02 Subjective: feels better. - Objective Resuscitation Status - Order Detail: 03/12/18 11:09 Resuscitation Status Routine Resuscitation Status: DNAR: NO Resuscitation Discussed with: discussed w pt and in detail.see ACP note MAR Reviewed: Yes Vital Signs & Weight: Vital Signs (12 hours) Temp Pulse Resp BP Pulse Ox 03/13/18 14:58 92 16 94 L 03/13/18 11:23 99.6 F 114 H 18 129/59 L 99 03/13/18 10:46 106 H 16 98 03/13/18 09:24 97 105/53 L 03/13/18 08:20 98 03/13/18 07:51 97.5 F L 97 18 103/58 L 98 03/13/18 06:51 93 L 03/13/18 06:49 89 16 93 L 03/13/18 03:55 98 F 99 20 117/57 L 100 Weight Admit Weight 173 lb 6.4 oz Weight 172 lb 1.6 oz I&O: 03/12/18 03/13/18 03/14/18 06:59 06:59 06:59 Intake Total 1060 965 Output Total 1300 1300 Balance -240 -335 Result Diagrams: 03/13/18 04:45 03/13/18 04:45 Additional Labs: Microbiology 03/07/18 Unknown Stool Stool Occult Blood (MARYCHUY) - Final 03/07/18 17:18 Urine Straight Catheter Urine Culture - Final NO GROWTH AT 48 HOURS 03/06/18 13:08 Venous blood - Right Hand Blood Culture - Final NO GROWTH IN 5 DAYS 03/06/18 12:05 Nasal swab Influenza Types A,B Direct EIA - Final 03/06/18 11:35 Venous blood - Left Hand Blood Culture - Final NO GROWTH IN 5 DAYS Laboratory Tests 02/10/18 03/06/18 11:13 11:35 B-Natriuretic Peptide 353.1 H 326.4 H Phys Exam - Physical Examination Constitutional: NAD Pale HEENT: PERRLA, moist MMs, sclera anicteric, oral pharynx no lesions Neck: no nodes, no JVD, supple, full ROM Respiratory: no wheezing, no rales Cardiovascular: RRR, no significant murmur Gastrointestinal: soft, non-tender, no distention, positive bowel sounds Musculoskeletal: no edema, pulses present Neurological: non-focal, normal sensation, moves all 4 limbs Psychiatric: normal affect Skin: no rash Dx/Plan (1) Acute on chronic diastolic CHF (congestive heart failure) Code(s): I50.33 - ACUTE ON CHRONIC DIASTOLIC (CONGESTIVE) HEART FAILURE Status : Acute Comment: EF 50-55%. Patient unable to tolerate lisinopril --> developed hypotension. Unknown if rash also possibly related. (2) Atrial fibrillation with RVR Code(s): I48.91 - UNSPECIFIED ATRIAL FIBRILLATION Status: Acute Comment: BB and CCB on hold due to Hypotension.on Xarelto (3) Hydronephrosis, right Code(s): N13.30 - UNSPECIFIED HYDRONEPHROSIS Status: Acute Comment: Likely chronic, no additional evaluation planned (4) Pneumonia Code(s): J18.9 - PNEUMONIA, UNSPECIFIED ORGANISM Status: Acute Comment: Blood cultures negative. New rash, consistent with drug rash, worried about levaquin or protonix as potential new meds. Changed abx to doxycycline (5) Recurrent left pleural effusion Code(s): J90 - PLEURAL EFFUSION, NOT ELSEWHERE CLASSIFIED Status: Acute (6) Allergic drug rash Code(s): L27.0 - GEN SKIN ERUPTION DUE TO DRUGS AND MEDS TAKEN INTERNALLY Status: Acute (7) Dementia Code(s): F03.90 - UNSPECIFIED DEMENTIA WITHOUT BEHAVIORAL DISTURBANCE Status: Chronic (8) Severe mitral regurgitation Code(s): I34.0 - NONRHEUMATIC MITRAL (VALVE) INSUFFICIENCY Status: Chronic Comment: Significant comorbidity (9) Severe tricuspid regurgitation Code(s): I07.1 - RHEUMATIC TRICUSPID INSUFFICIENCY Status: Chronic (10) Weakness generalized Code(s): R53.1 - WEAKNESS Status: Acute (11) Carotid stenosis, right Code(s): I65.21 - OCCLUSION AND STENOSIS OF RIGHT CAROTID ARTERY Status: Chronic (12) Chronic low back pain Code(s): M54.5 - LOW BACK PAIN; G89.29 - OTHER CHRONIC PAIN Status: Chronic (13) GERD (gastroesophageal reflux disease) Code(s): K21.9 - GASTRO-ESOPHAGEAL REFLUX DISEASE WITHOUT ESOPHAGITIS Status: Chronic Qualifiers: Esophagitis presence: without esophagitis Qualified Code(s): K21.9 - Gastro -esophageal reflux disease without esophagitis - Plan respiratory therapy, incentive spirometry, DVT proph w/SCDs restarted low dose lasix.monitor.clinically stable but no improvement -: PCT for gaols of care -: Ot/PT. -: am labs * . Review of Systems - Review of Systems Other: limited ROS - Medications/Allergies Allergies/Adverse Reactions: Allergies Allergy/AdvReac Type Severity Reaction Status Date / Time No Known Drug Allergies Allergy Verified 10/31/17 16:00 Medications: Current Medications Acetaminophen (Tylenol) 650 mg PO Q4H PRN PRN Reason: Headache/Fever/Mild Pain (1-3) Last Admin: 03/10/18 21:13 Dose: 650 mg Acetaminophen (Tylenol) 650 mg [place] Q4H PRN PRN Reason: Headache/Fever/Mild Pain (1-3) Hydrocodone Bitart/Acetaminophen ([place] 5/325) 1 tab PO Q4H PRN PRN Reason: Severe Pain (7-10) Last Admin: 03/13/18 14:18 Dose: 1 tab Albuterol/Ipratropium (Duoneb) 3 ml NEB [id number] [facility] Last Admin: 03/13/18 14:58 Dose: 3 ml Diltiazem HCl (Cardizem Cd) 180 mg PO DAILY [facility] Last Admin: 03/13/18 09:25 Dose: 180 mg Diphenhydramine HCl (Benadryl) 25 mg PO Q6H PRN PRN Reason: Itching & Insomnia Last Admin: 03/12/18 20:27 Dose: 25 mg Doxycycline Hyclate (Vibramycin) 100 mg PO BID [facility] Last Admin: 03/13/18 09:25 Dose: 100 mg Gabapentin (Neurontin) 300 mg PO HS [facility] Last Admin: 03/12/18 20:21 Dose: 300 mg Methocarbamol (Robaxin) 500 mg PO Q8HR [facility] Last Admin: 03/13/18 14:18 Dose: 500 mg Miscellaneous Medication (Pharmacy To Dose) 1 each IVPB ONE PRN PRN Reason: Pharmacy to dose Stop: 03/16/18 14:32 Ondansetron HCl (Zofran) 4 mg SLOW IVP Q6H PRN PRN Reason: Nausea/Vomiting Last Admin: 03/13/18 14:17 Dose: 4 mg Oxybutynin Chloride (Ditropan) 5 mg PO [facility] Last Admin: 03/12/18 20:22 Dose: 5 mg Polyethylene Glycol (Miralax) 17 gm PO DAILY [facility] Last Admin: 03/13/18 09:27 Dose: 17 gm Potassium Chloride (Klor-Con 10) 10 meq PO DAILY [facility] Last Admin: 03/13/18 09:25 Dose: 10 meq Rivaroxaban (Xarelto) 20 mg PO DAILY [facility] Last Admin: 03/13/18 09:25 Dose: 20 mg Senna (Senokot) 1 tab PO BID PRN PRN Reason: Constipation Senna/Docusate Sodium (Senokot S) 2 tab PO BID PRN PRN Reason: Constipation Sodium Chloride (Flush - Normal Saline) 10 ml IVF Q12HR RUBIN Sodium Chloride (Flush - Normal Saline) 10 ml IVF PRN PRN PRN Reason: Saline Flush Tramadol HCl (Ultram) 50 mg PO Q6H PRN PRN Reason: Moderate Pain (4-6) Last Admin: 03/13/18 09:28 Dose: 50 mg Zinc Acetate/Diphenhydramine (Benadryl 2% Cream) 0 gm TOP TID [facility] Last Admin: 03/13/18 14:18 Dose: 1 applic Zinc Sulfate (Zinc Sulfate) 220 mg PO DAILY [facility] Last Admin: 03/13/18 09:25 Dose: 220 mg
[2018-03-13] MEDS: diphenhydrAMINE 25 MG CAP PO PRN (19:59)
[2018-03-13] MEDS: Gabapentin 300 MG CAP PO SCH (19:59)
[2018-03-13] MEDS: Metoprolol Tartrate 25 MG TAB PO SCH (20:00)
[2018-03-13] MEDS: Oxybutynin 5 MG TAB PO SCH (20:00)
[2018-03-13] MEDS ORDERED: Morphine 4 MG/ML VIAL ONE (20:12)
[2018-03-13] MEDS: Promethazine HCl 25 MG/ML VIAL IM PRN ×2 (21:06→23:33)
[2018-03-14] MEDS: Promethazine HCl 25 MG/ML VIAL IM PRN ×4 (02:16→16:42)
[2018-03-14] MEDS: Methocarbamol 500 MG TAB PO SCH ×3 (05:06→21:14)
[2018-03-14] MEDS ORDERED: Furosemide 20 MG TAB PO SCH ×2 (09:09→09:15)
[2018-03-14] MEDS: Ondansetron PF 4 MG/2 ML Vial SLOW IVP PRN (09:12)
[2018-03-14] MEDS ORDERED: Furosemide 20 MG/2 ML VIAL SLOW IVP SCH (10:00)
[2018-03-14] MEDS: diphenhydrAMINE 2% CREAM 28.4 GM TUBE TOP SCH ×3 (10:55→21:17)
--- NOTE | 2018-03-14 11:18 | RAD ---
KUB: Date: 03-14-18 Provided Clinical History: Abdominal pain, nausea. FINDINGS: Abdominal bowel gas pattern is nonspecific. No radiographically apparent urinary tract calculi. Dorsa l column stimulator device overlies the right pelvis. The supine nature of the examination is not sen sitive for detection of pneumoperitoneum. IMPRESSION: Nonspecific bowel gas pattern. POS: [id number]
[2018-03-14] MEDS: Potassium Chloride 10 MEQ TAB PO SCH (12:19)
[2018-03-14] MEDS: Polyethylene Glycol 3350 17 GM Packet PO SCH (12:19)
[2018-03-14] MEDS: Rivaroxaban 10 MG TAB PO SCH (12:19)
[2018-03-14] MEDS: Metoprolol Tartrate 25 MG TAB PO SCH ×2 (12:20→21:14)
[2018-03-14] MEDS: Doxycycline 100 MG CAP PO SCH ×2 (12:21→21:14)
[2018-03-14] MEDS: Zinc Sulfate 220 MG CAP PO SCH (12:21)
--- NOTE | 2018-03-14 13:39 | PDOC.PN ---
- Subjective Encounter Start Date: 03/14/18 Encounter Start Time: 13:37 Subjective: nausea and poor po intake .no Abd pain.no appetite -: wants her to be kept comfortable -: discussed w daughter over phone - Objective Resuscitation Status - Order Detail: 03/12/18 11:09 Resuscitation Status Routine Resuscitation Status: DNAR: NO Resuscitation Discussed with: discussed w pt and in detail.see ACP note MAR Reviewed: Yes Vital Signs & Weight: Vital Signs (12 hours) Temp Pulse Resp BP Pulse Ox 03/14/18 12:16 98.4 F 105 H 20 127/60 97 03/14/18 10:30 82 16 96 03/14/18 08:10 98 03/14/18 07:39 98.3 F 97 16 110/57 L 98 03/14/18 06:42 85 16 97 03/14/18 03:45 99.1 F 88 19 100/53 L 93 L Weight Admit Weight 173 lb 6.4 oz Weight 172 lb 8 oz I&O: 03/13/18 03/14/18 03/15/18 06:59 06:59 06:59 Intake Total 965 1440 Output Total 1300 400 Balance -335 1040 Result Diagrams: 03/13/18 04:45 03/13/18 04:45 Additional Labs: Microbiology 03/06/18 13:08 Venous blood - Right Hand Blood Culture - Final NO GROWTH IN 5 DAYS 03/06/18 12:05 Nasal swab Influenza Types A,B Direct EIA - Final 03/06/18 11:35 Venous blood - Left Hand Blood Culture - Final NO GROWTH IN 5 DAYS Radiology Reviewed by me: Yes (KUB-no Ileus or SBO) Phys Exam - Physical Examination Constitutional: NAD lethargic HEENT: PERRLA, moist MMs, sclera anicteric, oral pharynx no lesions Neck: no nodes, no JVD, supple, full ROM Respiratory: no wheezing, no rales, no rhonchi, clear to auscultation bilateral Cardiovascular: RRR, no significant murmur, no rub Gastrointestinal: soft, non-tender, no distention poor bowel sounds Musculoskeletal: no edema, pulses present Neurological: non-focal, normal sensation, moves all 4 limbs Deviation from normal: somnolent Skin: no rash Dx/Plan (1) Acute on chronic diastolic CHF (congestive heart failure) Code(s): I50.33 - ACUTE ON CHRONIC DIASTOLIC (CONGESTIVE) HEART FAILURE Status : Acute Comment: EF 50-55%. Patient unable to tolerate lisinopril --> developed hypotension. Unknown if rash also possibly related. (2) Atrial fibrillation with RVR Code(s): I48.91 - UNSPECIFIED ATRIAL FIBRILLATION Status: Acute Comment: BB and CCB was on hold due to Hypotension.Now restarted. will monitor BP.on Xarelto (3) Hydronephrosis, right Code(s): N13.30 - UNSPECIFIED HYDRONEPHROSIS Status: Acute Comment: Likely chronic, no additional evaluation planned (4) Pneumonia Code(s): J18.9 - PNEUMONIA, UNSPECIFIED ORGANISM Status: Acute Comment: Blood cultures negative. New rash, consistent with drug rash, worried about levaquin or protonix as potential new meds. Changed abx to doxycycline (5) Recurrent left pleural effusion Code(s): J90 - PLEURAL EFFUSION, NOT ELSEWHERE CLASSIFIED Status: Acute (6) Allergic drug rash Code(s): L27.0 - GEN SKIN ERUPTION DUE TO DRUGS AND MEDS TAKEN INTERNALLY Status: Acute (7) Dementia Code(s): F03.90 - UNSPECIFIED DEMENTIA WITHOUT BEHAVIORAL DISTURBANCE Status: Chronic (8) Severe mitral regurgitation Code(s): I34.0 - NONRHEUMATIC MITRAL (VALVE) INSUFFICIENCY Status: Chronic Comment: Significant comorbidity (9) Severe tricuspid regurgitation Code(s): I07.1 - RHEUMATIC TRICUSPID INSUFFICIENCY Status: Chronic (10) Weakness generalized Code(s): R53.1 - WEAKNESS Status: Acute (11) Carotid stenosis, right Code(s): I65.21 - OCCLUSION AND STENOSIS OF RIGHT CAROTID ARTERY Status: Chronic (12) Chronic low back pain Code(s): M54.5 - LOW BACK PAIN; G89.29 - OTHER CHRONIC PAIN Status: Chronic (13) GERD (gastroesophageal reflux disease) Code(s): K21.9 - GASTRO-ESOPHAGEAL REFLUX DISEASE WITHOUT ESOPHAGITIS Status: Chronic Qualifiers: Esophagitis presence: without esophagitis Qualified Code(s): K21.9 - Gastro -esophageal reflux disease without esophagitis - Plan plan discussed w/ family, continue antibiotics, PT/OT, respiratory therapy, incentive spirometry, out of bed/ambulate, DVT proph w/SCDs Add lo dose lasix.Metoprolol & cardiazem restarted. -: Family leaning more towrds comfort care.will follow .PCT updated -: Poor prognosis with severe diastolic CHF,severe deconditioning -: trial of prn morphine for comfort if BP permits -: lab holiday tomorrow * . Review of Systems - Review of Systems Musculoskeletal: Back Pain Other: limited due to somnolence and pain - Medications/Allergies Allergies/Adverse Reactions: Allergies Allergy/AdvReac Type Severity Reaction Status Date / Time No Known Drug Allergies Allergy Verified 10/31/17 16:00 Medications: Current Medications Acetaminophen (Tylenol) 650 mg PO Q4H PRN PRN Reason: Headache/Fever/Mild Pain (1-3) Last Admin: 03/10/18 21:13 Dose: 650 mg Acetaminophen (Tylenol) 650 mg IN Q4H PRN PRN Reason: Headache/Fever/Mild Pain (1-3) Hydrocodone Bitart/Acetaminophen ([place] 5/325) 1 tab PO Q4H PRN PRN Reason: Severe Pain (7-10) Last Admin: 03/13/18 14:18 Dose: 1 tab Albuterol/Ipratropium (Duoneb) 3 ml NEB [id number] [facility] Last Admin: 03/14/18 10:30 Dose: 3 ml Diltiazem HCl (Cardizem Cd) 180 mg PO DAILY [facility] Last Admin: 03/14/18 12:20 Dose: 180 mg Diphenhydramine HCl (Benadryl) 25 mg PO Q6H PRN PRN Reason: Itching & Insomnia Last Admin: 03/13/18 19:59 Dose: 25 mg Doxycycline Hyclate (Vibramycin) 100 mg PO BID [facility] Last Admin: 03/14/18 12:21 Dose: 100 mg Furosemide (Lasix) 20 mg PO 0900,1400 [facility] Gabapentin (Neurontin) 300 mg PO HS [facility] Last Admin: 03/13/18 19:59 Dose: 300 mg Methocarbamol (Robaxin) 500 mg PO Q8HR [facility] Last Admin: 03/14/18 05:06 Dose: Not Given Metoprolol Tartrate (Lopressor) 12.5 mg PO BID [facility] Last Admin: 03/14/18 12:20 Dose: 12.5 mg Miscellaneous Medication (Pharmacy To Dose) 1 each IVPB ONE PRN PRN Reason: Pharmacy to dose Stop: 03/16/18 14:32 Morphine Sulfate (Morphine) 2 mg SLOW IVP Q4H PRN PRN Reason: breakthrough Pain Ondansetron HCl (Zofran) 4 mg SLOW IVP Q6H PRN PRN Reason: Nausea/Vomiting Last Admin: 03/14/18 09:12 Dose: 4 mg Oxybutynin Chloride (Ditropan) 5 mg PO HS [facility] Last Admin: 03/13/18 20:00 Dose: 5 mg Polyethylene Glycol (Miralax) 17 gm PO DAILY [facility] Last Admin: 03/14/18 12:19 Dose: 17 gm Potassium Chloride (Klor-Con 10) 10 meq PO DAILY [facility] Last Admin: 03/14/18 12:19 Dose: 10 meq Promethazine HCl (Phenergan) 12.5 mg IM Q2H PRN PRN Reason: Nausea/Vomiting Last Admin: 03/14/18 12:17 Dose: 12.5 mg Rivaroxaban (Xarelto) 20 mg PO DAILY [facility] Last Admin: 03/14/18 12:19 Dose: 20 mg Senna (Senokot) 1 tab PO BID PRN PRN Reason: Constipation Senna/Docusate Sodium (Senokot S) 2 tab PO BID PRN PRN Reason: Constipation Sodium Chloride (Flush - Normal Saline) 10 ml IVF Q12HR [facility] Last Admin: 03/14/18 09:13 Dose: 10 ml Sodium Chloride (Flush - Normal Saline) 10 ml IVF PRN PRN PRN Reason: Saline Flush Tramadol HCl (Ultram) 50 mg PO Q6H PRN PRN Reason: Moderate Pain (4-6) Last Admin: 03/13/18 09:28 Dose: 50 mg Zinc Acetate/Diphenhydramine (Benadryl 2% Cream) 0 gm TOP TID [facility] Last Admin: 03/14/18 10:55 Dose: 1 applic Zinc Sulfate (Zinc Sulfate) 220 mg PO DAILY [facility] Last Admin: 03/14/18 12:21 Dose: 220 mg
[2018-03-14] MEDS: Furosemide 20 MG TAB PO SCH (13:49)
[2018-03-14] MEDS: Gabapentin 300 MG CAP PO SCH (21:14)
[2018-03-14] MEDS: Oxybutynin 5 MG TAB PO SCH (21:14)
[2018-03-14] MEDS: Morphine 4 MG/ML VIAL SLOW IVP PRN (21:22)
[2018-03-15] MEDS: Morphine 4 MG/ML VIAL SLOW IVP PRN ×4 (04:30→21:18)
[2018-03-15] MEDS: Methocarbamol 500 MG TAB PO SCH ×3 (08:00→21:10)
[2018-03-15] MEDS: Zinc Sulfate 220 MG CAP PO SCH (09:00)
[2018-03-15] MEDS: Potassium Chloride 10 MEQ TAB PO SCH (09:00)
[2018-03-15] MEDS: diphenhydrAMINE 2% CREAM 28.4 GM TUBE TOP SCH ×3 (09:00→21:11)
[2018-03-15] MEDS: Polyethylene Glycol 3350 17 GM Packet PO SCH (09:00)
[2018-03-15] MEDS: Furosemide 20 MG TAB PO SCH ×2 (09:00→14:31)
[2018-03-15] MEDS: Doxycycline 100 MG CAP PO SCH ×2 (09:00→21:10)
[2018-03-15] MEDS: Rivaroxaban 10 MG TAB PO SCH (09:00)
[2018-03-15] MEDS: Metoprolol Tartrate 25 MG TAB PO SCH ×2 (09:00→21:10)
--- NOTE | 2018-03-15 13:04 | PDOC.PN ---
- Subjective Encounter Start Date: 03/15/18 Encounter Start Time: 13:02 Subjective: more comfortable last night after receiving morphine -: minimal PO intake.minimally responsive -: family express wishes for DC with hospice & to discuss w Hospice - Objective Resuscitation Status - Order Detail: 03/12/18 11:09 Resuscitation Status Routine Resuscitation Status: DNAR: NO Resuscitation Discussed with: discussed w pt and in detail.see ACP note MAR Reviewed: Yes Vital Signs & Weight: Vital Signs (12 hours) Temp Pulse Resp BP Pulse Ox 03/15/18 09:47 72 16 98 03/15/18 09:27 99.0 F 83 18 100/50 L 98 03/15/18 06:32 78 16 98 03/15/18 03:21 98.4 F 95 16 95/51 L 100 03/15/18 02:28 89 16 98 Weight Admit Weight 173 lb 6.4 oz Weight 166 lb 11.2 oz I&O: 03/14/18 03/15/18 03/16/18 06:59 06:59 06:59 Intake Total 1440 720 Output Total 400 2100 Balance 1040 -1380 Result Diagrams: 03/13/18 04:45 03/13/18 04:45 Additional Labs: Microbiology 03/07/18 Unknown Stool Stool Occult Blood (MARYCHUY) - Final 03/07/18 17:18 Urine Straight Catheter Urine Culture - Final NO GROWTH AT 48 HOURS 03/06/18 13:08 Venous blood - Right Hand Blood Culture - Final NO GROWTH IN 5 DAYS 03/06/18 12:05 Nasal swab Influenza Types A,B Direct EIA - Final 03/06/18 11:35 Venous blood - Left Hand Blood Culture - Final NO GROWTH IN 5 DAYS Phys Exam - Physical Examination Constitutional: NAD sleeping comfortable. responds to verbal stimuli lethargic HEENT: PERRLA, moist MMs, sclera anicteric, oral pharynx no lesions Neck: no nodes, no JVD, supple, full ROM Respiratory: no wheezing, no rales, no rhonchi, clear to auscultation bilateral Cardiovascular: RRR, no significant murmur Gastrointestinal: soft, non-tender, no distention, positive bowel sounds Musculoskeletal: no edema, pulses present Neurological: moves all 4 limbs Psychiatric: normal affect Deviation from normal: somnolent and minimally responsive Skin: no rash Dx/Plan (1) Acute on chronic diastolic CHF (congestive heart failure) Code(s): I50.33 - ACUTE ON CHRONIC DIASTOLIC (CONGESTIVE) HEART FAILURE Status : Acute Comment: EF 50-55%. Patient unable to tolerate lisinopril --> developed hypotension. Unknown if rash also possibly related. (2) Atrial fibrillation with RVR Code(s): I48.91 - UNSPECIFIED ATRIAL FIBRILLATION Status: Acute Comment: BB and CCB was on hold due to Hypotension.Now restarted. will monitor BP.on Xarelto (3) Hydronephrosis, right Code(s): N13.30 - UNSPECIFIED HYDRONEPHROSIS Status: Acute Comment: Likely chronic, no additional evaluation planned (4) Pneumonia Code(s): J18.9 - PNEUMONIA, UNSPECIFIED ORGANISM Status: Acute Comment: Blood cultures negative. New rash, consistent with drug rash, worried about levaquin or protonix as potential new meds. Changed abx to doxycycline (5) Recurrent left pleural effusion Code(s): J90 - PLEURAL EFFUSION, NOT ELSEWHERE CLASSIFIED Status: Acute (6) Allergic drug rash Code(s): L27.0 - GEN SKIN ERUPTION DUE TO DRUGS AND MEDS TAKEN INTERNALLY Status: Acute (7) Dementia Code(s): F03.90 - UNSPECIFIED DEMENTIA WITHOUT BEHAVIORAL DISTURBANCE Status: Chronic (8) Severe mitral regurgitation Code(s): I34.0 - NONRHEUMATIC MITRAL (VALVE) INSUFFICIENCY Status: Chronic Comment: Significant comorbidity (9) Severe tricuspid regurgitation Code(s): I07.1 - RHEUMATIC TRICUSPID INSUFFICIENCY Status: Chronic (10) Weakness generalized Code(s): R53.1 - WEAKNESS Status: Acute (11) Carotid stenosis, right Code(s): I65.21 - OCCLUSION AND STENOSIS OF RIGHT CAROTID ARTERY Status: Chronic (12) Chronic low back pain Code(s): M54.5 - LOW BACK PAIN; G89.29 - OTHER CHRONIC PAIN Status: Chronic (13) GERD (gastroesophageal reflux disease) Code(s): K21.9 - GASTRO-ESOPHAGEAL REFLUX DISEASE WITHOUT ESOPHAGITIS Status: Chronic Qualifiers: Esophagitis presence: without esophagitis Qualified Code(s): K21.9 - Gastro -esophageal reflux disease without esophagitis - Plan respiratory therapy, incentive spirometry, DVT proph w/SCDs family requesting DC w hospice .will coordinate -: had a detailed discussion with and daughter -: Charge Nurse and CM updated-appreciate help -: cont supportive care and prn morphine -: BP lower side but stable. * . Review of Systems - Review of Systems Musculoskeletal: Back Pain Other: limited due to somnolence - Medications/Allergies Allergies/Adverse Reactions: Allergies Allergy/AdvReac Type Severity Reaction Status Date / Time No Known Drug Allergies Allergy Verified 10/31/17 16:00 Medications: Current Medications Acetaminophen (Tylenol) 650 mg PO Q4H PRN PRN Reason: Headache/Fever/Mild Pain (1-3) Last Admin: 03/10/18 21:13 Dose: 650 mg Acetaminophen (Tylenol) 650 mg [place] Q4H PRN PRN Reason: Headache/Fever/Mild Pain (1-3) Hydrocodone Bitart/Acetaminophen ([place] 5/325) 1 tab PO Q4H PRN PRN Reason: Severe Pain (7-10) Last Admin: 03/13/18 14:18 Dose: 1 tab Albuterol/Ipratropium (Duoneb) 3 ml NEB [id number] [facility] Last Admin: 03/15/18 09:47 Dose: 3 ml Diltiazem HCl (Cardizem Cd) 180 mg PO DAILY [facility] Last Admin: 03/15/18 09:00 Dose: Not Given Diphenhydramine HCl (Benadryl) 25 mg PO Q6H PRN PRN Reason: Itching & Insomnia Last Admin: 03/13/18 19:59 Dose: 25 mg Doxycycline Hyclate (Vibramycin) 100 mg PO BID [facility] Last Admin: 03/15/18 09:00 Dose: Not Given Furosemide (Lasix) 20 mg PO 0900,1400 [facility] Last Admin: 03/15/18 09:00 Dose: Not Given Gabapentin (Neurontin) 300 mg PO HS [facility] Last Admin: 03/14/18 21:14 Dose: 300 mg Methocarbamol (Robaxin) 500 mg PO Q8HR [facility] Last Admin: 03/15/18 08:00 Dose: Not Given Metoprolol Tartrate (Lopressor) 12.5 mg PO BID [facility] Last Admin: 03/15/18 09:00 Dose: Not Given Miscellaneous Medication (Pharmacy To Dose) 1 each IVPB ONE PRN PRN Reason: Pharmacy to dose Stop: 03/16/18 14:32 Morphine Sulfate (Morphine) 2 mg SLOW IVP Q4H PRN PRN Reason: breakthrough Pain Last Admin: 03/15/18 04:30 Dose: 2 mg Ondansetron HCl (Zofran) 4 mg SLOW IVP Q6H PRN PRN Reason: Nausea/Vomiting Last Admin: 03/14/18 09:12 Dose: 4 mg Oxybutynin Chloride (Ditropan) 5 mg PO HS [facility] Last Admin: 03/14/18 21:14 Dose: 5 mg Polyethylene Glycol (Miralax) 17 gm PO DAILY [facility] Last Admin: 03/15/18 09:00 Dose: Not Given Potassium Chloride (Klor-Con 10) 10 meq PO DAILY [facility] Last Admin: 03/15/18 09:00 Dose: Not Given Promethazine HCl (Phenergan) 12.5 mg IM Q2H PRN PRN Reason: Nausea/Vomiting Last Admin: 03/14/18 16:42 Dose: 12.5 mg Rivaroxaban (Xarelto) 20 mg PO DAILY [facility] Last Admin: 03/15/18 09:00 Dose: Not Given Senna (Senokot) 1 tab PO BID PRN PRN Reason: Constipation Senna/Docusate Sodium (Senokot S) 2 tab PO BID PRN PRN Reason: Constipation Sodium Chloride (Flush - Normal Saline) 10 ml IVF Q12HR [facility] Last Admin: 03/15/18 09:00 Dose: Not Given Sodium Chloride (Flush - Normal Saline) 10 ml IVF PRN PRN PRN Reason: Saline Flush Tramadol HCl (Ultram) 50 mg PO Q6H PRN PRN Reason: Moderate Pain (4-6) Last Admin: 03/13/18 09:28 Dose: 50 mg Zinc Acetate/Diphenhydramine (Benadryl 2% Cream) 0 gm TOP TID [facility] Last Admin: 03/15/18 09:00 Dose: Not Given Zinc Sulfate (Zinc Sulfate) 220 mg PO DAILY [facility] Last Admin: 03/15/18 09:00 Dose: Not Given
--- NOTE | 2018-03-15 20:15 | EKG ---
Test Reason : SOB Blood Pressure : / mmHG Vent. Rate : 083 BPM Atrial Rate : 000 BPM P-R Int : 000 ms QRS Dur : 064 ms QT Int : 370 ms P-R-T Axes : 000 023 002 degrees QTc Int : 434 ms Atrial fibrillation Low voltage QRS Confirmed by BERNIE COTTO ([id number]), photograph editor CARRIE MARKS ([id number]) on 03/15/2018 8:15:24 PM Referred By: Confirmed By:BERNIE COTTO
[2018-03-15] MEDS: Gabapentin 300 MG CAP PO SCH (21:10)
[2018-03-15] MEDS: Oxybutynin 5 MG TAB PO SCH (21:10)
[2018-03-16] MEDS: Morphine 4 MG/ML VIAL SLOW IVP PRN ×5 (00:16→20:21)
[2018-03-16] MEDS: Methocarbamol 500 MG TAB PO SCH ×3 (05:33→21:20)
[2018-03-16] MEDS: Rivaroxaban 10 MG TAB PO SCH (09:02)
[2018-03-16] MEDS: Potassium Chloride 10 MEQ TAB PO SCH (09:45)
[2018-03-16] MEDS: Metoprolol Tartrate 25 MG TAB PO SCH ×2 (09:45→20:19)
[2018-03-16] MEDS: Doxycycline 100 MG CAP PO SCH ×2 (09:45→20:18)
[2018-03-16] MEDS: Furosemide 20 MG TAB PO SCH ×2 (09:46→14:02)
[2018-03-16] MEDS: Polyethylene Glycol 3350 17 GM Packet PO SCH (09:46)
[2018-03-16] MEDS: diphenhydrAMINE 2% CREAM 28.4 GM TUBE TOP SCH ×3 (09:51→20:19)
[2018-03-16] MEDS: Zinc Sulfate 220 MG CAP PO SCH (10:01)
--- NOTE | 2018-03-16 12:49 | PDOC.PN ---
- Subjective Encounter Start Date: 03/16/18 Encounter Start Time: 12:48 Subjective: c/o back pain,otherwise not much conversant due to somnolence -: no overnight events - Objective Resuscitation Status - Order Detail: 03/12/18 11:09 Resuscitation Status Routine Resuscitation Status: DNAR: NO Resuscitation Discussed with: discussed w pt and in detail.see ACP note MAR Reviewed: Yes Vital Signs & Weight: Vital Signs (12 hours) Temp Pulse Resp BP Pulse Ox 03/16/18 08:30 98.9 F 91 16 121/57 L 99 03/16/18 05:30 97.8 F 80 20 113/57 L 99 Weight Admit Weight 173 lb 6.4 oz Weight 163 lb 11.2 oz I&O: 03/15/18 03/16/18 03/17/18 06:59 06:59 06:59 Intake Total 720 200 Output Total 2100 900 Balance -1380 -700 Result Diagrams: 03/13/18 04:45 03/13/18 04:45 Additional Labs: Microbiology 03/07/18 Unknown Stool Stool Occult Blood (MARYCHUY) - Final 03/07/18 17:18 Urine Straight Catheter Urine Culture - Final NO GROWTH AT 48 HOURS 03/06/18 13:08 Venous blood - Right Hand Blood Culture - Final NO GROWTH IN 5 DAYS 03/06/18 12:05 Nasal swab Influenza Types A,B Direct EIA - Final 03/06/18 11:35 Venous blood - Left Hand Blood Culture - Final NO GROWTH IN 5 DAYS Phys Exam - Physical Examination Constitutional: NAD gave water by glass & she drank it herself HEENT: PERRLA, moist MMs, sclera anicteric, oral pharynx no lesions Neck: no nodes, no JVD, supple, full ROM Respiratory: no wheezing, no rales, no rhonchi, clear to auscultation bilateral Cardiovascular: RRR, no significant murmur Gastrointestinal: soft, non-tender, no distention, positive bowel sounds Musculoskeletal: no edema, pulses present Neurological: moves all 4 limbs Dx/Plan (1) Acute on chronic diastolic CHF (congestive heart failure) Code(s): I50.33 - ACUTE ON CHRONIC DIASTOLIC (CONGESTIVE) HEART FAILURE Status : Acute Comment: EF 50-55%. Patient unable to tolerate lisinopril --> developed hypotension. Unknown if rash also possibly related.on low dose lasix (2) Atrial fibrillation with RVR Code(s): I48.91 - UNSPECIFIED ATRIAL FIBRILLATION Status: Acute Comment: BB and CCB was on hold due to Hypotension.Now restarted. will monitor BP.on Xarelto (3) Hydronephrosis, right Code(s): N13.30 - UNSPECIFIED HYDRONEPHROSIS Status: Acute Comment: Likely chronic, no additional evaluation planned (4) Pneumonia Code(s): J18.9 - PNEUMONIA, UNSPECIFIED ORGANISM Status: Acute Comment: Blood cultures negative. New rash, consistent with drug rash, worried about levaquin or protonix as potential new meds. Changed abx to doxycycline (5) Recurrent left pleural effusion Code(s): J90 - PLEURAL EFFUSION, NOT ELSEWHERE CLASSIFIED Status: Acute (6) Allergic drug rash Code(s): L27.0 - GEN SKIN ERUPTION DUE TO DRUGS AND MEDS TAKEN INTERNALLY Status: Acute (7) Dementia Code(s): F03.90 - UNSPECIFIED DEMENTIA WITHOUT BEHAVIORAL DISTURBANCE Status: Chronic (8) Severe mitral regurgitation Code(s): I34.0 - NONRHEUMATIC MITRAL (VALVE) INSUFFICIENCY Status: Chronic Comment: Significant comorbidity (9) Severe tricuspid regurgitation Code(s): I07.1 - RHEUMATIC TRICUSPID INSUFFICIENCY Status: Chronic (10) Weakness generalized Code(s): R53.1 - WEAKNESS Status: Acute (11) Carotid stenosis, right Code(s): I65.21 - OCCLUSION AND STENOSIS OF RIGHT CAROTID ARTERY Status: Chronic (12) Chronic low back pain Code(s): M54.5 - LOW BACK PAIN; G89.29 - OTHER CHRONIC PAIN Status: Chronic (13) GERD (gastroesophageal reflux disease) Code(s): K21.9 - GASTRO-ESOPHAGEAL REFLUX DISEASE WITHOUT ESOPHAGITIS Status: Chronic Qualifiers: Esophagitis presence: without esophagitis Qualified Code(s): K21.9 - Gastro -esophageal reflux disease without esophagitis - Plan respiratory therapy, incentive spirometry, DVT proph w/SCDs awaiting final DC disposition.Home Vs NH w hospice -: cont gentle diuresis.on BB and lisinopril -: stop doxycycline as no clear benefit -: DC when hospice finalized -: HD stable.MS contin on hold d/t low BP * . Review of Systems - Review of Systems Other: can not be obtained due to lethargy and reduced responsiveness - Medications/Allergies Allergies/Adverse Reactions: Allergies Allergy/AdvReac Type Severity Reaction Status Date / Time No Known Drug Allergies Allergy Verified 10/31/17 16:00 Medications: Current Medications Acetaminophen (Tylenol) 650 mg PO Q4H PRN PRN Reason: Headache/Fever/Mild Pain (1-3) Last Admin: 03/10/18 21:13 Dose: 650 mg Acetaminophen (Tylenol) 650 mg [place] Q4H PRN PRN Reason: Headache/Fever/Mild Pain (1-3) Hydrocodone Bitart/Acetaminophen ([place] 5/325) 1 tab PO Q4H PRN PRN Reason: Severe Pain (7-10) Last Admin: 03/13/18 14:18 Dose: 1 tab Albuterol/Ipratropium (Duoneb) 3 ml NEB [id number] PRN PRN Reason: SOB &/or Wheezing Diltiazem HCl (Cardizem Cd) 180 mg PO DAILY [facility] Last Admin: 03/16/18 09:46 Dose: 180 mg Diphenhydramine HCl (Benadryl) 25 mg PO Q6H PRN PRN Reason: Itching & Insomnia Last Admin: 03/13/18 19:59 Dose: 25 mg Doxycycline Hyclate (Vibramycin) 100 mg PO BID [facility] Last Admin: 03/16/18 09:45 Dose: 100 mg Furosemide (Lasix) 20 mg PO 0900,1400 [facility] Last Admin: 03/16/18 09:46 Dose: 20 mg Gabapentin (Neurontin) 300 mg PO HS [facility] Last Admin: 03/15/18 21:10 Dose: 300 mg Methocarbamol (Robaxin) 500 mg PO Q8HR [facility] Last Admin: 03/16/18 05:33 Dose: 500 mg Metoprolol Tartrate (Lopressor) 12.5 mg PO BID [facility] Last Admin: 03/16/18 09:45 Dose: 12.5 mg Miscellaneous Medication (Pharmacy To Dose) 1 each IVPB ONE PRN PRN Reason: Pharmacy to dose Stop: 03/16/18 14:32 Morphine Sulfate (Morphine) 2 mg SLOW IVP Q4H PRN PRN Reason: breakthrough Pain Last Admin: 03/16/18 09:58 Dose: 2 mg Ondansetron HCl (Zofran) 4 mg SLOW IVP Q6H PRN PRN Reason: Nausea/Vomiting Last Admin: 03/14/18 09:12 Dose: 4 mg Oxybutynin Chloride (Ditropan) 5 mg PO HS [facility] Last Admin: 03/15/18 21:10 Dose: 5 mg Polyethylene Glycol (Miralax) 17 gm PO DAILY [facility] Last Admin: 03/16/18 09:46 Dose: 17 gm Potassium Chloride (Klor-Con 10) 10 meq PO DAILY [facility] Last Admin: 03/16/18 09:45 Dose: 10 meq Promethazine HCl (Phenergan) 12.5 mg IM Q2H PRN PRN Reason: Nausea/Vomiting Last Admin: 03/14/18 16:42 Dose: 12.5 mg Rivaroxaban (Xarelto) 20 mg PO DAILY [facility] Last Admin: 03/15/18 09:00 Dose: Not Given Senna (Senokot) 1 tab PO BID PRN PRN Reason: Constipation Senna/Docusate Sodium (Senokot S) 2 tab PO BID PRN PRN Reason: Constipation Sodium Chloride (Flush - Normal Saline) 10 ml IVF Q12HR [facility] Last Admin: 03/16/18 09:47 Dose: 10 ml Sodium Chloride (Flush - Normal Saline) 10 ml IVF PRN PRN PRN Reason: Saline Flush Last Admin: 03/16/18 00:16 Dose: 10 ml Tramadol HCl (Ultram) 50 mg PO Q6H PRN PRN Reason: Moderate Pain (4-6) Last Admin: 03/13/18 09:28 Dose: 50 mg Zinc Acetate/Diphenhydramine (Benadryl 2% Cream) 0 gm TOP TID [facility] Last Admin: 03/16/18 09:51 Dose: 1 applic Zinc Sulfate (Zinc Sulfate) 220 mg PO DAILY [facility] Last Admin: 03/16/18 10:01 Dose: Not Given
[2018-03-16] MEDS: Promethazine HCl 25 MG/ML VIAL IM PRN ×2 (16:13→20:20)
[2018-03-16] MEDS: HYDROcodone/Acetaminophen 5/325 mg Tablet PO PRN (17:32)
[2018-03-16] MEDS: Gabapentin 300 MG CAP PO SCH (20:19)
[2018-03-16] MEDS: Oxybutynin 5 MG TAB PO SCH (20:20)
[2018-03-17] MEDS: Promethazine HCl 25 MG/ML VIAL IM PRN ×3 (00:23→09:01)
[2018-03-17] MEDS: Morphine 4 MG/ML VIAL SLOW IVP PRN ×3 (00:24→09:02)
[2018-03-17] MEDS: Methocarbamol 500 MG TAB PO SCH (05:12)
--- NOTE | 2018-03-17 08:15 | PDOC.PN ---
- Subjective Encounter Start Date: 03/17/18 Encounter Start Time: 08:13 Subjective: Seen and examined -no new complaint - Objective Resuscitation Status - Order Detail: 03/12/18 11:09 Resuscitation Status Routine Resuscitation Status: DNAR: NO Resuscitation Discussed with: discussed w pt and in detail.see ACP note Vital Signs & Weight: Vital Signs (12 hours) Temp Pulse Resp BP Pulse Ox 03/17/18 03:50 97.9 F 70 18 103/62 93 L 03/16/18 20:15 97.8 F 85 16 126/69 98 Weight Admit Weight 173 lb 6.4 oz Weight 165 lb I&O: 03/16/18 03/17/18 03/18/18 06:59 06:59 06:59 Intake Total 200 777 Output Total 900 560 Balance -700 217 Result Diagrams: 03/13/18 04:45 03/13/18 04:45 Phys Exam - Physical Examination Constitutional: NAD HEENT: PERRLA, moist MMs, sclera anicteric Neck: no nodes, no JVD, supple, full ROM Respiratory: no wheezing, no rales, no rhonchi, clear to auscultation bilateral Cardiovascular: RRR, no significant murmur Gastrointestinal: soft, non-tender, no distention Musculoskeletal: pulses present Dx/Plan (1) Acute on chronic diastolic CHF (congestive heart failure) Code(s): I50.33 - ACUTE ON CHRONIC DIASTOLIC (CONGESTIVE) HEART FAILURE Status : Acute Comment: EF 50-55%. Patient unable to tolerate lisinopril --> developed hypotension. Unknown if rash also possibly related.on low dose lasix (2) Allergic drug rash Code(s): L27.0 - GEN SKIN ERUPTION DUE TO DRUGS AND MEDS TAKEN INTERNALLY Status: Acute (3) Atrial fibrillation with RVR Code(s): I48.91 - UNSPECIFIED ATRIAL FIBRILLATION Status: Acute Comment: BB and CCB was on hold due to Hypotension.Now restarted. will monitor BP.on Xarelto (4) Hydronephrosis, right Code(s): N13.30 - UNSPECIFIED HYDRONEPHROSIS Status: Acute Comment: Likely chronic, no additional evaluation planned (5) Pneumonia Code(s): J18.9 - PNEUMONIA, UNSPECIFIED ORGANISM Status: Acute Comment: Blood cultures negative. New rash, consistent with drug rash, worried about levaquin or protonix as potential new meds. Changed abx to doxycycline (6) Recurrent left pleural effusion Code(s): J90 - PLEURAL EFFUSION, NOT ELSEWHERE CLASSIFIED Status: Acute (7) Dementia Code(s): F03.90 - UNSPECIFIED DEMENTIA WITHOUT BEHAVIORAL DISTURBANCE Status: Chronic (8) Severe mitral regurgitation Code(s): I34.0 - NONRHEUMATIC MITRAL (VALVE) INSUFFICIENCY Status: Chronic Comment: Significant comorbidity (9) Weakness generalized Code(s): R53.1 - WEAKNESS Status: Acute (10) Chronic low back pain Code(s): M54.5 - LOW BACK PAIN; G89.29 - OTHER CHRONIC PAIN Status: Chronic (11) Hyponatremia Code(s): E87.1 - HYPO-OSMOLALITY AND HYPONATREMIA Status: Chronic - Plan plan 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
[2018-03-17] MEDS: Doxycycline 100 MG CAP PO SCH (08:59)
[2018-03-17] MEDS: Rivaroxaban 10 MG TAB PO SCH (08:59)
[2018-03-17] MEDS: Furosemide 20 MG TAB PO SCH (08:59)
[2018-03-17] MEDS: Metoprolol Tartrate 25 MG TAB PO SCH (08:59)
[2018-03-17] MEDS: diphenhydrAMINE 2% CREAM 28.4 GM TUBE TOP SCH (09:00)
[2018-03-17] MEDS: Potassium Chloride 10 MEQ TAB PO SCH (09:01)
[2018-03-17] MEDS: Polyethylene Glycol 3350 17 GM Packet PO SCH (09:01)
[2018-03-17] MEDS: Zinc Sulfate 220 MG CAP PO SCH (09:01)
[2018-03-17] MEDS ORDERED: traMADol HCl 50 MG TAB PO PRN (10:42)
[2018-03-17] MEDS: HYDROcodone/Acetaminophen 5/325 mg Tablet PO PRN (12:10)
[2018-03-17 12:16] VITALS: BP 118/62; TEMP 97.2
[2018-03-17 14:10] VITALS: BMI 26.6
--- NOTE | 2018-03-18 18:42 | DIS ---
DATE OF ADMISSION: 03/06/2018 DATE OF DISCHARGE: 03/17/2018 For details of the history and physical and consultative notes, please refer to dictations and records. SUMMARY: An 87-year-old female patient who presented here from the nursing facility with a history of pneumonia, noted to have hematuria for which Urology saw the patient. The patient was placed on antibiotics to address the sepsis and pneumonitis. Urology evaluated this patient and was noted with a right hydronephrosis. However, given the comorbidities and the frail nature of this patient, decision was taken not to do any further aggressive intervention. The patient continued on medical treatment with antibiotics, which sustained clinical improvement. After the family's discussion, decision was taken to have the palliative care team to evaluate this patient and the patient was found not to be a candidate for inpatient hospice at this point. Therefore palliative care team will follow up with this patient, was appropriate for inpatient hospice level care. Therefore, decision was taken to have this patient go home with hospice, having been accepted by compassionate care. All arrangement finalized for the patient to go home under supervision of compassionate care. A decision was then taken to discharge this patient on the following medications; 1. Ascorbic acid 500 mg p.o. b.i.d. 2. Tums q.i.d. p.r.n. 3. Cipro 250 mg every 12. 4. Neurontin 300 mg p.o. at bedtime. 5. Hydrocortisone cream 2.5%. 6. DuoNebs q.4 p.r.n. 7. Robaxin 500 mg p.o. q.8. 8. Metoclopramide 5 mg p.o. daily. 9. MS Contin 30 mg p.o. q.8 p.r.n. 10. Omeprazole 20 mg p.o. daily. 11. Zofran 4 mg q.6 p.r.n. 12. Ditropan 5 mg p.o. at bedtime. 13. MiraLAX 17 g p.o. daily. 14. Potassium 10 mEq p.o. daily. 15. Pro-Stat 30 mL p.o. b.i.d. 16. Xarelto 20 mg p.o. daily. 17. Senokot 8.6 mg p.o. b.i.d. p.r.n. 18. Tramadol 50 mg p.o. q.6 p.r.n. 19. Zinc sulfate 220 mg p.o. daily. 20. Aspirin 81 mg daily. 21. Lipitor 20 mg p.o. at bedtime. 22. Diltiazem 180 mg p.o. daily. 23. Furosemide 20 mg p.o. b.i.d. 24. Metoprolol 50 mg p.o. b.i.d. DISCHARGE INSTRUCTIONS: Will be based on the recommendations of the compassionate care. Total time spent including [id number] encounter 32 minutes. Job ID: [id number]
== END 2018-03-17 14:00 | disposition hospice, home (50) | DRG 871 ==
LOC: ERS 11:25 → ERHOLD 13:34 → 2NO 15:13
PROVIDERS: ADMIT Internal Medicine; ATTEND Internal Medicine
DX: A41.9 Sepsis, unspecified organism (principal); I50.33 Acute on chronic diastolic (congestive) heart failure; J18.1 Lobar pneumonia, unspecified organism; N13.39 Other hydronephrosis; E87.1 Hypo-osmolality and hyponatremia; G89.29 Other chronic pain; Y95 Nosocomial condition; I11.0 Hypertensive heart disease with heart failure; I48.2 Chronic atrial fibrillation; F03.90 Unspecified dementia, unspecified severity, without behavioral disturbance, psychotic disturbance, mood disturbance, and anxiety; Z51.5 Encounter for palliative care; Z66 Do not resuscitate; L27.0 Generalized skin eruption due to drugs and medicaments taken internally; T50.905A Adverse effect of unspecified drugs, medicaments and biological substances, initial encounter; R31.29 Other microscopic hematuria; L89.152 Pressure ulcer of sacral region, stage 2; I08.1 Rheumatic disorders of both mitral and tricuspid valves; E87.8 Other disorders of electrolyte and fluid balance, not elsewhere classified; M54.5 Low back pain; K21.9 Gastro-esophageal reflux disease without esophagitis; I65.21 Occlusion and stenosis of right carotid artery; F41.8 Other specified anxiety disorders; Z79.82 Long term (current) use of aspirin; Z79.891 Long term (current) use of opiate analgesic; Z79.01 Long term (current) use of anticoagulants
CPT/HCPCS: 36415; 71045; 71260; 74018; 74177; 80048; 80053; 80202; 81003; 81015; 82274; 82805; 83605; 83880; 84484; 85025; 87040; 87086; 87804; 93005; 93306; 93798; 94640; 96361; 96365; 96375; A4353; C9113; J1940; J1956; J2270; J2405; J2543; J2550; J2930; J3370; J7050; J7620